=== PATIENT | male | born 1975 | race Caucasian/White ===

== ENCOUNTER 2016-10-12 05:24 | Inpatient (IN) | payer BC, OTHER ==
[2016-09-13 11:24] VITALS: BMI 40.0
[2016-09-13 11:25] LABS: BASO % 0.4 %; BASO ABS # 0.03 K/uL (0-0.2); COMPLETE YES; EOS % 1.5 %; IG% 0.6 %; LYMPH % 25.5 %; LYMPH ABS # 2.03 K/uL (1.2-3.4); MEAN CELL VOLUME 89.7 fL (80-100); MEAN CORPUSCULAR HEMOGLOBIN 30.9 pg (25-34); MEAN CORPUSCULAR HGB CONC 34.5 g/dl (32-36); MEAN PLATELET VOLUME 8.9 fL (7.4-10.4); MONO % 7.3 %; NEUT % 64.7 %; PLATELET COUNT 291 K/uL (130-400); RED BLOOD COUNT 5.24 M/uL (4.7-6.1); WHITE BLOOD COUNT 7.96 K/uL (4.8-10.8)
[2016-09-13 11:39] LABS: INR 1.2 (0.9-1.1); PARTIAL THROMBOPLASTIN RATIO 1.1; PROTHROMBIN TIME (PATIENT) 12.6 SECONDS (9.0-12.0)
[2016-09-13 11:53] LABS: BUN/CREATININE RATIO 7.4 (10-20); CALCIUM 8.8 mg/dl (8.5-10.1); CREATININE 1.4 mg/dl (0.60-1.40); POTASSIUM 4.7 mmol/L (3.5-5.1)
--- NOTE | 2016-09-13 12:09 | PAT Medication Instructions ---
Service Date Sep 13, 2016. Current Home Medication List Amphetamine Asp/Sulf/Dextramph (Adderall *), 30 MG PO BID Aripiprazole (Abilify), 2 MG PO DAILY PRN for Depression Duloxetine Hcl (Cymbalta *), 30 MG PO QAM Glucosamine-Chondroitin (Glucosamine/Chondroitin 250/200MG), 2 CAP PO QAM Lamotrigine (Lamictal), 50 MG PO HS Lorazepam (Ativan), 1 MG PO HS Multivitamin (Multivitamin), 1 TAB PO QAM Oxycodone/Acetaminophen 5MG/325MG (Percocet 5MG/325MG), 1 TABLET PO NOON PRN for Pain Rivaroxaban (Xarelto), 20 MG PO QAM Medication Instructions For Your Scheduled Surgery Rivaroxaban (Xarelto), 20 MG PO QAM (check with family doctor and/ or surgeon for instructions) - Hold the following medications 7 days prior to surgery: Glucosamine-Chondroitin (Glucosamine/Chondroitin 250/200MG), 2 CAP PO QAM - Hold the following medications the morning of surgery: Multivitamin (Multivitamin), 1 TAB PO QAM Amphetamine Asp/Sulf/Dextramph (Adderall *), 30 MG PO BID - Take the following medications the morning of surgery with a sip of water: Oxycodone/Acetaminophen 5MG/325MG (Percocet 5MG/325MG), 1 TABLET PO NOON PRN for Pain (can take up to four hours prior to surgery if needed) Duloxetine Hcl (Cymbalta *), 30 MG PO QAM Aripiprazole (Abilify), 2 MG PO DAILY PRN for Depression Lamotrigine (Lamictal), 50 MG PO AM - Take the following medications as scheduled the night before surgery: Oxycodone/Acetaminophen 5MG/325MG (Percocet 5MG/325MG), 1 TABLET PO NOON PRN for Pain Lorazepam (Ativan), 1 MG PO HS Amphetamine Asp/Sulf/Dextramph (Adderall *), 30 MG PO BID If you have any questions please call us at [phone] or [phone] ( Jia) or [phone]
[2016-09-13 12:29] LABS: URINE APPEARANCE CLEAR (CLEAR); URINE BILIRUBIN NEG (NEG); URINE COLOR YELLOW; URINE EPITHELIAL CELL AUTO 0-5 /lpf (0-5); URINE NITRITE NEG (NEG); URINE PH 6.5 (4.5-7.5); URINE SPECIFIC GRAVITY 1.016 (1.000-1.030); UROBILINOGEN NEG (NEG)
--- NOTE | 2016-09-13 12:29 | DIAGNOSTIC IMAGING REPORT ---
CHEST 2 VIEWS ROUTINE CLINICAL HISTORY: Preoperative evaluation. COMPARISON STUDY: No previous studies for comparison. FINDINGS: Lung volumes are normal. There are no areas of consolidation. There is no pneumothorax or pleural effusion. Cardiac size is normal. Mediastinal contours are normal. There is no evidence of pulmonary edema. IMPRESSION: No acute cardiopulmonary findings. Electronically signed by: Nic Sutherland M.D. 09/13/2016 12:28 PM
[2016-09-13 12:34] LABS: MANUAL MICROSCOPIC REQUIRED? NO; REVIEW REQ? NO
--- NOTE | 2016-10-11 07:06 | HISTORY & PHYSICAL EXAMINATION ---
DATE OF ADMISSION: 10/12/2016 CHIEF COMPLAINT: Medial compartmental arthritis of the left knee. HISTORY OF PRESENT ILLNESS: Jt is a very pleasant 41-year-old male who has been dealing with chronic left knee pain. X-rays and clinical examination were diagnostic for medial compartmental arthritis of the left knee. After failing years of conservative treatment including multiple injections, he elected to proceed with a left unicompartmental knee arthroplasty. PAST MEDICAL HISTORY: Significant for depression, blood clots. MEDICATIONS: Include Xarelto, Cymbalta, and lorazepam. PAST SURGICAL HISTORY: Significant for knee arthroscopy, back surgery and shoulder arthroscopy. ALLERGIES: None. FAMILY HISTORY: Noncontributory. SOCIAL HISTORY: He is , rarely drinks. He remains very active. REVIEW OF SYSTEMS: The patient complains of left knee pain. All other pertinent review of systems are negative. PHYSICAL EXAMINATION: GENERAL: He is awake, alert and oriented x3. He is in no apparent distress. He is very pleasant. HEENT: Pupils equal, round and reactive to light. Extraocular motion intact. Oral mucosa is pink and moist. VITAL SIGNS: Regular rate per radial pulse. LUNGS: Izabella symmetrically bilaterally with no audible breath sounds. ABDOMEN: Soft, nontender, nondistended. MUSCULOSKELETAL: On physical examination of the left knee, he does have a slight varus deformity. He has a lot of tenderness to palpation along the medial joint line and over the distal medial femoral condyle. IMAGING DATA: X-rays of the left knee do show arthritis of the medial compartment of the left knee with medial right-sided collapse, stress x-rays do show pentecostal of the joint line. IMPRESSION: He has had medial compartmental arthritis of the left knee. PLAN: We will proceed with a left knee unicompartmental arthroplasty. Postoperatively, he will be placed in a soft dressing and kept overnight for postoperative medical management.
[2016-10-12] VITALS (8 sets, daily range): BP systolic 106–161; BP diastolic 66–94; PULSE 76–92; TEMP 36.7–36.9; O2SAT 93–98; Ht 175.3 cm; Wt 123.0 kg
[~2016-10-12] VITALS: Ht 175.3 cm; Wt 123.0 kg
[~2016-10-12 05:24] MED LIST: ADD/10 PO; ARIP1TAB8 PO; CYM60 PO; GLUC250C5 PO; OXYC-57 PO; RIVA1TAB4 PO
[2016-10-12] MEDS ORDERED: LACTATED RINGER'S 1000ML 500 ML IV ONE (06:00)
[2016-10-12] MEDS ORDERED: GABAPENTIN 300 MG CAP PO SCH (06:00)
[2016-10-12] MEDS ORDERED: CEFAZOLIN 3000 MG/65 ML D5W 65 ML IV SCH (06:00)
[2016-10-12] MEDS ORDERED: ACETAMINOPHEN 500 MG TAB PO SCH (06:00)
[2016-10-12] MEDS ORDERED: FAMOTIDINE 20 MG TAB PO SCH (06:00)
[2016-10-12] MEDS ORDERED: LACTATED RINGER'S 1000ML 1,000 ML IV SCH (06:00)
[2016-10-12] MEDS ORDERED: ROPIVACAINE 5MG/ML 30 ML 150 MG, BUPIVACAINE/EPINEPHR 0.5% MPF 30 ML, KETOROLAC TROMETH... INFIL SCH ×7 (06:00)
[2016-10-12] MEDS ORDERED: BUPIVACAINE 0.5 % 5 MG/1 ML PF 10ML VIAL ONE (06:24)
[2016-10-12] MEDS ORDERED: BUPIVACAINE 0.25% 30 ML VIAL ONE (06:24)
--- NOTE | 2016-10-12 06:34 | History & Physical Bridge Note ---
H&P Re-Evaluation Bridge Note: I have examined the patient, reviewed the History & Physical and in the interval since the performance of the History & Physical I have noted the following changes of clinical significance: No changes noted
[2016-10-12] MEDS ORDERED: ORTHO JOINT ANESTHETIC ONE (06:37)
[2016-10-12] MEDS ORDERED: FENTANYL CITRATE INJ 50 MCG/1 ML 2 ML VIAL ONE (06:38)
[2016-10-12] MEDS ORDERED: MIDAZOLAM HCL 1 MG/ML 2ML VIAL ONE (06:38)
[2016-10-12] MEDS ORDERED: PROPOFOL IV EMULSION 10 MG/ML 20 ML VIAL IV ONE (08:02)
[2016-10-12] MEDS ORDERED: LIDOCAINE HCL 2% 2 ML VIAL (20MG/ML) ONE (08:02)
[2016-10-12] MEDS ORDERED: BACITRACIN 50000 UNIT VIAL IR ONE (09:02)
--- NOTE | 2016-10-12 09:05 | [facility] Post Operative Brief Note ---
Immediate Operative Summary Operative Date Oct 12, 2016. Pre-Operative Diagnosis Left Knee Osteoarthritis Post-Operative Diagnosis Same as peroperative Procedure(s) Performed Left Knee Uni Compartment Arthroplasty, Cemented Surgeon Dr. Zack Harrison Bungy Jump Master Surgeon(s) Tonio Heredia PA-C Estimated Blood Loss 20ml Findings as above Specimens A.) Left knee bone and tissue Complication(s) None Disposition Recovery Room / PACU
[2016-10-12] MEDS ORDERED: METOCLOPRAMIDE HCL INJ 5 MG/ML 2 ML VIAL IV PRN (09:15)
[2016-10-12] MEDS ORDERED: SOD PHOSPHATE/SOD BIPHOSPHATE ENEMA 132 ML BTL PR PRN (09:15)
[2016-10-12] MEDS ORDERED: MAGNESIUM HYDROXIDE SUSP 30 ML UDC PO PRN (09:15)
[2016-10-12] MEDS ORDERED: ARIPIprazole 1 MG/ML ORAL SOLN 150 ML BTL PO PRN (09:15)
[2016-10-12] MEDS ORDERED: ONDANSETRON INJ 2 MG/ML 2 ML VIAL IV PRN (09:15)
[2016-10-12] MEDS ORDERED: BISACODYL 10 MG SUPP PR PRN (09:15)
--- NOTE | 2016-10-12 09:44 | OPERATIVE REPORT ---
DATE OF OPERATION: 10/12/2016 PREOPERATIVE DIAGNOSIS: Medial compartmental arthritis of the left knee. POSTOPERATIVE DIAGNOSIS: Same. PROCEDURE: Left unicompartmental knee arthroplasty. SURGEON: Dr. Zack Harrison. CREWMAN MAIN BATTLE TANK: Tonio Heredia PA-C, whose assistance was necessary for positioning the leg and helping with instrumentation. ANESTHESIA: Sedation with a spinal anesthetic. COMPLICATIONS: None. CONDITION: Stable to PACU. IMPLANTS USED: I used a Biomet Collier unicompartmental left knee arthroplasty with a medium size femur, a size C tibia and a size 3 polyethylene insert. The femoral and tibial components were cemented with Palacos-G cement. INDICATIONS: Jt is a pleasant 41-year-old male who presented to my office with chronic left knee pain. X-rays and clinical examination were diagnostic for medial compartmental arthritis of the left knee. After failing years of conservative treatment including injections the pain became more debilitating. He could not do simple activities of daily living and elected to proceed with a unicompartmental knee arthroplasty. OPERATION AND FINDINGS: On 10/12/2016 he arrived at [facility] for the above procedure. He was seen in the preoperative holding area and the operative extremity was identified and signed. He was given a preoperative antibiotic, taken back to the operating room, laid on the table in supine position and put under basic sedation. He did have a spinal anesthetic. The left knee was then prepped and draped in sterile fashion. Time-out was done and the patient and operative extremity was properly identified. A midline incision was made directly over the patella. Dissection was taken down medially and the medial parapatellar approach was utilized. The medial retinaculum was released and part of the fat pad was excised. There was a lot of arthritis in the medial compartment and some arthritis in the patellofemoral joint. There was an intact ACL. There are significant osteophytes medially and these were all removed with a rongeur and osteotome. Several spoons trials were used and a size medium seemed to be the best fit. An external tibial guide was placed along with a size 4 G clamp. The proximal tibia was then resected. The tibia measured to be a size C. A drill was sent down the center of the femoral canal followed by an intramedullary mirna. A distal femoral guide was connected to the mirna with a device. Two drill holes were placed in the distal femur at the midline. The posterior femur was then resected. A trial femoral component and tibial component were placed. A size 3 seemed to be the best fit in flexion and a size 1 in full extension. A size 2 mill was then used and the distal femur was milled. It was once again retrialed and size 3 seemed to be a good fit in flexion and extension. The anterior portion of the condyle was then milled and the tibia was prepared. The femoral and tibial components were then cemented in place with Palacos-G cement. Once cement had hardened, a size 3 polyethylene insert seemed to be the best fit. The knee was brought through a full range of motion and felt to be stable. The joint was then irrigated with 3 liters of normal saline solution with bacitracin. Surrounding soft tissues were injected with 100 mL of an orthopedic pain control cocktail. The extensor mechanism was then closed with #2 FiberWire sutures and #1 Vicryl sutures. Skin was closed with 2-0 Vicryl, 3-0 V-Loc suture and a Prineo dressing. He was then placed in a soft compressive dressing, extubated, transferred [facility] and taken to the postanesthesia care unit in stable condition. He tolerated the procedure well. I attest to the content of the Intraoperative Record and any orders documented therein. Any exceptio ns are noted below.
[2016-10-12] MEDS ORDERED: ATROPINE SULFATE 0.1 MG/ML 5ML SYR IV PRN (09:45)
[2016-10-12] MEDS ORDERED: EpHEDrine SULFATE INJ 50 MG/ML AMP IV PRN (09:45)
--- NOTE | 2016-10-12 10:07 | Anesthesiology Progress Note ---
Anesthesia Post Op Note Date & Time Oct 12, 2016 at 10:06 Vital Signs Pain Intensity: 0 Vital Signs Past 12 Hours Date Time Temp Pulse Resp B/P Pulse Ox O2 Delivery O2 Flow Rate FiO2 10/12/16 09:52 37.2 84 22 134/79 97 Nasal Cannula 2 10/12/16 09:34 138/75 10/12/16 09:31 83 20 99 10/12/16 09:31 84 20 10/12/16 09:28 141/77 10/12/16 09:26 81 21 100 10/12/16 09:26 81 21 10/12/16 09:24 132/78 10/12/16 09:21 91 18 10/12/16 09:21 91 18 139/66 100 10/12/16 09:21 36.6 91 20 139/66 100 Mask 10 10/12/16 05:40 36.9 92 20 161/94 97 Room Air Notes Mental Status: alert / awake / arousable, participated in evaluation Pt Amnestic to Procedure: Yes Nausea / Vomiting: adequately controlled Pain: adequately controlled Airway Patency, RR, SpO2: stable & adequate BP & HR: stable & adequate Hydration State: stable & adequate Neuraxial Anesthesia: was administered, sensory block is resolving Anesthetic Complications: no major complications apparent
--- NOTE | 2016-10-12 10:26 | DIAGNOSTIC IMAGING REPORT ---
TWO VIEWS LEFT KNEE CLINICAL HISTORY: Postoperative examination. Left knee hemiarthroplasty. FINDINGS: AP and crosstable lateral portable views of the left knee are obtained. A left knee hemiarthroplasty of the medial compartment is in near anatomic alignment. Degenerative narrowing is seen at the patellofemoral articulation. The lateral permanent joint space appears preserved. There are large lateral marginal osteophytes as well as degenerative beaking of the tibial spine. No acute fracture is seen. There are expected postoperative changes around the knee including soft tissue edema and subcutaneous gas. IMPRESSION: Expected postoperative changes status post left knee hemiarthroplasty. No acute fracture is seen. Electronically signed by: Home Bacon M.D. 10/12/2016 10:24 AM Dictated Date/Time: 10/12/2016 10:23 AM
[2016-10-12] MEDS: D5W AND 1/2NSS + 20MEQ KCL 1,000 ML IV SCH ×2 (11:39→21:33)
[2016-10-12] MEDS: KETOROLAC TROMETHAMINE 30 MG/ML VIAL IV. SCH ×3 (11:41→23:21)
[2016-10-12] MEDS: OXYCODONE HCL IR 5 MG TAB (IMMEDIATE RELEASE) PO PRN ×2 (13:07→17:38)
[2016-10-12] MEDS: AMPHETAMINE ASP/SULF/DEXTRAMPH 10 MG TAB PO SCH (14:00)
[2016-10-12] MEDS: ACETAMINOPHEN IV 1,000 MG in EMPTY BAG 0 ML IV SCH ×2 (14:00→21:33)
[2016-10-12] MEDS: CEFAZOLIN IV 2,000 MG in DEXTROSE 5% 50ML 50 ML IV SCH ×2 (14:20→22:06)
[2016-10-12] MEDS: MoRPHine SULFATE 2 MG/ML CARP IV PRN ×2 (16:19→18:58)
[2016-10-12] MEDS: DOCUSATE SODIUM 100 MG CAP PO SCH (20:54)
[2016-10-12] MEDS ORDERED: SENNA 8.6 MG TAB PO SCH (21:00)
[2016-10-12] MEDS ORDERED: LORAZEPAM 1 MG TAB PO SCH (21:00)
[2016-10-13] MEDS: OXYCODONE HCL IR 5 MG TAB (IMMEDIATE RELEASE) PO PRN ×3 (00:03→12:50)
[2016-10-13 03:45] VITALS: BP 129/72; PULSE 81; TEMP 36.6; O2SAT 96
[2016-10-13] MEDS: MoRPHine SULFATE 2 MG/ML CARP IV PRN ×2 (03:53→08:53)
[2016-10-13 06:02] LABS: HEMATOCRIT 38.5 % (42-52); MEAN CELL VOLUME 85.7 fL (80-100); MEAN CORPUSCULAR HGB CONC 33.8 g/dl (32-36); MEAN PLATELET VOLUME 8.6 fL (7.4-10.4); PLATELET COUNT 215 K/uL (130-400); RED BLOOD COUNT 4.49 M/uL (4.7-6.1); WHITE BLOOD COUNT 12.91 K/uL (4.8-10.8)
[2016-10-13] MEDS: KETOROLAC TROMETHAMINE 30 MG/ML VIAL IV. SCH (06:33)
[2016-10-13] MEDS: ACETAMINOPHEN IV 1,000 MG in EMPTY BAG 0 ML IV SCH (06:33)
[2016-10-13 06:36] LABS: BUN/CREATININE RATIO 7.9 (10-20); CALCIUM 8.5 mg/dl (8.5-10.1); CREATININE 1.5 mg/dl (0.60-1.40); POTASSIUM 4.7 mmol/L (3.5-5.1)
[2016-10-13] MEDS: AMPHETAMINE ASP/SULF/DEXTRAMPH 10 MG TAB PO SCH (06:38)
[2016-10-13 07:35] VITALS: BP 165/76; PULSE 94; TEMP 36.9; O2SAT 95
[2016-10-13] MEDS: D5W AND 1/2NSS + 20MEQ KCL 1,000 ML IV SCH (08:00)
[2016-10-13] MEDS: DOCUSATE SODIUM 100 MG CAP PO SCH (08:28)
[2016-10-13] MEDS ORDERED: DULOXETINE (CYMBALTA) 30 MG CAP PO SCH (09:00)
[2016-10-13] MEDS ORDERED: MULTIVITAMIN TAB PO SCH (09:00)
[2016-10-13] MEDS ORDERED: RIVAROXABAN 20 MG TAB PO SCH (09:00)
[2016-10-13] MEDS ORDERED: OXYC-57 PO ×2 (09:41→09:48)
--- NOTE | 2016-10-13 09:42 | Discharge Instructions ---
Discharge Instructions Admission Reason for Admission: Left Knee Osteoarthritis Discharge Discharge Diagnosis / Problem: Left Partial Knee Replacement Discharge Goals Goal(s): Decrease discomfort, Improve function Activity Recommendations Activity Limitations: resume your previous activity Shower/Bathe: may shower/bathe in 3 days . Instructions / Follow-Up Instructions / Follow-Up may remove dressing (except glue mesh portion) and shower on Saturday Current Hospital Diet Patient's current hospital diet: Regular Diet Discharge Diet Recommended Diet: Regular Diet Procedures Procedures Performed: Left Knee Uni Compartment Arthroplasty, Cemented Pending Studies Studies pending at discharge: no Medical Emergencies . Who to Call and When: Medical Emergencies: If at any time you feel your situation is an emergency, please call 911 immediately. . Non-Emergent Contact Non-Emergency issues call your: Surgeon Call Non-Emergent contact if: wound has increased drainage, wound has increased redness . "Provider Documentation" section prepared by Zack Harrison. VTE Core Measure Inpt VTE Proph given/why not?: Other Anticoagulation (Aspirin 325 twice a day for 6 weeks)
[2016-10-13 10:13] VITALS: BP 165/76; PULSE 94; TEMP 36.9; O2SAT 95
--- NOTE | 2016-10-13 10:19 | PROGRESS NOTE ---
DATE: 10/13/2016 DATE: 10/13/2016. CHIEF COMPLAINT: Status post left partial knee replacement postop day #1. PROGRESS: Benigno was seen and examined at bedside today. Overall, he is doing fairly well. He is able to be up and walking on his leg, but he is still having a lot of soreness. He had no acute events overnight and has no other complaints. PHYSICAL EXAMINATION: LEFT LEG: The dressing is clean and dry. I can get his leg out to full extension to about 50 degrees of flexion before it becomes tight. He is neurovascularly intact. LABORATORY DATA: He has an H\T\H today of 13.0 and 38.5. His creatinine is a little elevated at 1.5. His vital signs are stable on room air and he is voiding on his own and has already had a bowel movement. X-rays postoperatively of the left knee showed the prosthesis to be in anatomical alignment without any evidence of fracture, dislocation or loosening. IMPRESSION: Status post left partial knee replacement, postop day #1. PLAN: At this point, he is doing very well. He will be seen by physical therapy today for ambulation and range of motion. We will leave the dressing in place until Saturday and he can be discharged home later this morning.
--- NOTE | 2016-10-13 12:31 | DISCHARGE SUMMARY ---
DISCHARGE DIAGNOSIS: Medial compartmental arthritis of the left knee. PROCEDURE: Left unicompartmental knee arthroplasty on 10/12/2016. SURGEON: Dr. Zack Harrison. COMPLICATIONS: None. DISCHARGE INSTRUCTIONS: 1. Adderall 30 mg twice a day. 2. Abilify 2 mg daily as needed. 3. Cymbalta 30 mg daily. 4. Glucosamine chondroitin 2 tabs a day. 5. Lamictal 50 mg at night. 6. Ativan 1 mg at night. 7. Percocet 5/325 as needed for pain. 8. Xarelto 20 mg daily. 9. Follow up with Dr. Harrison in 2 weeks. 10. Call the office of Dr. Harrison with any questions or concerns. HOSPITAL COURSE: Benigno is a pleasant 41-year-old male who presented to my office with complaints of chronic left knee pain. X-rays and clinical examination were diagnostic for medial compartmental arthritis of the left knee. After failing years of conservative treatment, he elected to undergo a partial knee replacement. On 10/12/2016, he arrived at [facility] and underwent a partial left knee arthroplasty without complications. He had a spinal anesthetic. Postoperatively, he was discharged to general orthopedic floor. His hospital course was uneventful. On postop day #1, his H\T\H was stable at 13.0 and 38.5. He was having some pain in the knee but was otherwise feeling well. He was seen by physical therapy and subsequently discharged to home with the above instructions.
[2016-11-04] MEDS ORDERED: ATV/1 PO (11:23)
[2016-11-04] MEDS ORDERED: MULT-506 PO (11:24)
[2016-11-15] MEDS ORDERED: CBCI IV (11:25)
[2016-12-06] MEDS ORDERED: OXYC20TA50 PO (13:36)
[2016-12-06] MEDS ORDERED: HYDR4TAB78 PO (13:36)
[2016-12-07] MEDS ORDERED: CEFT1INJ57 IV (10:18)
[2016-12-10] MEDS ORDERED: FLUC100T4 PO (14:55)
[2016-12-11] MEDS ORDERED: MORP1TAB11 PO (10:23)
[2016-12-13] MEDS ORDERED: XRL10 PO (09:58)
[2016-12-19] MEDS ORDERED: RFM300 PO (10:48)
[2017-01-07] MEDS ORDERED: DOXY100C76 PO (14:23)
== END 2016-10-13 13:18 | disposition home or self-care (01) | DRG 470 ==
LOC: ENRESERVDT → ENRESERVTM → C.ACU 05:24 → C.3E 09:09
PROVIDERS: ADMIT Orthopaedic Surgery; ATTEND Orthopaedic Surgery
PROC: 0SRD0J9 Replacement of Left Knee Joint with Synthetic Substitute, Cemented, Open Approach (ICD-10-PCS; principal; 2016-10-12 07:00)
DX: M17.12 Unilateral primary osteoarthritis, left knee (principal); Z68.41 Body mass index [BMI] 40.0-44.9, adult; F32.9 Major depressive disorder, single episode, unspecified; F41.9 Anxiety disorder, unspecified; G47.30 Sleep apnea, unspecified; Z99.89 Dependence on other enabling machines and devices; E66.01 Morbid (severe) obesity due to excess calories; Z86.718 Personal history of other venous thrombosis and embolism; Z79.899 Other long term (current) drug therapy; Z79.891 Long term (current) use of opiate analgesic; Z79.01 Long term (current) use of anticoagulants

== ENCOUNTER → 2016-10-19 | Outpatient (CLI) | payer OTHER ==
[~2016-10-19] MED LIST changes: +AMPH20TA2 PO; +ARIP2TAB3 PO; +ATV/1 PO; +CBCI IV; +CEFT1INJ57 IV; +CEPH500C2 PO; +CYM/30 PO; +DOXY100C76 PO; +FLUC100T4 PO; +GLUC1CAP35 PO; +HYDR4TAB78 PO; +LAMO1TAB21 PO; +LAMO25TA PO; +LVQ500 PO; +MORP1TAB11 PO; +MULT-506 PO; +OXYC-643 PO; +OXYC20TA50 PO; +OXYSR/20 PO; +RFM300 PO; +TOBRSUS OPB; +XRL10 PO; +XRL20 PO
--- NOTE | 2016-10-19 11:09 | DIAGNOSTIC IMAGING REPORT ---
ULTRASOUND LEFT LOWER EXTREMITY VENOUS CLINICAL HISTORY: Left leg pain and swelling. COMPARISON STUDY: Left lower extremity venous ultrasound dated 07/23/2011. TECHNIQUE: Real-time, grayscale, and color Doppler sonography of the deep veins of the left lower extremity was performed from the inguinal crease to the calf. Compression and augmentation were utilized. FINDINGS: There is no sonographic evidence of deep venous thrombosis identified in the left lower extremity. The common femoral, superficial femoral, and popliteal veins are patent and normally compressible. The greater saphenous vein and the profunda femoris vein at the junction with the common femoral vein are clear. The visualized calf veins are patent. A complex popliteal cyst measures 5.1 x 1.3 x 2.8 cm this contains a large calcified joint body. IMPRESSION: 1. There is no sonographic evidence of deep venous thrombosis identified in the left lower extremity. 2. There is a complex popliteal cyst as above. Electronically signed by: Home Bacon M.D. 10/19/2016 11:08 AM Dictated Date/Time: 10/19/2016 11:07 AM
[2016-10-19 14:01] LABS: INR 1.1 (0.9-1.1); PROTHROMBIN TIME (PATIENT) 11.4 SECONDS (9.0-12.0)
== END | disposition home or self-care (01) ==
LOC: C.ULTRBC 10:11
PROVIDERS: ATTEND Orthopaedic Surgery
DX: M79.605 Pain in left leg (principal); M79.89 Other specified soft tissue disorders; M71.22 Synovial cyst of popliteal space [Baker], left knee

== ENCOUNTER 2016-11-04 15:01 | Inpatient (IN) | payer OTHER ==
[~2016-11-04] VITALS: Ht 175.3 cm; Wt 112.4 kg
[~2016-11-04 15:01] MED LIST changes: -AMPH20TA2 PO; -ARIP2TAB3 PO; -CBCI IV; -CEFT1INJ57 IV; -CEPH500C2 PO; -CYM/30 PO; -DOXY100C76 PO; -FLUC100T4 PO; -GLUC1CAP35 PO; -HYDR4TAB78 PO; -LAMO1TAB21 PO; -LAMO25TA PO; -LVQ500 PO; -MORP1TAB11 PO; -OXYC-643 PO; -OXYC20TA50 PO; -OXYSR/20 PO; -RFM300 PO; -TOBRSUS OPB; -XRL10 PO; -XRL20 PO
[2016-11-04] MEDS ORDERED: SODIUM CHLORIDE 0.9% 1000ML 1,000 ML IV SCH (15:35)
[2016-11-04] MEDS ORDERED: LORAZEPAM 2 MG/ML 1 ML VIAL IV ONE (15:45)
[2016-11-04] MEDS ORDERED: ARIPIprazole 1 MG/ML ORAL SOLN 150 ML BTL PO PRN (15:45)
[2016-11-04] MEDS ORDERED: OXYC-643 PO (15:47)
[2016-11-04] MEDS ORDERED: XRL20 PO (15:47)
[2016-11-04] MEDS ORDERED: CYM/30 PO (15:58)
[2016-11-04] MEDS ORDERED: GLUC1CAP35 PO (15:58)
[2016-11-04] MEDS ORDERED: ARIP2TAB3 PO (15:58)
[2016-11-04 16:01] VITALS: O2SAT 96; Ht 175.3 cm; Wt 112.4 kg
[2016-11-04] MEDS ORDERED: AMPH20TA2 PO (16:10)
[2016-11-04] MEDS ORDERED: LAMO1TAB21 PO (16:10)
[2016-11-04] MEDS ORDERED: CEPH500C2 PO (16:10)
[2016-11-04] MEDS ORDERED: TOBRSUS OPB (16:12)
[2016-11-04 16:13] LABS: HEMATOCRIT 41.1 % (42-52); MEAN CELL VOLUME 83.2 fL (80-100); MEAN CORPUSCULAR HEMOGLOBIN 28.1 pg (25-34); MEAN CORPUSCULAR HGB CONC 33.8 g/dl (32-36); PLATELET COUNT 305 K/uL (130-400); RED BLOOD COUNT 4.94 M/uL (4.7-6.1); WHITE BLOOD COUNT 5.75 K/uL (4.8-10.8)
[2016-11-04 16:36] LABS: BUN/CREATININE RATIO 10.7 (10-20); CALCIUM 8.8 mg/dl (8.5-10.1); CREATININE 1.3 mg/dl (0.60-1.40); POTASSIUM 4.2 mmol/L (3.5-5.1)
[2016-11-04 16:38] LABS: C-REACTIVE PROTEIN 0.71 mg/dl (0-0.29)
--- NOTE | 2016-11-04 16:39 | HISTORY & PHYSICAL EXAMINATION ---
DATE OF ADMISSION: 11/04/2016 CHIEF COMPLAINT: Wound infection of the left knee. HISTORY OF PRESENT ILLNESS: Jt is a pleasant 41-year-old male who underwent a partial knee replacement 3 weeks ago. He was initially doing very well about 5 days ago, he was saying that his knee was feeling better than it did preoperatively, and he was very happy with his progress. I saw him in the office 4 days ago and he had a small opening in his wound. I put a couple of stitches in it in the office and started him on oral antibiotics. Unfortunately, the wound has gotten worse over the past 3 days. I have talked to him personally over the phone and because it seemed to be going in the wrong direction, I had him come directly to the Emergency Room. After evaluating the wound in the Emergency Room, I felt it was best to take him to the OR and do a formal I\T\D of the wound with possible poly exchange. PAST MEDICAL HISTORY: Significant for depression, blood clots. MEDICATIONS: Include Xarelto 20 mg daily, Abilify, Cymbalta, oxycodone, Ativan, Lamictal, and Adderall. PAST SURGICAL HISTORY: Significant for knee arthroscopy, lumbar surgery and a shoulder arthroscopy. ALLERGIES: WELLBUTRIN. FAMILY HISTORY: Noncontributory. SOCIAL HISTORY: He is , rarely drinks. He tries to remain active. REVIEW OF SYSTEMS: The patient complains of increasing left knee pain and infection of the left incision site. All other pertinent review of systems are negative. PHYSICAL EXAMINATION: GENERAL: He is awake, alert and oriented x3. He is in no apparent distress. He is very pleasant. HEENT: Pupils equal, round and reactive to light. Extraocular motion intact. Oral mucosa is pink and moist. HEART: Regular rate per radial pulse. LUNGS: Show symmetrically bilaterally with no audible breath sounds. ABDOMEN: Soft, nontender, nondistended. MUSCULOSKELETAL: On physical examination of the left knee, there are portions of the incision which have reopened. There is a purulent discharge from these small openings. There is no major pus. There is no effusion of the knee. The knee itself does not appear to be infected intraarticularly; however, he is having increased knee pain over the past 2 days. IMPRESSION: Infected wound of the left knee. PLAN: I plan to take him directly to the operating room and do an irrigation and debridement of the wound. If the infection does track down into the joint then I am prepared to do a poly exchange as well. Postoperatively, he will be admitted overnight on IV antibiotics and it depends how deep it went into the joint for how long he will be staying in the postoperative course thereafter. STEPHANIE
--- NOTE | 2016-11-04 16:53 | DIAGNOSTIC IMAGING REPORT ---
CHEST 2 VIEWS ROUTINE CLINICAL HISTORY: Preoperative evaluation. COMPARISON STUDY: Chest radiograph September 13, 2016. FINDINGS: Lung volumes are normal. No consolidation is identified. There is no evidence of pulmonary edema. Cardiac size is normal. Mediastinal contours are normal. There is no pneumothorax or pleural effusion. IMPRESSION: No acute cardiopulmonary findings. Electronically signed by: Nic Sutherland M.D. 11/04/2016 4:52 PM Dictated Date/Time: 11/04/2016 4:51 PM
[2016-11-04] MEDS: HYDROmorphone INJ 1 MG/ML SYR IV PRN ×6 (17:23→23:44)
[2016-11-04] MEDS ORDERED: ONDANSETRON INJ 2 MG/ML 2 ML VIAL IV PRN ×2 (18:00→20:45)
[2016-11-04] MEDS ORDERED: ATROPINE SULFATE 0.1 MG/ML 5ML SYR IV PRN (18:00)
[2016-11-04] MEDS ORDERED: HYDROmorphone INJ 2 MG/ML SYR/VIAL IV PRN (18:00)
[2016-11-04] MEDS ORDERED: LABETALOL HCL IV 5 MG/ML 20ML IV PRN ×2 (18:00→20:45)
[2016-11-04] MEDS ORDERED: KETOROLAC TROMETHAMINE 30 MG/ML VIAL IV. PRN (18:00)
[2016-11-04] MEDS ORDERED: MIDAZOLAM HCL 1 MG/ML 2ML VIAL ONE (18:02)
[2016-11-04] MEDS ORDERED: FENTANYL CITRATE INJ 50 MCG/1 ML 2 ML VIAL ONE ×2 (18:03→18:49)
[2016-11-04] MEDS ORDERED: DAKIN'S SOLN 0.25% HALF STRENGTH 473ML BTL EXT SCH (18:15)
[2016-11-04] MEDS ORDERED: VANCOMYCIN INJ 1,700 MG in SODIUM CHLORIDE 0.9% 500ML 500 ML IV ONE (18:30)
[2016-11-04] MEDS ORDERED: METOCLOPRAMIDE HCL INJ 5 MG/ML 2 ML VIAL ONE (18:43)
[2016-11-04] MEDS ORDERED: NEOSTIGMINE METHYLSULFATE 5 MG/5 ML SYR ONE (18:43)
[2016-11-04] MEDS ORDERED: LIDOCAINE HCL 2% 2 ML VIAL (20MG/ML) ONE (18:43)
[2016-11-04] MEDS ORDERED: PROPOFOL IV EMULSION 10 MG/ML 20 ML VIAL IV ONE (18:43)
[2016-11-04] MEDS ORDERED: ROCURONIUM BROMIDE 10 MG/ML 5 ML VIAL ONE (18:43)
[2016-11-04] MEDS ORDERED: GLYCOPYRROLATE INJ 0.2 MG/ML VIAL ONE (18:43)
[2016-11-04] MEDS ORDERED: ONDANSETRON INJ 2 MG/ML 2 ML VIAL ONE (18:43)
[2016-11-04] MEDS ORDERED: MoRPHine SULFATE 2 MG/ML CARP ONE ×6 (19:15→19:44)
[2016-11-04] MEDS ORDERED: BACITRACIN 50,000 UNITS IR ONE (20:07)
[2016-11-04] MEDS ORDERED: LAMO25TA PO (20:14)
[2016-11-04] MEDS ORDERED: SOD PHOSPHATE/SOD BIPHOSPHATE ENEMA 132 ML BTL PR PRN (20:45)
[2016-11-04] MEDS ORDERED: HYDROmorphone INJ 2 MG/ML SYR/VIAL ONE (20:45)
[2016-11-04] MEDS ORDERED: BISACODYL 10 MG SUPP PR PRN (20:45)
[2016-11-04] MEDS ORDERED: METOCLOPRAMIDE HCL INJ 5 MG/ML 2 ML VIAL IV PRN (20:45)
[2016-11-04] MEDS ORDERED: MAGNESIUM HYDROXIDE SUSP 30 ML UDC PO PRN (20:45)
[2016-11-04] MEDS: HYDROmorphone INJ 2 MG/ML SYR/VIAL IV PRN ×4 (20:48→21:03)
--- NOTE | 2016-11-04 21:45 | Anesthesiology Progress Note ---
Anesthesia Post Op Note Date & Time Nov 04, 2016 at 21:44 Vital Signs Pain Intensity: 6 Vital Signs Past 12 Hours Date Time Temp Pulse Resp B/P Pulse Ox O2 Delivery O2 Flow Rate FiO2 11/04/16 21:25 84 20 151/91 97 Nasal Cannula 3 11/04/16 21:15 82 20 166/79 97 Nasal Cannula 3 11/04/16 21:05 80 20 210/80 97 Nasal Cannula 3 11/04/16 20:55 78 20 187/99 97 Mask 10 11/04/16 20:45 78 20 187/99 97 Mask 10 11/04/16 20:38 37.5 80 20 168/98 97 Mask 10 11/04/16 17:09 71 129/63 98 Room Air 11/04/16 16:01 96 Room Air 11/04/16 15:04 37.2 77 18 126/77 96 Room Air Notes Mental Status: alert / awake / arousable, participated in evaluation Pt Amnestic to Procedure: Yes Nausea / Vomiting: adequately controlled Pain: adequately controlled Airway Patency, RR, SpO2: stable & adequate BP & HR: stable & adequate Hydration State: stable & adequate Anesthetic Complications: no major complications apparent Pain now tolerable.
[2016-11-04 22:00] VITALS: BP 152/91; PULSE 90; TEMP 37; O2SAT 98
[2016-11-04 22:31] VITALS: BP 142/96; PULSE 85; TEMP 36.7; O2SAT 97
[2016-11-04] MEDS: SODIUM CHLORIDE 0.9% 1000ML 1,000 ML IV SCH (22:38)
[2016-11-04] MEDS: SENNA 8.6 MG TAB PO SCH (22:42)
[2016-11-04] MEDS: KETOROLAC TROMETHAMINE 30 MG/ML VIAL IV. SCH (22:42)
[2016-11-04] MEDS: DOCUSATE SODIUM 100 MG CAP PO SCH (22:42)
[2016-11-04] MEDS: ACETAMINOPHEN 500 MG TAB PO SCH (22:43)
[2016-11-04] MEDS: LORAZEPAM 1 MG TAB PO SCH (22:52)
[2016-11-04 22:59] VITALS: BP 135/84; PULSE 91; TEMP 37; O2SAT 96
[2016-11-04] MEDS: AMPHETAMINE ASP/SULF/DEXTRAMPH 10 MG TAB PO SCH (23:47)
[2016-11-04 23:59] VITALS: BP 130/75; PULSE 91; TEMP 36.8; O2SAT 95
[2016-11-05] VITALS (8 sets, daily range): BP systolic 110–137; BP diastolic 67–78; PULSE 77–104; TEMP 36.2–37.8; O2SAT 93–98
[2016-11-05] MEDS: OXYCODONE HCL IR 5 MG TAB (IMMEDIATE RELEASE) PO PRN ×5 (02:01→21:48)
[2016-11-05] MEDS: KETOROLAC TROMETHAMINE 30 MG/ML VIAL IV. SCH ×4 (03:44→21:49)
[2016-11-05] MEDS: HYDROmorphone INJ 1 MG/ML SYR IV PRN ×6 (03:44→20:41)
[2016-11-05] MEDS: ACETAMINOPHEN 500 MG TAB PO SCH ×3 (05:44→21:47)
[2016-11-05] MEDS: SODIUM CHLORIDE 0.9% 1000ML 1,000 ML IV SCH ×2 (06:31→16:46)
[2016-11-05 06:57] LABS: MEAN CELL VOLUME 86.2 fL (80-100); MEAN CORPUSCULAR HEMOGLOBIN 27.7 pg (25-34); MEAN CORPUSCULAR HGB CONC 32.2 g/dl (32-36); MEAN PLATELET VOLUME 8.4 fL (7.4-10.4); PLATELET COUNT 288 K/uL (130-400); RED BLOOD COUNT 4.29 M/uL (4.7-6.1); WHITE BLOOD COUNT 8.49 K/uL (4.8-10.8)
--- NOTE | 2016-11-05 07:05 | OPERATIVE REPORT ---
DATE OF OPERATION: 11/04/2016 PREOPERATIVE DIAGNOSIS: Wound infection of the left knee. POSTOPERATIVE DIAGNOSIS: Same. PROCEDURE: Irrigation and debridement of the left knee wound down the extensor mechanism, followed by an opening of the extensor mechanism, irrigation, debridement, and poly exchange of the unicompartmental knee arthroplasty. SURGEON: Dr. Zack Harrison. ASSISTANTS: None. ANESTHESIA: General. COMPLICATIONS: None. CONDITION: Stable to PACU. SPECIMENS: Two superficial swab cultures and 2 deep swab cultures. INDICATIONS: Jt is a pleasant 41-year-old male who underwent a left unicompartmental knee arthroplasty about 3 weeks ago. 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 He was on Coumadin for years but was inconsistent with getting his PT/INRs, so his primary care physician switched him to Xarelto 20 mg. He stopped that preoperatively but is started back up on it postoperatively for his unicompartmental knee. He did have some bleeding and ecchymosis issues but fortunately things improved. About 5 days ago, his knee was feeling very good and he was happy with his progress. At that point, he started to notice a small opening in the incision site. I saw him in the office, I was able to evacuate some clot from this site, and I put a couple of stitches in it in the office. Over the next few days, the wound has become infected. He began having knee pain also. I elected to take him to the OR and do irrigation and debridement of a superficial infection and a possible irrigation of the left knee joint. His lab values showed a CRP of only 0.7 and a sed rate of 22 and a white count of 5.7. He was afebrile. On 11/04/2016, he was taken from the ER to the holding area. The operative extremity was identified and signed. He was then taken back to the operating room, laid on table in supine position, and put under general anesthesia. The left knee was then prepped and draped in sterile fashion. Timeout was done, and the patient and operative extremity was properly identified. The incision was opened up and there was some purulent discharge. There was not much. Cultures were taken. The extensor mechanism was exposed. Time was spent doing a careful irrigation and debridement of the extensor mechanism. There was obviously an infection in the area but did not appear too severe. There were a couple places around the medial retinaculum which felt like they were rather thin. There were no places which looked like they definitively communicated with the joint. Six liters total was used with pulse lavage as well as debridement to clean out around the extensor mechanism. Gloves were then changed and all new sterile instruments were used. Given the fact that he has been having an increase in knee pain and he was a little bit tight on examination, I felt it would be worthwhile taking cultures and opening up the joint for irrigation and debridement. The medial parapatellar approach was opened. There was a lot of serous fluid, but no signs of infection. Two cultures were taken of the deep area. Vancomycin 1500 mg was then started by anesthesia. There was a lot of clotting within the knee joint. Time was spent doing a debridement of the clot and tissue. The polyethylene liner was removed and 6 liters of normal saline solution was irrigated through the joint with pulse lavage. The joint did not appear to be infected. Two drains were placed deep, the extensor mechanism was then closed with 2-0 FiberWire and a 2-0 Vicryl suture. My decision on these suture options were based on the fact that his tissue quality was not great around the extensor mechanism and he is relatively noncompliant and very active. I was concerned for dehiscence if I used any less of a suture. The skin was then closed with #2 nylon suture in a trauma mattress fashion. Tourniquet was deflated. He was still getting a lot of oozing coming out from the incision site. He did take his Xarelto this morning and it has been difficult to control his oozing throughout this whole process. I did place a Prevena incisional VAC over the knee. He was then extubated, transferred to a [facility], and taken to the postanesthesia care unit in stable condition. He tolerated the procedure well. I attest to the content of the Intraoperative Record and any orders documented therein. Any exceptio ns are noted below.
[2016-11-05 07:28] LABS: BUN/CREATININE RATIO 10.3 (10-20); CALCIUM 7.9 mg/dl (8.5-10.1); CREATININE 1.4 mg/dl (0.60-1.40)
--- NOTE | 2016-11-05 07:36 | PROGRESS NOTE ---
DATE: 11/05/2016 CHIEF COMPLAINT: Status post I\T\D with application of incisional VAC for the left knee, postop day #1. PROGRESS: Jt was seen and examined at bedside today. Overall, he is doing fairly well, he is not having much pain in his knee and he was asleep when I went in. He had no acute events overnight and has no complaints. PHYSICAL EXAMINATION: VITAL SIGNS: Stable on 4 liters nasal cannula and is voiding on his own. LEFT KNEE: The incision VAC is to 125 mmHg of suction. The drains are in place and they are to suction appropriately. He has active dorsiflexion and plantarflexion of his left ankle and sensation is intact throughout. LABORATORY DATA: He has an H\T\H today of 11.9 and 37.0. Wound cultures are all pending. IMPRESSION: 1. Status post incision and drainage of a superficial wound infection, left knee. 2. Incision and drainage with poly exchange of the left knee without evidence of deep infection. 3. Application of incisional VAC. PLAN: He had an obvious superficial wound infection, but getting complaints of knee pain. I did do an arthrotomy once the superficial layer was cleaned and found no evidence of a deep infection. Cultures were taken deep. 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 He did have an ultrasound of his left leg about 10 days ago which was negative. Given the risk-benefit ratio and the fact of him having trouble controlling bleeding around the incision site, which is leading to infections, will hold off on the Xarelto for now. Infectious disease has been consulted for antibiotic recommendations. Will keep him on vancomycin 1700 mg every 12 hours until we get the recommendation. I will continue to follow him closely. He may be weightbearing as tolerated. KALEIDA HEALTHErica
[2016-11-05] MEDS ORDERED: VANCOMYCIN INJ 1,700 MG in SODIUM CHLORIDE 0.9% 500ML 500 ML IV SCH (08:00)
[2016-11-05] MEDS ORDERED: VANCOMYCIN INJ 1,700 MG in SODIUM CHLORIDE 0.9% 250ML 250 ML IV SCH (08:00)
[2016-11-05] MEDS: DOCUSATE SODIUM 100 MG CAP PO SCH ×2 (08:41→21:48)
[2016-11-05] MEDS: AMPHETAMINE ASP/SULF/DEXTRAMPH 10 MG TAB PO SCH ×2 (08:41→21:47)
[2016-11-05] MEDS: DULOXETINE (CYMBALTA) 30 MG CAP PO SCH (08:41)
[2016-11-05] MEDS: MULTIVITAMIN TAB PO SCH (08:42)
[2016-11-05] MEDS: PANTOprazole SOD 40 MG TAB PO SCH (08:42)
[2016-11-05] MEDS ORDERED: MULTIVITAMIN TAB PO SCH (09:00)
--- NOTE | 2016-11-05 10:37 | Medical Consult ---
Consultation Date of Consultation: Nov 05, 2016. Attending Physician: Zack Harrison DO Reason for Consultation: Superficial infection of the left knee. History of Present Illness Pt is a 41yr M that was seen and examined at bedside s/p incision and draining with poly exchange of the left knee on 11/04/[address] Harrison. Patient had a partial left knee replacement approximately 3 weeks ago. After discharge from the hospital the patient developed right eye erythema. According to the patient the erythema was from using a hospital towel in the shower during his post op course. The patient was seen at [facility] by Dr. Veloz(sp? ) and was diagnosed with hemorrhagic conjunctivitis and was given antibacterial eye drops QID. The patient reports that his eye symptoms have mostly resolved prior to this admission. The patient reports starting on Saturday11/02/15 his left knee started draining pus and that he called Dr. Harrison on Saturday after noticing pus and drainage from the incision site on his left knee. He arrived into the hospital on 11/05/16 and was taken to the OR for I&D. Upon exam the patient reports moderate left knee pain. He was seen by PT this AM and had done two laps around 3W. ROS: The patient denies fevers, chest pain, SOB, eye discharge, eye crusting, blurry vision. PMHx: Depression, blood clots (pt is taking Xarelto). PSHx: shoulder, knee and back surgery. Allergies: Buproprion. SH: Patient lives and grew up in [place], he does work in A/C and refrigeration units. with two children ages 16 and 14. Past Medical/Surgical History Medical Problems: (1) Osteoarthritis of knee (2) Postoperative wound infection Family History Noncontributory Social History Smoking Status: Former Smoker Alcohol Use: socially Drug Use: none Marital Status: Occupation Status: employed Allergies Coded Allergies: Bupropion (Unverified Allergy, Intermediate, HIVES, 10/12/16) SWELLING OF FACE AND LIPS Current Inpatient Medications Current Inpatient Medications Medications (Trade) Dose Ordered Sig/Pj Route Start Time Stop Time Status Last Admin Dose Admin Aripiprazole (Abilify Soln) 2 mg DAILY PRN PO 11/04/16 15:45 12/04/16 15:44 Duloxetine HCl (Cymbalta Cap) 30 mg QAM PO 11/05/16 09:00 12/05/16 08:59 11/05/16 08:41 30 MG Lamotrigine (Lamictal Tab) 50 mg HS PO 11/04/16 21:00 12/04/16 20:59 11/04/16 22:42 50 MG Lorazepam (Ativan Tab) 1 mg HS PO 11/04/16 21:00 12/04/16 20:59 11/04/16 22:52 1 MG Multivitamins (Multivitamin Tab) 1 tab QAM PO 11/05/16 09:00 12/05/16 08:59 11/05/16 08:42 1 TAB Amphetamine Aspartate/ Amphetam Sulf (Amphetamine Aspartate/Amph Sulf/Dextramphet) 30 mg BID PO 11/04/16 21:00 12/04/16 20:59 Hydromorphone HCl 1 mg 1 mg Q2HWA PRN IV 11/04/16 15:45 11/18/16 15:44 11/05/16 08:42 1 MG Sodium Chloride (Nss 1000ml) 1,000 ml @ 100 mls/hr Q10H IV 11/04/16 20:40 11/05/16 20:39 11/05/16 06:31 100 MLS/HR Oxycodone HCl (Roxicodone Immediate Rel Tab) 1 TABLET FOR PAIN RATING... Q4H PRN PO 11/04/16 20:45 11/18/16 20:44 11/05/16 07:22 10 MG Acetaminophen (Tylenol Tab) 1,000 mg Q8H PO 11/04/16 22:00 12/04/16 21:59 11/05/16 05:44 1,000 MG Magnesium Hydroxide (Milk Of Magnesia Susp) 30 ml Q6H PRN PO 11/04/16 20:45 12/04/16 20:44 Bisacodyl (Dulcolax Supp) 10 mg DAILY PRN OH 11/04/16 20:45 12/04/16 20:44 Sodium Biphosphate/ Sodium Phosphate (Fleet Enema) 132 ml DAILY PRN OH 11/04/16 20:45 12/04/16 20:44 Senna (Senokot Tab) 17.2 mg HS PO 11/04/16 21:00 12/04/16 20:59 11/04/16 22:42 17.2 MG Docusate Sodium (coLACE CAP) 100 mg BID PO 11/04/16 21:00 12/04/16 20:59 11/05/16 08:41 100 MG Ondansetron HCl (Zofran Inj) 4 mg Q6H PRN IV 11/04/16 20:45 12/04/16 20:44 Metoclopramide HCl (Reglan Inj) 10 mg Q6H PRN IV 11/04/16 20:45 12/04/16 20:44 Pantoprazole Sodium (Protonix Tab) 40 mg QAM PO 11/05/16 09:00 12/05/16 08:59 11/05/16 08:42 40 MG Ketorolac Tromethamine 30 mg 30 mg Q6H IV. 11/04/16 22:00 11/06/16 16:01 11/05/16 10:29 30 MG Vancomycin HCl/ Sodium Chloride (Vancomycin Inj/ Nss 500ml) 534 ml @ 125 mls/hr TODAY@0800 IV 11/05/16 08:00 11/05/16 12:17 11/05/16 08:41 125 MLS/HR Review of Systems Constitutional: No fever ENT: No sore throat, No tinnitus Respiratory: No cough, No shortness of breath, No sputum Cardiovascular: No chest pain, No edema, No orthopnea Abdomen: No nausea, No vomiting Physical Exam Date Time Temp Pulse Resp B/P Pulse Ox O2 Delivery O2 Flow Rate FiO2 11/05/16 09:48 97 Room Air 11/05/16 08:12 36.2 78 18 111/71 97 Room Air 11/05/16 07:13 Room Air CPAP 11/05/16 03:41 37.0 77 18 117/76 97 Nasal Cannula 4.0 11/05/16 01:00 36.9 87 18 135/78 97 Nasal Cannula 4.0 11/04/16 23:59 36.8 91 18 130/75 95 Nasal Cannula 4.0 11/04/16 23:50 Nasal Cannula 3.0 11/04/16 22:59 37.0 91 18 135/84 96 Nasal Cannula 4.0 11/04/16 22:31 36.7 85 18 142/96 97 Nasal Cannula 4.0 11/04/16 22:00 37.0 90 18 152/91 98 Nasal Cannula 3.0 11/04/16 22:00 98 Nasal Cannula 3.0 11/04/16 22:00 98 Nasal Cannula 3.0 11/04/16 21:35 37.2 93 20 160/87 97 Nasal Cannula 3 11/04/16 21:25 84 20 151/91 97 Nasal Cannula 3 11/04/16 21:15 82 20 166/79 97 Nasal Cannula 3 11/04/16 21:05 80 20 210/80 97 Nasal Cannula 3 11/04/16 20:55 78 20 187/99 97 Mask 10 11/04/16 20:45 78 20 187/99 97 Mask 10 11/04/16 20:38 37.5 80 20 168/98 97 Mask 10 11/04/16 17:09 71 129/63 98 Room Air 11/04/16 16:01 96 Room Air 11/04/16 15:04 37.2 77 18 126/77 96 Room Air General Appearance: WD/WN, no apparent distress Head: normocephalic Eyes: normal inspection, PERRL, EOMI, sclerae normal Respiratory/Chest: chest non-tender, lungs clear, normal breath sounds Cardiovascular: regular rate, rhythm, no edema, no gallop, no JVD, no murmur Abdomen/GI: non tender, soft Extremities/Musculoskelatal: no calf tenderness, no pedal edema, normal range of motion, + pertinent finding (surgical dressing is intact at present) Neurologic/Psych: alert, normal reflexes, oriented x 3 Laboratory Results Last 24 Hours Test 11/04/16 16:05 11/05/16 06:20 White Blood Count 5.75 K/uL 8.49 K/uL Red Blood Count 4.94 M/uL 4.29 M/uL Hemoglobin 13.9 g/dL 11.9 g/dL Hematocrit 41.1 % 37.0 % Mean Corpuscular Volume 83.2 fL 86.2 fL Mean Corpuscular Hemoglobin 28.1 pg 27.7 pg Mean Corpuscular Hemoglobin Concent 33.8 g/dl 32.2 g/dl RDW Standard Deviation 46.9 fL 48.2 fL RDW Coefficient of Variation 15.4 % 15.4 % Platelet Count 305 K/uL 288 K/uL Mean Platelet Volume 8.0 fL 8.4 fL Erythrocyte Sedimentation Rate 22 mm/hr Sodium Level 140 mmol/L 139 mmol/L Potassium Level 4.2 mmol/L 4.0 mmol/L Chloride Level 105 mmol/L 104 mmol/L Carbon Dioxide Level 25 mmol/L 27 mmol/L Anion Gap 10.0 mmol/L 8.0 mmol/L Blood Urea Nitrogen 14 mg/dl 14 mg/dl Creatinine 1.30 mg/dl 1.40 mg/dl Est Creatinine Clear Calc Drug Dose 90.6 ml/min 84.1 ml/min Estimated GFR () 77.5 70.8 Estimated GFR (Non- 66.8 61.1 BUN/Creatinine Ratio 10.7 10.3 Random Glucose 90 mg/dl 84 mg/dl Calcium Level 8.8 mg/dl 7.9 mg/dl C-Reactive Protein 0.71 mg/dl Assessment & Plan 41M w a PMH of blood clots and depression presenting s/p I&D of the left knee. Preliminary blood culture and wound cultures show the growth of a gram positive cocci and gram negative bacilli. It is unlikely this patients previous history of conjunctivitis was the source of bacteremia yet not impossible. Patient's eye symptoms are improving. Recommend Vancomycin IV and Zosyn IV and close clinical monitoring. Will await further sensitivity testing of the organisms. Thank you for letting me be involved in the care of this patient. PROVIDER ADDENDUM: patient was examined and review of detail with medical assistant supervisor. Likely patient with Staph aureus, Gram-negative to identified. Antibiotics will be adjusted tomorrow once final culture results are available. Resident Involvement: Resident Care Provided Care Provided: Adult [facility] Medicine
[2016-11-05] MEDS ORDERED: PIPERACILL/TAZOBAC IV 4.5 GM in DEXTROSE 5% 100ML 100 ML IV SCH (11:15)
[2016-11-05] MEDS ORDERED: PIPERACILL/TAZOBAC CONSULT ACTIVE PRN (11:15)
[2016-11-05] MEDS ORDERED: PIPERACILL/TAZOBAC IV 3.375 GM in DEXTROSE 5% 100ML IV ONE (12:15)
[2016-11-05] MEDS ORDERED: VANCOMYCIN CONSULT ACTIVE PRN (13:00)
[2016-11-05] MEDS ORDERED: VANCOMYCIN INJ 0 MG in SODIUM CHLORIDE 0.9% 500ML 500 ML IV SCH (13:00)
--- NOTE | 2016-11-05 13:09 | Pharmacy Progress Note ---
Pharmacy Antibiotic Consult Date of Service: Nov 05, 2016. Pharmacy Dosing Scope Pharmacy is consulted to initiate vancomycin IV dosing therapy, order appropriate labs and adjust drug dose/frequency. Subjective The patient is a 41 year old male admitted on Nov 04, 2016 at 15:44. Objective Height (Feet): 5 Height (Inches): 9.00 Weight (Kilograms): 112.400 Lab Results (24hrs): Laboratory Tests Test 11/04/16 16:05 11/05/16 06:20 BUN/Creatinine Ratio 10.7 10.3 Blood Urea Nitrogen 14 mg/dl 14 mg/dl Creatinine 1.30 mg/dl 1.40 mg/dl White Blood Count 5.75 K/uL 8.49 K/uL Assessment & Plan Assessment * 41 yo M with ? septic joint infection. S/p partial knee replacement 3 weeks ago and s/p I&D 11/04. Cultures currently with 2 of 2 GNR from knee drainage and 1 of 2 GPC from knee synovial fluid. ID consulted. On Zosyn, vancomycin. * SCr elevated to 1.4 mg/dL today, but baseline seems to be around 1.3 mg/dL. eCrCL ~ 84 mL/min. OK to schedule vancomycin. * Vancomycin 15 mg/kg administered preop 11/04 and 12 hours post-op this AM. Will continue with 15 mg/kg IV q12h. * Trough prior to 4th overall dose. This may be prior to steady-state as the patient did not receive a loading dose, but will check at this time 2nd renal dysfunction Plan * Vancomycin 1700 mg IV q12h * Trough 11/06 @ 0730 Pharmacy will continue to follow and will adjust dose/frequency as necessary. Thank you
--- NOTE | 2016-11-05 15:08 | Progress Note ---
Progress Note ID Consult Dictated #[id number] A/P: 1. Infected Left knee prosthetic joint, polymicrobial -Continue current abx, follow cultures -Check blood cultures -Will likely require prolonged course of abx, final recs will depend on micro data -Will follow, thank you
--- NOTE | 2016-11-05 17:17 | INFECT. DISEASE CONSULTATION ---
DATE OF CONSULTATION: 11/05/2016 REQUESTING PHYSICIAN: Dr. Harrison. HISTORY OF PRESENT ILLNESS: This is a 41-year-old gentleman who was admitted from home after he noticed worsening pain, swelling and dehiscence of a left knee wound. He states this began on Saturday and he noticed purulent drainage from the knee. This continued to worsen until Saturday and he presented to the Emergency Room. He was evaluated by orthopedic surgery and taken to the operating room yesterday where he underwent I\T\D, poly exchange of a prosthetic joint and VAC placement. His initial knee replacement was done 3 weeks ago secondary to osteoarthritis. He states that this went well and he was doing well at home up until the weekend. 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 He continued to worsen and noticed purulent drainage from the knee wound on Saturday. He denies any trauma to the area. Superficial wound cultures were obtained yesterday and are growing gram negative mirna. He also had intraoperative cultures which also have gram positive cocci. He has been placed on empiric antibiotics consisting of vancomycin and Zosyn and appears to be tolerating these well. He has been afebrile since admission. His white blood cell count is 8.4. His sed rate is mildly elevated at 22. On my examination today, the patient states he is having pain in the knee which is worse than his initial surgery; however, he feels it is well controlled with pain medication. He denies any fevers or chills. He has been afebrile since admission. He denies chest pain, cough, shortness of breath, nausea, vomiting or diarrhea. He is tolerating antibiotics well. He is eating well. He has no urinary complaints. All remaining review of systems are reviewed and are negative except for as noted above. PAST MEDICAL HISTORY: Significant for depression and history of blood clot. PAST SURGICAL HISTORY: Significant for knee surgery, lumbar surgery and shoulder scope. He did have revision yesterday for an infected left knee. ALLERGIES: HE IS ALLERGIC TO WELLBUTRIN. FAMILY HISTORY: Noncontributory. SOCIAL HISTORY: Negative for tobacco or drug use. He drinks on occasion. He is and lives with his family. He denies any recent sick contacts. CURRENT MEDICATIONS: Include vancomycin, Zosyn, Cymbalta, multivitamin, Protonix, Tylenol, Toradol, Lamictal, Ativan, Senokot, Colace, oxycodone, milk of magnesia, Dulcolax, Fleet enemas, Zofran and Reglan. PHYSICAL EXAMINATION: VITAL SIGNS: He is afebrile since admission to the hospital, pulse is 80, respiratory rate 20, blood pressure 110/67, oxygen saturation is 93-97% on room air. GENERAL: He is awake, alert and oriented x3 on my examination. HEENT: Mucous membranes are moist. Extraocular muscles are intact. HEART: Regular, without murmur. LUNGS: Clear to auscultation bilaterally. ABDOMEN: Soft, nontender, nondistended. EXTREMITIES: There is no lower extremity edema bilaterally. SKIN: Without rash. Examination of the left knee reveals a wound VAC to be in place. There are drains in place with serosanguineous fluid. There is no bleeding or drainage from his dressings. LABORATORY STUDIES: CBC today reveals a white blood cell count of 8.4, hemoglobin 11.9, hematocrit 37, platelets are 288. Sed rate was mildly elevated at 22 on admission. Chemistry panel today reveals a sodium of 139, potassium 4.0, chloride 104, bicarbonate 27, BUN 14, creatinine 1.4, glucose is 84. CRP is 0.71. Urine drainage culture from the Emergency Room yesterday is growing gram negative rods x2, one culture superficial is negative to date. Intraoperative culture is growing gram positive cocci and identification and sensitivity are pending. IMAGING DATA: He did have a chest x-ray in the Emergency Room which showed no acute pulmonary findings. ASSESSMENT AND PLAN: Infected left prosthetic joint which appears polymicrobial. At this time, he will remain on empiric broad spectrum antibiotics pending further ID and sensitivity of gram negative rods and gram positive cocci from his wound. Blood cultures will also be obtained. He will likely require a prolonged course of antibiotics and further microdata will dictate final antibiotic recommendations. We will follow along with you. Thank you for this consultation.
[2016-11-05] MEDS: PIPERACILL/TAZOBAC IV 3.375 GM in DEXTROSE 5% 100ML IV SCH (17:34)
[2016-11-05] MEDS ORDERED: DAKIN'S SOLN 0.25% HALF STRENGTH 473ML BTL EXT SCH (18:45)
[2016-11-05] MEDS: VANCOMYCIN INJ 1,700 MG in SODIUM CHLORIDE 0.9% 500ML 500 ML IV SCH (20:35)
[2016-11-05] MEDS: SENNA 8.6 MG TAB PO SCH (21:48)
[2016-11-05] MEDS: LORAZEPAM 1 MG TAB PO SCH (21:48)
[2016-11-06 00:20] VITALS: O2SAT 97
[2016-11-06] MEDS: HYDROmorphone INJ 1 MG/ML SYR IV PRN ×6 (00:20→23:29)
[2016-11-06] MEDS: PIPERACILL/TAZOBAC IV 3.375 GM in DEXTROSE 5% 100ML IV SCH ×3 (01:42→17:35)
[2016-11-06] MEDS: OXYCODONE HCL IR 5 MG TAB (IMMEDIATE RELEASE) PO PRN ×4 (01:43→20:52)
[2016-11-06] MEDS: KETOROLAC TROMETHAMINE 30 MG/ML VIAL IV. SCH ×3 (04:17→16:36)
[2016-11-06] MEDS: ACETAMINOPHEN 500 MG TAB PO SCH ×4 (06:01→22:05)
[2016-11-06] MEDS ORDERED: VANCOMYCIN TROUGH ONE (07:30)
[2016-11-06 07:35] VITALS: BP 99/60; PULSE 86; TEMP 36.8; O2SAT 98
[2016-11-06 08:14] LABS: CREATININE 1.4 mg/dl (0.60-1.40)
--- NOTE | 2016-11-06 08:15 | PROGRESS NOTE ---
DATE: 11/06/2016 CHIEF COMPLAINT: Status post I\T\D poly exchange of mostly superficial wound infection of the left knee. PROGRESS: Benigno was seen and examined at bedside today. He was asleep when I entered the room. He has been working well with therapy. He walked twice around the nurses' station yesterday. He says his knee is still pretty sore, especially anteriorly. It is being controlled with the pain medications. He does have [address] He was seen yesterday by infectious disease. Has no other complaints. PHYSICAL EXAMINATION: LEFT KNEE: The incisional wound VAC is to suction. The drain is also to suction and seems to be working appropriately. His left leg is out in full extension. He has active dorsiflexion and plantarflexion of his left ankle. Sensation is intact throughout. Cultures of the superficial space of the knee are growing gram positive cocci and no cultures to date. Cultures of the deep drainage of the knee and have grown gram negative bacilli and E. coli. Sensitivities are already back from the E. coli. LABORATORY DATA: Status post I\T\D of the left knee with poly exchange. PLAN: This is mostly a superficial infection, but I did do an I\T\D poly exchange as well. It did not appear to be infected deep. I do have 2 drains placed deep in his knee, given his problems with bleeding and being on Xarelto. I also placed an incisional VAC. The drainage from the Hemovac seems to be stopping and I do want to keep the drain in for another 24 hours to make sure there is no additional oozing. We will keep the incisional VAC on for a total of 7 days. He has already been seen by infectious disease. They recommended IV vancomycin and IV Zosyn until sensitivities come back. He will be in the hospital for a couple days to make sure everything is under control. He can still be up and weightbearing as tolerated.
[2016-11-06] MEDS: VANCOMYCIN INJ 1,700 MG in SODIUM CHLORIDE 0.9% 500ML 500 ML IV SCH (08:26)
[2016-11-06] MEDS: AMPHETAMINE ASP/SULF/DEXTRAMPH 10 MG TAB PO SCH ×2 (08:26→20:52)
[2016-11-06] MEDS: DOCUSATE SODIUM 100 MG CAP PO SCH ×2 (08:27→20:52)
[2016-11-06] MEDS: DULOXETINE (CYMBALTA) 30 MG CAP PO SCH (08:27)
[2016-11-06] MEDS: PANTOprazole SOD 40 MG TAB PO SCH (08:27)
[2016-11-06] MEDS: MULTIVITAMIN TAB PO SCH (08:27)
[2016-11-06 08:33] VITALS: BP 119/69
--- NOTE | 2016-11-06 09:41 | Pharmacy Progress Note ---
Pharmacy Antibiotic Prog Note Date of Service: Nov 06, 2016. Subjective: The patient is currently receiving vancomycin 1700 mg IV every 12 hours. The patient is currently on day # 3 of vancomycin IV therapy. Objective: Height (Feet): 5 Height (Inches): 9.00 Weight (Kilograms): 112.400 Levels: 11/06 0725: 9.5 mcg/mL Lab Results (24hrs): Laboratory Tests Test 11/06/16 07:25 Creatinine 1.40 mg/dl Assessment & Plan: Assessment * 41 yo M with ? septic joint infection. S/p partial knee replacement 3 weeks ago and s/p I&D 11/04. Cultures currently with 2 of 2 E.coli (slightly resistant ) from knee drainage and 1 of 2 Staph aureus (sensitivities pending) from knee synovial fluid. ID consulted. On Zosyn, vancomycin. * SCr persistently elevated to 1.4 mg/dL today, but this seems to be around baseline. eCrCL ~ 84 mL/min. * Goal vancomycin trough 15-20 mcg/mL * Trough of 9.5 mcg/mL is significantly subtherapeutic. More accumulation is anticipated both because this was drawn before steady state and 2nd BMI. However, additional accumulation is not likely to be significant enough to obtain therapeutic level at current dose. Will slightly increase dose and slightly shorten interval * Trough prior to 5th overall dose Plan * Increase vancomycin 2000 mg IV q10h * Trough 11/08 @ 0730 Pharmacy will continue to follow and will adjust dose/frequency as necessary. Thank you
--- NOTE | 2016-11-06 15:36 | Progress Note ---
Subjective Date of Service: Nov 06, 2016. Subjective cultures both superficial and deep growing S. aureus, also with E. coli. remains on broad spectrum abx with vanco and zosyn, trough low today 9.5, pharmacy following. tmax 37.8. vac remains, able to ambulate. blood cultures pending. Objective Vital Signs Date Time Temp Pulse Resp B/P Pulse Ox O2 Delivery O2 Flow Rate FiO2 11/06/16 08:33 119/69 11/06/16 07:35 36.8 86 18 99/60 98 Room Air 11/06/16 07:30 Room Air 11/06/16 00:20 97 Room Air 4.0 11/05/16 22:55 37.8 104 18 124/68 96 Room Air 11/05/16 19:05 37.0 86 18 116/69 98 Room Air 11/05/16 15:57 36.7 79 18 137/77 96 Room Air 11/05/16 15:55 Room Air Laboratory Results Item Value Date Time Gram Stain - Final Resulted 11/04/161847 Drainage-Deep Knee Left Gram Stain - Final Resulted 11/04/161848 Drainage-Deep Knee Left Gram Stain - Final Resulted 11/04/16 1900 Joint Fluid/Space (Synovial) Knee Left Gram Stain - Final Resulted 11/04/16 190 Joint Fluid/Space (Synovial) Knee Left Gram Stain - Final Resulted 11/04/161847 Drainage-Deep Knee Left Gram Stain - Final Resulted 11/04/161848 Drainage-Deep Knee Left Gram Stain - Final Resulted 11/04/16 190 Joint Fluid/Space (Synovial) Knee Left Gram Stain - Final Resulted 11/04/161847 Drainage-Deep Knee Left Gram Stain - Final Resulted 11/04/161848 Drainage-Deep Knee Left Gram Stain - Final Resulted 11/04/16 1900 Joint Fluid/Space (Synovial) Knee Left Gram Stain - Final Resulted 11/04/16 1900 Joint Fluid/Space (Synovial) Knee Left Last 24 Hours Test 11/06/16 07:25 Creatinine 1.40 mg/dl Est Creatinine Clear Calc Drug Dose 84.1 ml/min Estimated GFR () 70.8 Estimated GFR (Non- 61.1 Vancomycin Level Trough 9.5 mcg/ml Assessment and Plan (1) Postoperative wound infection Assessment & Plan: continue broad spectrum abx for now, E. coli sensitivities reviewed, await final sensitivities for S. aureus. final abx recs will depend on culture results. blood cultures pending. will likely need prolonged course of abx, final recs pending. will follow.
[2016-11-06 15:50] VITALS: BP 123/79; PULSE 97; TEMP 37.7; O2SAT 97
[2016-11-06] MEDS: VANCOMYCIN INJ 2,000 MG in SODIUM CHLORIDE 0.9% 500ML 500 ML IV SCH (17:15)
[2016-11-06] MEDS: LORAZEPAM 1 MG TAB PO SCH (20:51)
[2016-11-06] MEDS: SENNA 8.6 MG TAB PO SCH (20:52)
[2016-11-06 23:29] VITALS: BP 137/76; PULSE 94; TEMP 37.4; O2SAT 94
[2016-11-07] MEDS: HYDROmorphone INJ 1 MG/ML SYR IV PRN ×6 (01:50→19:21)
[2016-11-07] MEDS: VANCOMYCIN INJ 2,000 MG in SODIUM CHLORIDE 0.9% 500ML 500 ML IV SCH (01:57)
[2016-11-07] MEDS: PIPERACILL/TAZOBAC IV 3.375 GM in DEXTROSE 5% 100ML IV SCH ×2 (01:58→09:33)
[2016-11-07] MEDS: OXYCODONE HCL IR 5 MG TAB (IMMEDIATE RELEASE) PO PRN ×3 (03:28→15:24)
[2016-11-07] MEDS: ACETAMINOPHEN 500 MG TAB PO SCH ×3 (06:03→21:27)
[2016-11-07 08:31] VITALS: BP 121/69; PULSE 96; TEMP 36.7; O2SAT 96
--- NOTE | 2016-11-07 08:45 | PROGRESS NOTE ---
DATE: 11/07/2016 CHIEF COMPLAINT: Status post I\T\D of the left knee with poly exchange, postop day #3. PROGRESS: Benigno was seen and examined at bedside today. He had a lot of soreness in his knee overnight. He has been up and ambulating, but he does continue to report a lot of knee pain. He has not had any excessive drainage. He had no problems overnight and no complaints. PHYSICAL EXAMINATION: He does have some swelling around his knee, but it does not look grossly infected at this point. The wound VAC is to full suction. The drain was removed at bedside today. VITAL SIGNS: All stable on room air. He is voiding on his own and has not had a bowel movement yet. LABS: His blood cultures come back no growth to date. His superficial wound cultures come back rare MRSA and deep cultures are growing out E. coli and staph. IMPRESSION: Status post incision and drainage of the left knee, postop day #3. PLAN: The deep drains were removed today. I will leave the wound VAC on. Because of the blood cultures came back no growth to date per preliminary results I am going to order a PIC line placed and he is likely going to need IV antibiotics. I told him HE will likely be with us today and I will send him home tomorrow on antibiotics. He does have some questions for infectious disease regarding potential MRSA infection. He can continue to be weightbearing as tolerated.
[2016-11-07] MEDS: AMPHETAMINE ASP/SULF/DEXTRAMPH 10 MG TAB PO SCH ×2 (09:00→21:00)
[2016-11-07] MEDS: DULOXETINE (CYMBALTA) 30 MG CAP PO SCH (09:28)
[2016-11-07] MEDS: MULTIVITAMIN TAB PO SCH (09:28)
[2016-11-07] MEDS: DOCUSATE SODIUM 100 MG CAP PO SCH ×2 (09:28→21:26)
[2016-11-07] MEDS: PANTOprazole SOD 40 MG TAB PO SCH (09:28)
--- NOTE | 2016-11-07 13:07 | Progress Note ---
Subjective Date of Service: Nov 07, 2016. Subjective Pt evaluation today including: conversation w/ patient, conversation w/ family , physical exam, chart review, lab review pt seen in followup, at bedside. picc line placed this morning, blood cultures negative to date. low grade fever yesterday afternoon, tmax 37.7, now afebrile. has been on vanco and zosyn, tolerating well. final cultures from wound with e. coli and MRSA. Having pain, has questions regarding pain control and transition to pain meds at home, will discuss with ortho. drains removed today, vac remains in place, scheduled for removal on saturday per . No nausea /vomiting/diarrhea. no labs today. for tentative d/c tomorrow on IV abx. No other complaints. Pt and have questions regarding MRSA infection and treatment moving forward. Concerned as they have 2 children at home, worried about household transmission, if any. Also have multiple questions regarding hospital protocol with regards to isolation procedures, laundering of hospital lines, asking how gowns/bed lines are washed here, would like to know the name of the laundry service. Unfortunately, I do not have this information to provide. State they are concerned that infection was picked up here at last hospital stay, also have concerns regarding a visit to an eye doctor in between admissions, do not provide any detail regarding this, they are in the process of pursuing their options. and pt both state that the pt left the hospital after his initial surgery with no assist and was doing well at home, pt states he felt his pain control with Percocet was not adequate but did state he was able to ambulate and increase his range of motion significantly after initial surgery, states he felt well for 2 weeks post op, then had upper GI illness with vomiting and diarrhea and noticed increased pain in knee after this. then had wound opening with purulent drainage for 1 day ferry [employer], did provide pictures from his phone on initial consult. Was taken to OR and wound cultures were obtained. blood cultures done 11/05 and are negative to date, not yet final. Pt and were updated regarding culture results. He states he was told that he had a staph bloodstream infection, he denies having cultures done prior to 11/05, I did inform him that cultures are negative but not yet final. wound culture just updated, also now with peptostreptococcus, updated after my exam. Objective Vital Signs Date Time Temp Pulse Resp B/P Pulse Ox O2 Delivery O2 Flow Rate FiO2 11/07/16 08:31 36.7 96 16 121/69 96 Room Air 11/07/16 08:00 Room Air 11/06/16 23:29 37.4 94 18 137/76 94 Room Air 11/06/16 23:20 BiPAP 11/06/16 15:50 37.7 97 18 123/79 97 Room Air 11/06/16 15:15 Room Air Physical Exam General Appearance: WD/WN, no apparent distress Respiratory/Chest: normal breath sounds, no respiratory distress Neurologic/Psychiatric: alert, oriented x 3 Skin: normal color Comments: left knee with vac in place, no bleeding/drainage from wound. drains out. still with warmth and edema left knee, tender to palpation Laboratory Results Item Value Date Time Gram Stain - Final Resulted 11/04/16 1900 Joint Fluid/Space (Synovial) Knee Left Gram Stain - Final Resulted 11/04/16 1900 Joint Fluid/Space (Synovial) Knee Left Gram Stain - Final Resulted 11/04/161848 Drainage-Deep Knee Left Gram Stain - Final Resulted 11/04/16 184 Drainage-Deep Knee Left Blood Culture - Preliminary Resulted 11/05/16 1551 Blood NO GROWTH TO DATE. Blood Culture - Preliminary Resulted 11/05/16 1545 Blood NO GROWTH TO DATE. Item Value Date Time Gram Stain - Final Resulted 11/04/16 184 Drainage-Deep Knee Left Gram Stain - Final Resulted 11/04/16 184 Drainage-Deep Knee Left Gram Stain - Final Resulted 11/04/16 1900 Joint Fluid/Space (Synovial) Knee Left Gram Stain - Final Resulted 11/04/16 1900 Joint Fluid/Space (Synovial) Knee Left Blood Culture - Preliminary Resulted 11/05/16 1545 Blood NO GROWTH TO DATE. Blood Culture - Preliminary Resulted 11/05/16 1551 Blood NO GROWTH TO DATE. Assessment and Plan (1) Postoperative wound infection Assessment & Plan: will transition to dapto, vanco trough yesterday was 9.5, suspect vanco dosing will be difficult, additionally vanco franchesca =2. will check baseline cpk. will also add rifampin. He will be placed on po levaquin for treatment of e coli, this will address peptostreptococcus as well. He will need 6 weeks of IV dapto and po rifampin, he understands and is agreeable to home IV abx. insurance approval pending. He will likely not require long course of levaquin, will follow in office 2 weeks post d/c to assess his response to treatment and hopefully can stop levaquin after 2 weeks. He will need weekly labs while on dapto, cbc with diff, cpk, chemistry, LFT's esr, crp. We did discuss abx side effects, including c diff, he is encourage to use probiotics while on abx. avoid etoh. I did discuss transition of MRSA at home, explained that transfer can occur if anyone is touching wound, I did also explain that MRSA can become part of nml skin devin and can be transmitted to surfaces as well. They are instructed to keep wound covered (now has vac) and use good hand washing at home. Pts clothing /towels etc can be washed separate on hot cycle as well. I did attempt to answer their questions regarding isolation procedures and hospital cleaning protocol to the best of my knowledge but was not able to answer all questions. is very concerned that infection was contracted in hospital and states she is very frustrated as he did appear to have significant recovery for first 2 weeks post op. I have asked them to follow up with ID in 2 weeks (or sooner if any clinical worsening) to assess response to therapy. He will have weekly labs drawn while on dapto. He will address pain management with surgery. All questions were answered. No contraindication to d/c from ID standpoint when IV abx at home are in place. Tentative stop date for dapto/rifampin 12/19.
[2016-11-07] MEDS: RIFAMPIN 300 MG CAP PO SCH ×2 (13:53→21:27)
[2016-11-07] MEDS: DAPTOmycin IV 700 MG in SODIUM CHLORIDE 0.9% 50ML 50 ML IV SCH (13:53)
[2016-11-07] MEDS: LEVOFLOXACIN 500 MG TAB PO SCH (13:53)
[2016-11-07 14:55] VITALS: BP 130/80; PULSE 98; TEMP 37.2; O2SAT 96
[2016-11-07] MEDS ORDERED: HYDROmorphone HCL 2 MG TAB PO PRN (17:45)
[2016-11-07] MEDS ORDERED: HYDR4TAB78 PO (17:49)
--- NOTE | 2016-11-07 17:52 | Discharge Instructions ---
Discharge Instructions Admission Reason for Admission: Postoperative Wound Infection Discharge Discharge Diagnosis / Problem: Infected Left Knee Discharge Goals Goal(s): Decrease discomfort, Improve function Activity Recommendations Activity Limitations: resume your previous activity Shower/Bathe: keep incision dry may shower, just keep L knee dry . Instructions / Follow-Up Instructions / Follow-Up follow up with Dr Harrison on Saturday, call for appt time [phone]. Follow up with ID in 2 weeks Current Hospital Diet Patient's current hospital diet: Regular Diet Discharge Diet Recommended Diet: Regular Diet Procedures Procedures Performed: Incision and Drainage Left Knee with Poly Exchange Pending Studies Studies pending at discharge: no Medical Emergencies . Who to Call and When: Medical Emergencies: If at any time you feel your situation is an emergency, please call 911 immediately. . Non-Emergent Contact Non-Emergency issues call your: Surgeon Call Non-Emergent contact if: wound has increased drainage, wound has increased redness . "Provider Documentation" section prepared by Zack Harrison. VTE Core Measure Inpt VTE Proph given/why not?: Treatment not indicated
--- NOTE | 2016-11-07 19:29 | PROGRESS NOTE ---
DATE: 11/07/2016 CHIEF COMPLAINT: Status post I\T\D of the left knee, postop day #3. PROGRESS: Jt was seen and examined at bedside today. Overall, he is still having a lot of soreness in his knee. He has not regained a lot of flexion. The wound VAC is still in place. He has been seen by infectious disease. He has had no acute events throughout the day today. He has no complaints. Physical examination of the left knee; the wound VAC was removed at bedside today. The wound looked good, there was a little bit of purulent discharge extending out between some of the stitches. It was not a lot of drainage, but enough that I wanted to place another incisional VAC. I did not notice any maceration or necrosis of the skin tissue. He did have some small fracture blisters from the swelling around the sides. LABORATORIES: His blood cultures have come back no growth to date. His final superficial cultures came back MRSA. His deep cultures came back E. coli. IMPRESSION: Status post incision and drainage of the left knee. PLAN: He has been seen by infectious disease. He was changed to IV daptomycin and oral rifampin, which he will be on for about 6 weeks. He also will be on Levaquin for about 2 weeks for the possible E. coli deep within his knee. I am going to change his pain medications to 4 mg oral Dilaudid every three hours to help with his pain. He may be weightbearing as tolerated. The VAC sponge was just changed and he is good for another 7 days until I see him back in the clinic on Saturday. I discussed all this at bedside today. Infectious disease has answered a lot of his questions regarding how he could have contracted the MRSA infection. He will follow up with infectious disease in 2 weeks and I will see him in the office on Saturday for a dressing change. STEPHANIE
[2016-11-07] MEDS ORDERED: NURSING VERBAL MED ORDER ONE (20:30)
[2016-11-07] MEDS ORDERED: OXYCODONE HCL 20 MG TABCR (OXYCONTIN) PO SCH (20:45)
[2016-11-07] MEDS ORDERED: HYDROmorphone HCL 4 MG/ML SYR IV PRN ×2 (20:45)
[2016-11-07] MEDS: OXYCODONE HCL 20 MG TABCR (OXYCONTIN) PO SCH (21:27)
[2016-11-07] MEDS: SENNA 8.6 MG TAB PO SCH (21:27)
[2016-11-07] MEDS: LORAZEPAM 1 MG TAB PO SCH (21:27)
[2016-11-07 23:27] VITALS: BP 117/76; PULSE 88; TEMP 37.4; O2SAT 95
[2016-11-07] MEDS: HYDROmorphone HCL 2 MG TAB PO PRN (23:43)
[2016-11-08] MEDS: HYDROmorphone HCL 2 MG TAB PO PRN ×4 (05:17→15:43)
[2016-11-08] MEDS: ACETAMINOPHEN 500 MG TAB PO SCH ×2 (06:24→13:47)
--- NOTE | 2016-11-08 07:12 | PROGRESS NOTE ---
DATE: 11/08/2016 CHIEF COMPLAINT: Status post I\T\D of the left knee postop day #4. PROGRESS: Benigno was seen and examined at bedside today. He was able to sleep through the night. Overall he thinks his knee is actually feeling better. He states it is the best it has felt since he has been admitted. He was started on OxyContin last night and his Dilaudid was increased to 6 mg tablets, he seems to be tolerating it well. PHYSICAL EXAMINATION: LEFT KNEE: The incisional VAC is to suction. He is neurovascularly intact. IMPRESSION: Status post incision and drainage of the left knee, postop day #4. PLAN: We have been having trouble with pain control with his knee since admission. Last night was the first he was able to get some sleep. I am going to keep him throughout the day today to make sure his pain is okay before we discharge him to home. I will be back this afternoon and if everything looks okay I will discharge him to home on oral pain medications and the IV antibiotics will be set up for him.
[2016-11-08] MEDS ORDERED: VANCOMYCIN TROUGH ONE (07:30)
[2016-11-08] MEDS: AMPHETAMINE ASP/SULF/DEXTRAMPH 10 MG TAB PO SCH (07:35)
[2016-11-08 07:42] VITALS: BP 117/82; PULSE 79; TEMP 36.8; O2SAT 98
[2016-11-08] MEDS: DULOXETINE (CYMBALTA) 30 MG CAP PO SCH (08:53)
[2016-11-08] MEDS: PANTOprazole SOD 40 MG TAB PO SCH (08:53)
[2016-11-08] MEDS: OXYCODONE HCL 20 MG TABCR (OXYCONTIN) PO SCH (08:53)
[2016-11-08] MEDS: DOCUSATE SODIUM 100 MG CAP PO SCH (08:53)
[2016-11-08] MEDS: MULTIVITAMIN TAB PO SCH (08:54)
[2016-11-08] MEDS: RIFAMPIN 300 MG CAP PO SCH (08:54)
[2016-11-08] MEDS: LEVOFLOXACIN 500 MG TAB PO SCH (11:10)
[2016-11-08] MEDS: DAPTOmycin IV 700 MG in SODIUM CHLORIDE 0.9% 50ML 50 ML IV SCH (13:47)
[2016-11-08 15:47] VITALS: BP 125/80; PULSE 87; TEMP 37.2; O2SAT 99
[2016-11-08] MEDS ORDERED: RFM300 PO (15:47)
[2016-11-08] MEDS ORDERED: HYDR4TAB78 PO (15:47)
[2016-11-08] MEDS ORDERED: LVQ500 PO (15:47)
[2016-11-08] MEDS ORDERED: OXYSR/20 PO (15:47)
[2016-11-08 15:58] VITALS: BP 125/80; PULSE 87; TEMP 37.2; O2SAT 99
--- NOTE | 2016-11-08 18:13 | PROGRESS NOTE ---
DATE: 11/08/2016 CHIEF COMPLAINT: Status post I\T\D of the left knee, postop day #4. PROGRESS: Benigno was seen and examined at bedside today. Overall, he is still having some pain in his knee, but he said it was now tolerable and manageable. He seems to be working better with these oral pain medications. He is currently getting the IV antibiotics and just had his last dose of daptomycin. He is ready for discharge to home. PHYSICAL EXAMINATION: LEFT KNEE: The VAC sponge in place. There is some swelling around the knee, but it does seem to be improving. He is neurovascularly intact. IMPRESSION: Status post incision and drainage of the left knee, postop day #4. PLAN: Will go ahead and discharge him to home. We will send him home on oral Dilaudid, OxyContin and then oral rifampin and Levaquin as well as IV daptomycin. He will be on antibiotics for up to 6 weeks. He will follow up with infectious disease in 2 weeks and follow up with me in the office on Saturday for a VAC dressing change.
--- NOTE | 2016-11-08 21:36 | DISCHARGE SUMMARY ---
DISCHARGE DIAGNOSIS: Infection of the left knee. PROCEDURE: Superficial washout with a deep I\T\D of the knee with poly exchange. DISCHARGE INSTRUCTIONS: 1. Daptomycin 700 mg daily for 6 weeks. 2. Rifampin 300 mg twice a day for 6 weeks. 3. Levaquin 500 mg daily for 2 weeks. 4. OxyContin 20 mg twice a day for 2 weeks. 5. Dilaudid 4-6 mg every 3 hours as needed for pain. 6. Adderall 20 mg twice a day. 7. Abilify 2-4 mg daily. 8. Cymbalta 30 mg daily. 9. Lamotrigine 100 mg at night. 10. Ativan 1 mg daily. 11. Daily multivitamin. 12. Tobramycin eyedrops for conjunctivitis. 13. Follow up in orthopedic clinic on Saturday for a VAC sponge change. 14. Follow up with infectious disease in 2 weeks. HOSPITAL COURSE: Benigno is a pleasant 41-year-old male who underwent a unicompartmental knee arthroplasty for medial compartmental arthritis over 3 weeks ago. For the first 2 weeks, he was slowly improving and doing well and then began having wound complications. A small area of drainage which got worse and it showed infections. On November 04, I brought him to the ER as a personal patient. I did not like the look of the wound and it appeared to be an aggressive bacteria and I decided to take him straight to the operating room. His sed rate and CRP were mildly elevated. He was having increased knee pain. During the procedure, he had obvious purulent discharge and infection in the superficial region and that was washed out extensively but given his new increasing knee pain, I decided to do a deep arthrotomy. It did not appear to be infected, but I did take cultures. I did a full washout and a poly exchange deep in his knee. I put 2 drains deep in his knee and after closing the superficial layer, I placed an incisional VAC. 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 I think that that has been causing a lot of the wound complications and increased drainage. Given the risk-benefit ratio, I decided to keep him off the Xarelto for now until we got the wound better controlled. He was then discharged to general orthopedic floors and started on vancomycin 1700 mg twice a day. Infectious disease was consulted. His hospital course was mostly complicated just with pain and it was difficult to control his pain throughout the process. I had him on IV Dilaudid and changed him to oral Dilaudid and then 5 mg oral OxyContin and that seemed to improve. On postop day #1, he was able to ambulate some with physical therapy, was having a lot of pain in his knee. The VAC sponge looked good and he was consulted with infectious disease. On postop day #2, he continued to do well. He was changed to IV daptomycin and rifampin. The VAC sponge was in place. On postop day #3, he continued to slowly improve. He was still having a lot of pain in his knee. The cultures came back positive for MRSA in the superficial region and E. coli in the deep region. Levaquin was added to his antibiotic regimen. The VAC sponge was changed later in the evening. There was a little bit of drainage, but overall the wound looked good into the VAC. A new incisional VAC was placed. On postop day #4, he has since been switched to 6 mg oral Dilaudid and 20 mg of OxyContin twice a day and that seemed to be working. He says his knee was improving. He was walking better and moving more with physical therapy. He was subsequently discharged to home with the above instructions.
[2016-11-15] MEDS ORDERED: CBCI IV (11:25)
[2016-12-06] MEDS ORDERED: OXYC20TA50 PO (13:36)
[2016-12-06] MEDS ORDERED: HYDR4TAB78 PO (13:36)
[2016-12-07] MEDS ORDERED: CEFT1INJ57 IV (10:18)
[2016-12-10] MEDS ORDERED: FLUC100T4 PO (14:55)
[2016-12-11] MEDS ORDERED: MORP1TAB11 PO (10:23)
[2016-12-13] MEDS ORDERED: XRL10 PO (09:58)
[2016-12-19] MEDS ORDERED: RFM300 PO (10:48)
[2017-01-07] MEDS ORDERED: DOXY100C76 PO (14:23)
== END 2016-11-08 17:15 | disposition home health service (06) | DRG 487 ==
LOC: ENRESERVDT → ENRESERVTM → C.EDB 15:02 → C.MSW 15:44 → UNDOADMIN 15:44
PROVIDERS: ADMIT Orthopaedic Surgery; ATTEND Orthopaedic Surgery
PROC: 0S9D0ZZ Drainage of Left Knee Joint, Open Approach (ICD-10-PCS; 2016-11-04)
PROC: 0SUW09Z Supplement Left Knee Joint, Tibial Surface with Liner, Open Approach (ICD-10-PCS; principal; 2016-11-04 18:00)
DX: T84.54XA Infection and inflammatory reaction due to internal left knee prosthesis, initial encounter (principal); B96.20 Unspecified Escherichia coli [E. coli] as the cause of diseases classified elsewhere; F32.9 Major depressive disorder, single episode, unspecified; Z86.718 Personal history of other venous thrombosis and embolism; Z79.01 Long term (current) use of anticoagulants; Z79.899 Other long term (current) drug therapy; Z88.8 Allergy status to other drugs, medicaments and biological substances; Z87.891 Personal history of nicotine dependence; Y83.1 Surgical operation with implant of artificial internal device as the cause of abnormal reaction of the patient, or of later complication, without mention of misadventure at the time of the procedure

== ENCOUNTER 2016-11-11 15:11 | Emergency (ER) | payer OTHER ==
[~2016-11-11] VITALS: Ht 175.3 cm; Wt 112.0 kg
[~2016-11-11 15:11] MED LIST changes: -ADD/10 PO; +AMPH20TA2 PO; -ARIP1TAB8 PO; +ARIP2TAB3 PO; +CYM/30 PO; -CYM60 PO; +GLUC1CAP35 PO; -GLUC250C5 PO; +HYDR4TAB78 PO; +LAMO1TAB21 PO; +LVQ500 PO; -OXYC-57 PO; +OXYSR/20 PO; +RFM300 PO; -RIVA1TAB4 PO; +TOBRSUS OPB
[2016-11-11 15:30] VITALS: TEMP 36.8; Ht 175.3 cm; Wt 112.0 kg
[2016-11-11 16:24] VITALS: BP 128/69; PULSE 81; O2SAT 96
--- NOTE | 2016-11-12 00:50 | ORTHOPEDIC CONSULTATION ---
DATE OF CONSULTATION: 11/11/2016 CHIEF COMPLAINT: Draining an incisional VAC on the left knee. HISTORY OF PRESENT ILLNESS: Benigno is a 41-year-old male who underwent an I\T\D of his left knee for a MRSA infection a week ago. Postoperatively an incisional VAC was placed. Unfortunately, he has been having a lot of drainage and the reservoir has been filling up. He went through 3 reservoirs in the past 3 days. He was scheduled to see me in the office on Saturday, but he was out of reservoirs, this was more draining than I would like, so I told him to come to the ER as a personal patient of [facility] for evaluation and dressing change. PHYSICAL EXAMINATION: The VAC sponge was still to good suction. We did remove the VAC sponge. The majority of the wound looked to be closed. He did not have a lot of redness around the knee, but it was swollen. I was able to squeeze out a little bit of purulent material between a couple of the stitches. IMPRESSION: Incisional VAC sponge on the left knee. PLAN: The VAC sponge was removed and a dry dressing was placed. I told him he could change the dressings every other day. I will see him in the office now on Saturday to see how the wound is looking. I told him he can expect to still have some drainage over the next week. I will really try to get this under control. He is on IV antibiotics and oral rifampin by infectious disease and he will follow up with them next week as well. He is adequate with his pain medications and he was then discharged from the Emergency Room.
[2016-11-15] MEDS ORDERED: CBCI IV (11:25)
[2016-12-06] MEDS ORDERED: HYDR4TAB78 PO (13:36)
[2016-12-06] MEDS ORDERED: OXYC20TA50 PO (13:36)
[2016-12-07] MEDS ORDERED: CEFT1INJ57 IV (10:18)
[2016-12-10] MEDS ORDERED: FLUC100T4 PO (14:55)
[2016-12-11] MEDS ORDERED: MORP1TAB11 PO (10:23)
[2016-12-13] MEDS ORDERED: XRL10 PO (09:58)
[2016-12-19] MEDS ORDERED: RFM300 PO (10:48)
[2017-01-07] MEDS ORDERED: DOXY100C76 PO (14:23)
== END 2016-11-11 16:28 | disposition home or self-care (01) ==
LOC: C.EDB 15:12 → C.EDD 16:28
DX: M96.843 Postprocedural seroma of a musculoskeletal structure following other procedure (principal); A49.02 Methicillin resistant Staphylococcus aureus infection, unspecified site

== ENCOUNTER → 2016-11-12 | Outpatient (CLI) | payer OTHER ==
[~2016-11-12] MED LIST changes: +CBCI IV; +CEFT1INJ57 IV; +DOXY100C76 PO; +FLUC100T4 PO; +MORP1TAB11 PO; +OXYC20TA50 PO; +XRL10 PO
[2016-11-12 14:17] LABS: BASO % 0.4 %; BASO ABS # 0.03 K/uL (0-0.2); COMPLETE YES; EOS % 3.7 %; HEMATOCRIT 36.1 % (42-52); IG% 0.7 %; LYMPH ABS # 1.53 K/uL (1.2-3.4); MEAN CELL VOLUME 82.8 fL (80-100); MEAN CORPUSCULAR HEMOGLOBIN 27.8 pg (25-34); MEAN CORPUSCULAR HGB CONC 33.5 g/dl (32-36); MEAN PLATELET VOLUME 8.4 fL (7.4-10.4); MONO % 8.2 %; PLATELET COUNT 407 K/uL (130-400); RED BLOOD COUNT 4.36 M/uL (4.7-6.1); WHITE BLOOD COUNT 6.95 K/uL (4.8-10.8)
[2016-11-12 16:29] LABS: ALT/SGPT 30 U/L (12-78); BLOOD UREA NITROGEN 13 mg/dl (7-18); BUN/CREATININE RATIO 10.1 (10-20); C-REACTIVE PROTEIN 7.89 mg/dl (0-0.29); CALCIUM 9.5 mg/dl (8.5-10.1); CARBON DIOXIDE 26 mmol/L (21-32); CHLORIDE 102 mmol/L (98-107); GLUCOSE 123 mg/dl (70-99); POTASSIUM 4.2 mmol/L (3.5-5.1); SODIUM 138 mmol/L (136-145)
[2016-11-12 16:32] LABS: ALB/GLOB RATIO 0.6 (0.9-2); ALKALINE PHOSPHATASE 61 U/L (45-117); AST/SGOT 17 U/L (15-37)
--- NOTE | 2016-11-13 17:20 | CODING QUERY NO DIAGNOSIS ---
Valid Physician Order Needed A valid physician order must be submitted in order to properly bill for the service(s) provided, including date of service(s), valid diagnosis, and physician signature. If these tests are done on a recurring basis the original physican order must be submitted in order to code and bill for the service(s) provided. Please fax us the original, signed physician order so that we may expedite billing to [phone] DOS 11/12/16 * CMP * CREATINE PHOSPHOKINASE * C- REACTIVE PROTEIN * CBC W/ AUTO DIFF * ERYTHROCYTE SEDIMENTATION RATE Thank you Merline [facility] Information Management
== END | disposition home or self-care (01) ==
LOC: C.LABSPEC 13:59
PROVIDERS: ATTEND Orthopaedic Surgery
DX: I10 Essential (primary) hypertension (principal); T81.4XXA Infection following a procedure, initial encounter; Y84.9 Medical procedure, unspecified as the cause of abnormal reaction of the patient, or of later complication, without mention of misadventure at the time of the procedure

== ENCOUNTER → 2016-11-19 | Outpatient (CLI) | payer OTHER ==
[~2016-11-19] MED LIST changes: -TOBRSUS OPB
[2016-11-19 15:02] LABS: HEMATOCRIT 37.3 % (42-52); MEAN CORPUSCULAR HEMOGLOBIN 27.1 pg (25-34); MEAN CORPUSCULAR HGB CONC 34.3 g/dl (32-36); MEAN PLATELET VOLUME 7.9 fL (7.4-10.4); PLATELET COUNT 431 K/uL (130-400); RED BLOOD COUNT 4.72 M/uL (4.7-6.1); WHITE BLOOD COUNT 8.18 K/uL (4.8-10.8)
[2016-11-19 15:27] LABS: BASO % 0.4 %; BASO ABS # 0.03 K/uL (0-0.2); COMPLETE YES; EOS % 3.2 %; IG% 0.5 %; LYMPH % 22.6 %; LYMPH ABS # 1.85 K/uL (1.2-3.4); MONO % 7.3 %
[2016-11-19 15:29] LABS: ALT/SGPT 24 U/L (12-78); BLOOD UREA NITROGEN 10 mg/dl (7-18); CALCIUM 9.3 mg/dl (8.5-10.1); CARBON DIOXIDE 29 mmol/L (21-32); CHLORIDE 99 mmol/L (98-107); GLUCOSE 89 mg/dl (70-99); POTASSIUM 3.8 mmol/L (3.5-5.1); SODIUM 136 mmol/L (136-145)
[2016-11-19 15:31] LABS: ALB/GLOB RATIO 0.7 (0.9-2); ALKALINE PHOSPHATASE 79 U/L (45-117); AST/SGOT 12 U/L (15-37)
== END | disposition home or self-care (01) ==
LOC: C.LABSPEC 14:39
PROVIDERS: ATTEND Orthopaedic Surgery
DX: T81.4XXD Infection following a procedure, subsequent encounter (principal); B96.20 Unspecified Escherichia coli [E. coli] as the cause of diseases classified elsewhere; B95.62 Methicillin resistant Staphylococcus aureus infection as the cause of diseases classified elsewhere

== ENCOUNTER → 2016-11-26 | Outpatient (CLI) | payer OTHER ==
[2016-11-26 14:54] LABS: BASO % 0.6 %; BASO ABS # 0.04 K/uL (0-0.2); COMPLETE YES; EOS % 2.7 %; HEMATOCRIT 37.9 % (42-52); IG% 0.2 %; LYMPH % 26.6 %; LYMPH ABS # 1.76 K/uL (1.2-3.4); MEAN CORPUSCULAR HEMOGLOBIN 27.8 pg (25-34); MEAN CORPUSCULAR HGB CONC 34.3 g/dl (32-36); MEAN PLATELET VOLUME 8.8 fL (7.4-10.4); MONO % 7.7 %; NEUT % 62.2 %; PLATELET COUNT 270 K/uL (130-400); RED BLOOD COUNT 4.68 M/uL (4.7-6.1); WHITE BLOOD COUNT 6.62 K/uL (4.8-10.8)
[2016-11-26 15:11] LABS: ALB/GLOB RATIO 0.8 (0.9-2); ALKALINE PHOSPHATASE 83 U/L (45-117); ALT/SGPT 22 U/L (12-78); AST/SGOT 15 U/L (15-37); BLOOD UREA NITROGEN 13 mg/dl (7-18); BUN/CREATININE RATIO 10.7 (10-20); C-REACTIVE PROTEIN 1.74 mg/dl (0-0.29); CALCIUM 9.2 mg/dl (8.5-10.1); CARBON DIOXIDE 23 mmol/L (21-32); CHLORIDE 104 mmol/L (98-107); GLUCOSE 108 mg/dl (70-99); SODIUM 139 mmol/L (136-145)
== END | disposition home or self-care (01) ==
LOC: C.LABSPEC 12:40
PROVIDERS: ATTEND Orthopaedic Surgery
DX: T81.4XXD Infection following a procedure, subsequent encounter (principal); B95.62 Methicillin resistant Staphylococcus aureus infection as the cause of diseases classified elsewhere; B96.20 Unspecified Escherichia coli [E. coli] as the cause of diseases classified elsewhere

== ENCOUNTER → 2016-12-03 | Outpatient (CLI) | payer OTHER ==
[~2016-12-03] MED LIST changes: +OXYC-57 PO; +OXYC1TAB3 PO; +XRL20 PO; +[UNRECOGNIZED DRUG - CODE] SC
[2016-12-03 15:46] LABS: BASO % 0.3 %; BASO ABS # 0.02 K/uL (0-0.2); COMPLETE YES; EOS % 2.1 %; HEMATOCRIT 37.8 % (42-52); IG% 0.3 %; LYMPH % 23.1 %; LYMPH ABS # 1.33 K/uL (1.2-3.4); MEAN CELL VOLUME 78.9 fL (80-100); MEAN CORPUSCULAR HEMOGLOBIN 27.3 pg (25-34); MEAN CORPUSCULAR HGB CONC 34.7 g/dl (32-36); MEAN PLATELET VOLUME 8.6 fL (7.4-10.4); NEUT % 65.2 %; PLATELET COUNT 187 K/uL (130-400); RED BLOOD COUNT 4.79 M/uL (4.7-6.1); WHITE BLOOD COUNT 5.77 K/uL (4.8-10.8)
[2016-12-03 16:20] LABS: ALT/SGPT 21 U/L (12-78); BLOOD UREA NITROGEN 12 mg/dl (7-18); BUN/CREATININE RATIO 9.9 (10-20); C-REACTIVE PROTEIN 1.87 mg/dl (0-0.29); CARBON DIOXIDE 29 mmol/L (21-32); CHLORIDE 103 mmol/L (98-107); GLUCOSE 89 mg/dl (70-99); POTASSIUM 3.5 mmol/L (3.5-5.1); SODIUM 140 mmol/L (136-145)
[2016-12-03 16:23] LABS: ALB/GLOB RATIO 0.8 (0.9-2); ALKALINE PHOSPHATASE 90 U/L (45-117); AST/SGOT 14 U/L (15-37)
== END | disposition home or self-care (01) ==
LOC: C.LAB 12:15
PROVIDERS: ATTEND Orthopaedic Surgery
DX: T81.4XXD Infection following a procedure, subsequent encounter (principal); B95.62 Methicillin resistant Staphylococcus aureus infection as the cause of diseases classified elsewhere; B95.2 Enterococcus as the cause of diseases classified elsewhere; Y84.9 Medical procedure, unspecified as the cause of abnormal reaction of the patient, or of later complication, without mention of misadventure at the time of the procedure

== ENCOUNTER → 2016-12-06 | Day surgery (SDC) | payer OTHER ==
[~2016-12-06] VITALS: Ht 175.3 cm; Wt 115.0 kg
[~2016-12-06] MED LIST changes: +CEFTRIAXONE SOD INJ 2000 MG in DEXTROSE 5% 50ML IV SCH; -OXYC-57 PO; -OXYC1TAB3 PO; -XRL20 PO; -[UNRECOGNIZED DRUG - CODE] SC
[2016-12-06 13:30] VITALS: BP 143/77; PULSE 73; TEMP 37.2; O2SAT 97; Ht 175.3 cm; Wt 115.0 kg
== END | disposition home or self-care (01) ==
LOC: C.MTU 13:13
PROVIDERS: ATTEND Internal Medicine Infectious Disease
DX: T84.50XA Infection and inflammatory reaction due to unspecified internal joint prosthesis, initial encounter (principal); Y84.8 Other medical procedures as the cause of abnormal reaction of the patient, or of later complication, without mention of misadventure at the time of the procedure

== ENCOUNTER → 2016-12-10 | Outpatient (CLI) | payer OTHER ==
[~2016-12-10] MED LIST changes: -CEFTRIAXONE SOD INJ 2000 MG in DEXTROSE 5% 50ML IV SCH
[2016-12-10 12:39] LABS: BASO % 0.2 %; BASO ABS # 0.02 K/uL (0-0.2); COMPLETE YES; EOS % 1.2 %; HEMATOCRIT 41.4 % (42-52); IG% 0.2 %; LYMPH % 19.8 %; MEAN CELL VOLUME 79.8 fL (80-100); MEAN CORPUSCULAR HEMOGLOBIN 27.7 pg (25-34); MEAN CORPUSCULAR HGB CONC 34.8 g/dl (32-36); MEAN PLATELET VOLUME 9.1 fL (7.4-10.4); MONO % 9.9 %; NEUT % 68.7 %; PLATELET COUNT 178 K/uL (130-400); RED BLOOD COUNT 5.19 M/uL (4.7-6.1)
[2016-12-10 13:03] LABS: ALT/SGPT 20 U/L (12-78); BLOOD UREA NITROGEN 16 mg/dl (7-18); BUN/CREATININE RATIO 14.8 (10-20); C-REACTIVE PROTEIN 1.77 mg/dl (0-0.29); CALCIUM 9.6 mg/dl (8.5-10.1); CARBON DIOXIDE 24 mmol/L (21-32); CHLORIDE 102 mmol/L (98-107); GLUCOSE 98 mg/dl (70-99); POTASSIUM 4.1 mmol/L (3.5-5.1); SODIUM 135 mmol/L (136-145)
[2016-12-10 13:06] LABS: ALB/GLOB RATIO 0.9 (0.9-2); ALKALINE PHOSPHATASE 96 U/L (45-117); AST/SGOT 14 U/L (15-37)
--- NOTE | 2016-12-12 09:32 | CODING QUERY NO DIAGNOSIS ---
Valid Physician Order Needed A valid physician order must be submitted in order to properly bill for the service(s) provided, including date of service(s), valid diagnosis, and physician signature. If these tests are done on a recurring basis the original physican order must be submitted in order to code and bill for the service(s) provided. Please fax us the original, signed physician order so that we may expedite billing to [phone] DOS 12/10/16 * CBC, ESR, CMP, CPK, CRP ORDERED BY DR. CHANG JO Thank you [facility] Information Management
== END | disposition home or self-care (01) ==
LOC: C.LAB 14:36
PROVIDERS: ATTEND Orthopaedic Surgery
DX: A49.01 Methicillin susceptible Staphylococcus aureus infection, unspecified site (principal); Z51.81 Encounter for therapeutic drug level monitoring; Z79.2 Long term (current) use of antibiotics

== ENCOUNTER 2016-12-11 09:57 | Inpatient (IN) | payer OTHER ==
[~2016-12-11] VITALS: Ht 175.3 cm; Wt 109.3 kg
[~2016-12-11 09:57] MED LIST changes: -DOXY100C76 PO; -MORP1TAB11 PO; +TOBRSUS OPB; -XRL10 PO
[2016-12-11] MEDS ORDERED: MoRPHine SULFATE 10 MG/ML CARP/VIAL IV STA (10:15)
[2016-12-11] MEDS ORDERED: ONDANSETRON INJ 2 MG/ML 2 ML VIAL IV STA (10:15)
[2016-12-11] MEDS ORDERED: MORP1TAB11 PO ×2 (10:23)
[2016-12-11 10:31] LABS: BASO % 0.3 %; BASO ABS # 0.02 K/uL (0-0.2); COMPLETE YES; EOS % 2.4 %; HEMATOCRIT 40.8 % (42-52); IG% 0.3 %; LYMPH % 17.7 %; LYMPH ABS # 1.38 K/uL (1.2-3.4); MEAN CELL VOLUME 80.6 fL (80-100); MEAN CORPUSCULAR HEMOGLOBIN 27.9 pg (25-34); MEAN CORPUSCULAR HGB CONC 34.6 g/dl (32-36); MEAN PLATELET VOLUME 9.1 fL (7.4-10.4); MONO % 11.5 %; NEUT % 67.8 %; PLATELET COUNT 171 K/uL (130-400); RED BLOOD COUNT 5.06 M/uL (4.7-6.1); WHITE BLOOD COUNT 7.81 K/uL (4.8-10.8)
--- NOTE | 2016-12-11 10:37 | DIAGNOSTIC IMAGING REPORT ---
CHEST ONE VIEW PORTABLE CLINICAL HISTORY: sob/left cp eval for pt dyspnea COMPARISON STUDY: 11/04/2016 FINDINGS: PICC catheter in superior vena cava. No evidence pneumothorax. Minimal basilar parenchymal infiltrative change. Upper lungs are clear. IMPRESSION: 1. PICC catheter place in superior vena cava. 2. No evidence pneumothorax. 3. Minimal bibasilar parenchymal infiltrative/atelectatic change Electronically signed by: Ifeanyi Bueno M.D. 12/11/2016 10:36 AM Dictated Date/Time: 12/11/2016 10:35 AM
[2016-12-11 10:38] LABS: BUN/CREATININE RATIO 12.4 (10-20); CALCIUM 9.1 mg/dl (8.5-10.1); CREATININE 1.1 mg/dl (0.60-1.40); PARTIAL THROMBOPLASTIN RATIO 1.1; POTASSIUM 4.2 mmol/L (3.5-5.1); PROTHROMBIN TIME (PATIENT) 10.4 SECONDS (9.0-12.0)
[2016-12-11] MEDS ORDERED: OPTIRAY 320 IV PRN (11:15)
--- NOTE | 2016-12-11 11:20 | DIAGNOSTIC IMAGING REPORT ---
CT ANGIOGRAM OF THE CHEST CLINICAL HISTORY: Atypical chest pain. COMPARISON STUDY: Chest x-ray dated 12/11/2016. TECHNIQUE: Following the IV administration of 92 cc of Optiray 320, CT angiogram of the chest was performed from the upper abdomen to the thoracic inlet utilizing the pulmonary embolus protocol. Images are reviewed in the axial, sagittal, and coronal planes. 3-D MIPS images are created and assessed. IV contrast was administered without complication. CT DOSE: 486.26 mGy.cm FINDINGS: Thyroid: Imaged portions of the thyroid gland are normal in size and attenuation. Thoracic aorta: The thoracic aorta is normal in caliber and demonstrates standard 3-vessel arch anatomy. No dissection is seen. Pulmonary vasculature: The main pulmonary arteries are dilated suggesting pulmonary artery hypertension. There is pulmonary embolus within the distal left main pulmonary artery. This extends into the left upper and left lobar pulmonary arteries extending into segmental and subsegmental branches. There is pulmonary embolus seen within the distal right lower lobar pulmonary artery which extends into segmental and subsegmental branches. Heart: The heart is enlarged, and without pericardial effusion. A right PICC line is in place. Lungs and pleural spaces: Evaluation of the lung parenchyma is degraded by respiratory motion artifact. There are small left and trace right pleural effusions. Consolidation is present at the left lung base. There is mild right basilar atelectasis. The trachea and central airways are clear. Mediastinum: Scattered subcentimeter mediastinal lymph nodes are not pathologically enlarged by size criteria. Ailyn: Clear. Axillae: There is no axillary lymphadenopathy. Upper abdomen: There is evidence of hepatic steatosis. A tiny hiatal hernia is identified. Skeletal structures: No lytic or blastic bony lesions are seen. Degenerative change is noted throughout the thoracic spine. Soft tissues: Bilateral nipple piercings are noted. IMPRESSION: 1. Bilateral pulmonary emboli as above, left greater than right. 2. Small left and trace right pleural effusions with left basilar airspace consolidation. Given the presence of left lower lobe pulmonary embolus this likely represents pulmonary infarct. Correlate clinically for evidence of an infectious/inflammatory pneumonitis. 3. Cardiomegaly. 4. Hepatic steatosis. 5. Additional findings as above. Electronically signed by: Home Bacon M.D. 12/11/2016 11:19 AM Dictated Date/Time: 12/11/2016 11:13 AM
[2016-12-11] MEDS ORDERED: MoRPHine SULFATE 4 MG/ML 1 ML CARP\\VIAL IV STA (11:25)
[2016-12-11] MEDS ORDERED: HEPARIN SOD (PORCINE) 1000 UNIT/ML 10 ML VIAL ONE (11:42)
[2016-12-11] MEDS ORDERED: HEPARIN 25000 UNIT/500 ML D5W ONE (11:42)
[2016-12-11] MEDS ORDERED: HYDROmorphone INJ 2 MG/ML SYR/VIAL IV STA (13:24)
[2016-12-11] MEDS ORDERED: HYDROmorphone INJ 1 MG/ML SYR ONE (13:25)
[2016-12-11] MEDS ORDERED: HYDROmorphone INJ 2 MG/ML SYR/VIAL ONE ×2 (13:25→15:38)
[2016-12-11] MEDS ORDERED: HYDROmorphone INJ 2 MG/ML SYR/VIAL IV PRN (13:30)
[2016-12-11] MEDS ORDERED: LORAZEPAM 1 MG TAB PO PRN (13:45)
[2016-12-11] MEDS ORDERED: CONSULT PHARMACY STA (13:45)
[2016-12-11] MEDS ORDERED: DAPTOmycin 500 MG VIAL IV SCH (13:45)
[2016-12-11] MEDS ORDERED: IV FLUIDS COMPLETED PRN (13:45)
[2016-12-11 15:10] VITALS: BP 129/75; PULSE 67; TEMP 36.4; O2SAT 97; Ht 175.3 cm; Wt 109.3 kg
[2016-12-11] MEDS ORDERED: HYDROmorphone HCL 2 MG TAB ONE (16:03)
[2016-12-11] MEDS: HYDROmorphone HCL 2 MG TAB PO SCH ×3 (16:15→23:24)
[2016-12-11] MEDS ORDERED: ARIPIprazole 1 MG/ML ORAL SOLN 150 ML BTL PO PRN (16:15)
--- NOTE | 2016-12-11 16:36 | EMERGENCY ROOM VISIT NOTE ---
History Report prepared by Suzy: Sienna Howard Under the Supervision of: Dr. Neville Quinteros M.D. 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 He describes the pain as sharp. His pain worsens when he breathes. Initially, he developed some left lower quadrant abdominal pain 2 days ago. The pain eventually moved to his left flank and now is underneath the left breast. The patient's highest temperature was 99.2 at home. He also currently complains of a mild headache. The patient had a partial left knee replacement on October 12 of this year which got infected. The wound was subsequently cleaned out and necrotic tissue was removed. His cultures on November 04 were positive for MRSA and E. Coli. He was put on IV antibiotics at that time. He has been seeing [facility] 3x a week for the past month and had a wound vac removed yesterday. The patient still complains of some left knee pain and swelling, although his notes that the swelling in his leg is much improved. The patient was initially on 4 weeks of IV Levaquin and started on Rocephin last week. The patient has a history of 2 DVTs. His 1st DVT was after a surgery but the cause of his 2nd DVT was unknown. He was on Xarelto but was taken off of it on November 04. He has not been on a blood thinner since then. Denies cough, vomiting, or other complaints. Source of History: patient, spouse/significant other Onset: ENVIRONMENTAL HEALTH TECHNOLOGIST Position: chest (left lower) Quality: sharp Timing: worsening Associated Symptoms: + headache, No cough, No vomiting Note: Other symptoms: left knee pain & swelling Review of Systems See HPI for pertinent positives & negatives. A total of 10 systems reviewed and were otherwise negative. Past Medical & Surgical Medical Problems: (1) Chest pain (2) Osteoarthritis of knee (3) Postoperative wound infection (4) Pulmonary embolus and infarction Family History Cancer Diabetes mellitus Social History Smoking Status: Former Smoker Alcohol Use: occasionally Drug Use: none Marital Status: Occupation Status: employed Current/Historical Medications Scheduled Amphetamine-Dextroamphetamine 20MG (Adderall 20MG), 30 MG PO BID Aripiprazole (Abilify), 2-4 MG PO DAILY Ceftriaxone Sod (Rocephin), 1 GM IV DAILY Daptomycin (Cubicin), IV QD Duloxetine Hcl (Cymbalta), 30 MG PO DAILY Fluconazole (Diflucan), 1 TAB PO DAILY Sxoqfwvebgv-Sjlcaqgenuf-Ykx C- (Glucosamine Chondroitin), 2 CAP PO QAM Hydromorphone Hcl (Dilaudid), 4 MG PO Q4 Lamotrigine (Lamotrigine), 100 MG PO QAM Morphine Sulfate (Morphine Sulfate Er), 15 MG PO Q12 Multivitamin (Multivitamin), 1 TAB PO QAM Rifampin (Rifampin), 300 MG PO BID Scheduled PRN Lorazepam (Ativan), 1 MG PO HS PRN for Anxiety Allergies Coded Allergies: Bupropion (Unverified Allergy, Intermediate, HIVES, 12/11/16) SWELLING OF FACE AND LIPS Physical Exam Vital Signs Date Time Temp Pulse Resp B/P Pulse Ox O2 Delivery O2 Flow Rate FiO2 12/11/16 12:16 82 18 110/76 96 Nasal Cannula 2.0 12/11/16 10:57 95 Nasal Cannula 2.0 12/11/16 10:55 78 20 111/66 95 Room Air 12/11/16 10:16 96 Room Air 12/11/16 10:15 73 12/11/16 10:02 37.3 71 20 134/81 98 Room Air Physical Exam Constitutional: Vital signs reviewed. Eyes: Pupils are equal round reactive to light. Conjunctiva are noninjected. ENT: Pharynx is clear without erythema or exudate. Mucous membranes are moist. Neck supple without meningeal signs. Respiratory: Clear to auscultation bilaterally. Breath sounds are equal bilaterally. Cardiovascular: Regular rate and rhythm. No rubs or gallops. GI: Soft, nondistended and nontender. Bowel sounds are present. Musculoskeletal: Left knee bandaged. No distal swelling in the ankles. Integumentary: No cyanosis. Neurological: The patient is awake and alert. No focal deficits. Psychiatric: Normal affect. Medical Decision & Procedures ER Provider Diagnostic Interpretation: Radiology results as stated below per my review and the radiologist's interpretation: CHEST ONE VIEW PORTABLE CLINICAL HISTORY: sob/left cp eval for pt dyspnea COMPARISON STUDY: 11/04/2016 FINDINGS: PICC catheter in superior vena cava. No evidence pneumothorax. Minimal basilar parenchymal infiltrative change. Upper lungs are clear. IMPRESSION: 1. PICC catheter place in superior vena cava. 2. No evidence pneumothorax. 3. Minimal bibasilar parenchymal infiltrative/atelectatic change Electronically signed by: Ifeanyi Bueno M.D. 12/11/2016 10:36 AM Dictated Date/Time: 12/11/2016 10:[address] ANGIOGRAM OF THE CHEST CLINICAL HISTORY: Atypical chest pain. COMPARISON STUDY: Chest x-ray dated 12/11/2016. TECHNIQUE: Following the IV administration of 92 cc of Optiray 320, CT angiogram of the chest was performed from the upper abdomen to the thoracic inlet utilizing the pulmonary embolus protocol. Images are reviewed in the axial, sagittal, and coronal planes. 3-D MIPS images are created and assessed. IV contrast was administered without complication. CT DOSE: 486.26 mGy.cm FINDINGS: Thyroid: Imaged portions of the thyroid gland are normal in size and attenuation. Thoracic aorta: The thoracic aorta is normal in caliber and demonstrates standard 3-vessel arch anatomy. No dissection is seen. Pulmonary vasculature: The main pulmonary arteries are dilated suggesting pulmonary artery hypertension. There is pulmonary embolus within the distal left main pulmonary artery. This extends into the left upper and left lobar pulmonary arteries extending into segmental and subsegmental branches. There is pulmonary embolus seen within the distal right lower lobar pulmonary artery which extends into segmental and subsegmental branches. Heart: The heart is enlarged, and without pericardial effusion. A right PICC line is in place. Lungs and pleural spaces: Evaluation of the lung parenchyma is degraded by respiratory motion artifact. There are small left and trace right pleural effusions. Consolidation is present at the left lung base. There is mild right basilar atelectasis. The trachea and central airways are clear. Mediastinum: Scattered subcentimeter mediastinal lymph nodes are not pathologically enlarged by size criteria. Ailyn: Clear. Axillae: There is no axillary lymphadenopathy. Upper abdomen: There is evidence of hepatic steatosis. A tiny hiatal hernia is identified. Skeletal structures: No lytic or blastic bony lesions are seen. Degenerative change is noted throughout the thoracic spine. Soft tissues: Bilateral nipple piercings are noted. IMPRESSION: 1. Bilateral pulmonary emboli as above, left greater than right. 2. Small left and trace right pleural effusions with left basilar airspace consolidation. Given the presence of left lower lobe pulmonary embolus this likely represents pulmonary infarct. Correlate clinically for evidence of an infectious/inflammatory pneumonitis. 3. Cardiomegaly. 4. Hepatic steatosis. 5. Additional findings as above. Electronically signed by: Home Bacon M.D. 12/11/2016 11:19 AM Dictated Date/Time: 12/11/2016 11:13 AM Laboratory Results 12/11/16 10:10 Red Blood Count 5.06, Mean Corpuscular Volume 80.6, Mean Corpuscular Hemoglobin 27.9, Mean Corpuscular Hemoglobin Concent 34.6, Mean Platelet Volume 9.1, Neutrophils (%) (Auto) 67.8, Lymphocytes (%) (Auto) 17.7, Monocytes (%) (Auto) 11.5, Eosinophils (%) (Auto) 2.4, Basophils (%) (Auto) 0.3, Neutrophils # (Auto ) 5.30, Lymphocytes # (Auto) 1.38, Monocytes # (Auto) 0.90, Eosinophils # (Auto ) 0.19, Basophils # (Auto) 0.02 12/11/16 10:10 Test 12/11/16 10:10 12/11/16 10:33 White Blood Count 7.81 K/uL (4.8-10.8) Red Blood Count 5.06 M/uL (4.7-6.1) Hemoglobin 14.1 g/dL (14.0-18.0) Hematocrit 40.8 % (42-52) Mean Corpuscular Volume 80.6 fL (80-100) Mean Corpuscular Hemoglobin 27.9 pg (25-34) Mean Corpuscular Hemoglobin Concent 34.6 g/dl (32-36) Platelet Count 171 K/uL (130-400) Mean Platelet Volume 9.1 fL (7.4-10.4) Neutrophils (%) (Auto) 67.8 % Lymphocytes (%) (Auto) 17.7 % Monocytes (%) (Auto) 11.5 % Eosinophils (%) (Auto) 2.4 % Basophils (%) (Auto) 0.3 % Neutrophils # (Auto) 5.30 K/uL (1.4-6.5) Lymphocytes # (Auto) 1.38 K/uL (1.2-3.4) Monocytes # (Auto) 0.90 K/uL (0.11-0.59) Eosinophils # (Auto) 0.19 K/uL (0-0.5) Basophils # (Auto) 0.02 K/uL (0-0.2) RDW Standard Deviation 46.7 fL (36.4-46.3) RDW Coefficient of Variation 15.9 % (11.5-14.5) Immature Granulocyte % (Auto) 0.3 % Immature Granulocyte # (Auto) 0.02 K/uL (0.00-0.02) Prothrombin Time 10.4 SECONDS (9.0-12.0) Prothromb Time International Ratio 1.0 (0.9-1.1) Activated Partial Thromboplast Time 28.9 SECONDS (21.0-31.0) Partial Thromboplastin Ratio 1.1 Anion Gap 9.0 mmol/L (3-11) Est Creatinine Clear Calc Drug Dose 105.5 ml/min Estimated GFR () 94.8 Estimated GFR (Non- 81.8 BUN/Creatinine Ratio 12.4 (10-20) Calcium Level 9.1 mg/dl (8.5-10.1) Bedside Troponin I 0.000 ng/ml (0-0.045) Laboratory results as reviewed by me. Medications Administered Medications (Trade) Dose Ordered Sig/Pj Route Start Time Stop Time Status Last Admin Dose Admin Morphine Sulfate (MoRPHine SULFATE INJ) 6 mg NOW STAT IV 12/11/16 10:15 12/11/16 10:18 DC 12/11/16 10:55 6 MG Ondansetron HCl (Zofran Inj) 4 mg NOW STAT IV 12/11/16 10:15 12/11/16 10:18 DC 12/11/16 10:54 4 MG Morphine Sulfate (MoRPHine SULFATE INJ) 4 mg NOW STAT IV 12/11/16 11:25 12/11/16 11:27 DC 12/11/16 11:48 4 MG Heparin Sodium/ Dextrose (Heparin 25,000 Unit/500ml D5W) 25,000 unit STK-MED ONCE .ROUTE 12/11/16 11:42 12/11/16 11:45 DC 12/11/16 11:59 25,000 UNIT Heparin Sodium (Porcine) (Heparin Iv Bolus) 10,000 unit STK-MED ONCE .ROUTE 12/11/16 11:42 12/11/16 11:45 DC 12/11/16 11:56 10,000 UNIT ECG Indication: chest pain Rate (beats per minute): 71 Rhythm: normal sinus Findings: no acute ischemic change, no ectopy ED Course 1005: The patient was evaluated in room A3. A complete history and physical exam was performed. 1015: Ordered Zofran Inj 4 mg IV, Morphine Sulfate 6 mg IV. 1048: I reassessed the patient. His chest pain was better. He is waiting for CT scan. 1125: I discussed the CT scan results with him and the need for heparin and hospitalization. He agreed with the plan. Ordered Heparin Sodium/Dextrose 1 ea, Morphine Sulfate 4 mg IV. 1137: I discussed the case with Connie, calling for Dr. Alcocer [facility] Hospitalist. The patient will be evaluated for further management. 1210: I reassessed the patient. The heparin is infusing. He feels better overall. 1230: Ordered Heparin Sodium/Dextrose 500 ml @ 21 mls/hr IV. Medical Decision This is a 41-year-old male who presents with chest pain and shortness of breath. Differential diagnosis includes pulmonary embolism, DVT, pulmonary infarct, pneumonia, pleurisy, pericarditis. I did perform a limited focused review of portions of the patient's old chart on the electronic medical record. He was seen by wound care yesterday after he had an incision and drainage of an abscess to the left knee. He is on antibiotics per Dr. Cabezas. He had MRSA and E. coli from his wound cultures. He has a prior history of DVT. I did evaluate the patient as noted above. The patient is presenting with chest pain and shortness of breath. He does have a known history of prior DVT and was taken off of his Xarelto due to infection to his left knee. IV access was established. The patient was placed on a continuous shelter monitor. I did treat the patient with IV morphine and Zofran. I did order and personally review the patient's 12-lead EKG and chest x-ray as described above. I did order and review the patient's blood work as noted in the electronic medical record. I did order a CT of the chest. I did review the images myself as well as the radiology report as described above. The patient has multiple bilateral pulmonary emboli with a likely pulmonary infarction on the left side. I did discuss the test results with the patient and his . I did start patient on IV heparin drip with a bolus. I did discuss the case with the hospitalist and caser up. He was given additional IV morphine for pain. Consults Time Called: 1130 Consulting Physician: Connie, calling for Dr. Carlyn Arnett [facility] Hospitalist Returned Call: [phone] I discussed the case with her. The patient will be evaluated for further management. Impression Primary Impression: Pulmonary infarct Additional Impression: Bilateral pulmonary embolism Critical Care I have personally spent 35 minutes of critical care time in the direct management of this patient. This includes bedside care, interpretation of diagnostic studies, and testing, discussion with consultants, patient, and family members, and other required patient management activities. This 35 minutes is in excess of all separately billable procedures. Scribe Attestation The scribe's documentation has been prepared under my direct and personally reviewed by me in its entirety. I confirm that the note above accurately reflects all work, treatment, procedures, and medical decision making performed by me. Departure Information Dispostion Being Evaluated By Hospitalist Referrals Edwin Ornelas D.O.Int.Med. (PCP) Patient Instructions My [facility] Problem Qualifiers
[2016-12-11] MEDS ORDERED: NURSING VERBAL MED ORDER ONE (16:45)
[2016-12-11] MEDS ORDERED: HYDROmorphone INJ 2 MG/ML SYR/VIAL IV ONE (16:45)
[2016-12-11 19:27] VITALS: BP 145/87; PULSE 85; TEMP 36.5; O2SAT 95
--- NOTE | 2016-12-11 19:49 | History and Physical ---
History & Physical Date & Time of Service: Dec 11, 2016 at 19:31 Chief Complaint: Pulmonary Embolus And Infarction Primary Care Physician: Edwin Ornelas D.O.Int.Med. History of Present Illness Source: patient, spouse The patient is a 41 y.o with a history of DVT who underwent a partial knee replacement on Oct 12 of this year. He was restarted on his Xaralto shortly after the procedure, and had bleeding complications which required his blood thinner to be stopped. He than developed a complicated wound infection which is being followed in the wound clinic and was positive for MRSA and Ecoli. He developed pleuritic pain over the last 24 hours, that originally started as abdominal pain and than advanced to chest discomfort with inspiration, that advanced to a point of forcing him to come to the ED. 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 CT reveals PE with pulmonary htn. He will be admitted for iv heparin tx. Family History Cancer Diabetes mellitus Social History Smoking Status: Former Smoker Drug Use: none Marital Status: Occupational Status: employed Immunizations History of Influenza Vaccine: No History of Tetanus Vaccine?: Yes Tetanus Immunization Date: Aug 20, 2011 History of Pneumococcal: No History of Hepatitis B Vaccine: Yes Multi-Drug Resistant Organisms History of MDRO: Yes Type of MDRO: MRSA Allergies Coded Allergies: Bupropion (Unverified Allergy, Intermediate, HIVES, 12/11/16) SWELLING OF FACE AND LIPS Home Medications Scheduled Amphetamine-Dextroamphetamine 20MG (Adderall 20MG), 30 MG PO BID Aripiprazole (Abilify), 2-4 MG PO DAILY Ceftriaxone Sod (Rocephin), 1 GM IV DAILY Daptomycin (Cubicin), IV QD Duloxetine Hcl (Cymbalta), 30 MG PO DAILY Fluconazole (Diflucan), 1 TAB PO DAILY Fcrifwzlzan-Jhaflgobmjm-Ljj C- (Glucosamine Chondroitin), 2 CAP PO QAM Hydromorphone Hcl (Dilaudid), 4 MG PO Q4 Lamotrigine (Lamotrigine), 100 MG PO QAM Morphine Sulfate (Morphine Sulfate Er), 15 MG PO Q12 Multivitamin (Multivitamin), 1 TAB PO QAM Rifampin (Rifampin), 300 MG PO BID Scheduled PRN Lorazepam (Ativan), 1 MG PO HS PRN for Anxiety Review of Systems Respiratory: + shortness of breath Cardiovascular: + chest pain (pleuritic) Physical Exam Vital Signs Date Time Temp Pulse Resp B/P Pulse Ox O2 Delivery O2 Flow Rate FiO2 12/11/16 19:27 36.5 85 18 145/87 95 Nasal Cannula 3.0 12/11/16 15:10 36.4 67 21 129/75 12/11/16 15:10 97 Nasal Cannula 2.0 12/11/16 14:43 71 20 115/78 95 12/11/16 13:32 82 12/11/16 13:26 79 16 118/72 96 Nasal Cannula 2.0 12/11/16 12:16 82 18 110/76 96 Nasal Cannula 2.0 12/11/16 10:57 95 Nasal Cannula 2.0 12/11/16 10:55 78 20 111/66 95 Room Air 12/11/16 10:16 96 Room Air 12/11/16 10:15 73 12/11/16 10:02 37.3 71 20 134/81 98 Room Air General Appearance: WD/WN, no apparent distress Head: normocephalic, atraumatic Eyes: normal inspection, sclerae normal ENT: hearing grossly normal Neck: supple Respiratory/Chest: chest non-tender, lungs clear, no respiratory distress Cardiovascular: regular rate, rhythm Abdomen/GI: normal bowel sounds Back: normal inspection Skin: normal color Diagnostics Laboratory Results Results Past 24 Hours Test 12/11/16 10:10 12/11/16 10:33 Range/Units White Blood Count 7.81 4.8-10.8 K/uL Red Blood Count 5.06 4.7-6.1 M/uL Hemoglobin 14.1 14.0-18.0 g/dL Hematocrit 40.8 42-52 % Mean Corpuscular Volume 80.6 80-100 fL Mean Corpuscular Hemoglobin 27.9 25-34 pg Mean Corpuscular Hemoglobin Concent 34.6 32-36 g/dl Platelet Count 171 130-400 K/uL Mean Platelet Volume 9.1 7.4-10.4 fL Neutrophils (%) (Auto) 67.8 % Lymphocytes (%) (Auto) 17.7 % Monocytes (%) (Auto) 11.5 % Eosinophils (%) (Auto) 2.4 % Basophils (%) (Auto) 0.3 % Neutrophils # (Auto) 5.30 1.4-6.5 K/uL Lymphocytes # (Auto) 1.38 1.2-3.4 K/uL Monocytes # (Auto) 0.90 0.11-0.59 K/uL Eosinophils # (Auto) 0.19 0-0.5 K/uL Basophils # (Auto) 0.02 0-0.2 K/uL RDW Standard Deviation 46.7 36.4-46.3 fL RDW Coefficient of Variation 15.9 11.5-14.5 % Immature Granulocyte % (Auto) 0.3 % Immature Granulocyte # (Auto) 0.02 0.00-0.02 K/uL Prothrombin Time 10.4 9.0-12.0 SECONDS Prothromb Time International Ratio 1.0 0.9-1.1 Activated Partial Thromboplast Time 28.9 21.0-31.0 SECONDS Partial Thromboplastin Ratio 1.1 Sodium Level 137 136-145 mmol/L Potassium Level 4.2 3.5-5.1 mmol/L Chloride Level 102 98-107 mmol/L Carbon Dioxide Level 26 21-32 mmol/L Anion Gap 9.0 3-11 mmol/L Blood Urea Nitrogen 14 7-18 mg/dl Creatinine 1.10 0.60-1.40 mg/dl Est Creatinine Clear Calc Drug Dose 105.5 ml/min Estimated GFR () 94.8 Estimated GFR (Non- 81.8 BUN/Creatinine Ratio 12.4 10-20 Random Glucose 110 70-99 mg/dl Calcium Level 9.1 8.5-10.1 mg/dl Bedside Troponin I 0.000 0-0.045 ng/ml Diagnostic Radiology CT ANGIOGRAM OF THE CHEST CLINICAL HISTORY: Atypical chest pain. COMPARISON STUDY: Chest x-ray dated 12/11/2016. TECHNIQUE: Following the IV administration of 92 cc of Optiray 320, CT angiogram of the chest was performed from the upper abdomen to the thoracic inlet utilizing the pulmonary embolus protocol. Images are reviewed in the axial, sagittal, and coronal planes. 3-D MIPS images are created and assessed. IV contrast was administered without complication. CT DOSE: 486.26 mGy.cm FINDINGS: Thyroid: Imaged portions of the thyroid gland are normal in size and attenuation. Thoracic aorta: The thoracic aorta is normal in caliber and demonstrates standard 3-vessel arch anatomy. No dissection is seen. Pulmonary vasculature: The main pulmonary arteries are dilated suggesting pulmonary artery hypertension. There is pulmonary embolus within the distal left main pulmonary artery. This extends into the left upper and left lobar pulmonary arteries extending into segmental and subsegmental branches. There is pulmonary embolus seen within the distal right lower lobar pulmonary artery which extends into segmental and subsegmental branches. Heart: The heart is enlarged, and without pericardial effusion. A right PICC line is in place. Lungs and pleural spaces: Evaluation of the lung parenchyma is degraded by respiratory motion artifact. There are small left and trace right pleural effusions. Consolidation is present at the left lung base. There is mild right basilar atelectasis. The trachea and central airways are clear. Mediastinum: Scattered subcentimeter mediastinal lymph nodes are not pathologically enlarged by size criteria. Ailyn: Clear. Axillae: There is no axillary lymphadenopathy. Upper abdomen: There is evidence of hepatic steatosis. A tiny hiatal hernia is identified. Skeletal structures: No lytic or blastic bony lesions are seen. Degenerative change is noted throughout the thoracic spine. Soft tissues: Bilateral nipple piercings are noted. IMPRESSION: 1. Bilateral pulmonary emboli as above, left greater than right. 2. Small left and trace right pleural effusions with left basilar airspace consolidation. Given the presence of left lower lobe pulmonary embolus this likely represents pulmonary infarct. Correlate clinically for evidence of an infectious/inflammatory pneumonitis. 3. Cardiomegaly. 4. Hepatic steatosis. 5. Additional findings as above. Electronically signed by: Home Bacon M.D. 12/11/2016 11:19 AM Impression Assessment and Plan 41 y.o with Acute PE will be admitted for iv heparin and further testing. 1. Acute PE will place on IV heparin per protocol. I will ask Dr. Ornelas to see. I anticipate he will most likely end up back on Xarelto. He did not do well on coumadin. Historically he will require blood thinner for life. Patient and his are requesting further testing to determine real cause of his hypercoagulable state. Testing can be done as outpatient. 2. History of Knee infection receiving active therapy. I will ask the doctors treating him as an outpatient to make recommendations. 3. History of chronic pain will continue dilaudid and his chronic narcotics. 4. Code full Advanced Directives Existing Living Will: No Existing Power of Sustainability Engineer: No VTE Prophylaxis VTE Risk Assessment Done? Y/N: Yes Risk Level: High
[2016-12-11] MEDS: HYDROmorphone INJ 2 MG/ML SYR/VIAL IV PRN ×2 (19:52→22:08)
[2016-12-11] MEDS: RIFAMPIN 300 MG CAP PO SCH (21:23)
[2016-12-11] MEDS: MoRPHine SULFATE CR 15 MG TAB (MS CONTIN) PO SCH (21:23)
[2016-12-11] MEDS: DAPTOMYCIN IV 500 MG in NSS 50ML IV SCH (21:24)
[2016-12-11] MEDS: CEFTRIAXONE SOD INJ 1000 MG in DEXTROSE 5% 50ML IV SCH (21:24)
--- NOTE | 2016-12-11 21:32 | DIAGNOSTIC IMAGING REPORT ---
BILATERAL LOWER EXTREMITY VENOUS DOPPLER HISTORY: Pulmonary emboli. COMPARISON STUDY: Left leg venous Doppler 10/19/2016. FINDINGS: Linear echogenic stranding seen within the right popliteal and right posterior tibial veins consistent with chronic nonocclusive thrombus. There is occlusive thrombus seen within the left superficial femoral vein and nonocclusive thrombus within the left peroneal veins. Remaining bilateral lower extremity venous structures are patent. IMPRESSION: 1. Acute DVT within the left lower extremity as described above. 2. Nonocclusive chronic DVT within the right lower extremity as described above. Electronically signed by: Vick Whitt M.D. 12/11/2016 9:30 PM Dictated Date/Time: 12/11/2016 9:29 PM
[2016-12-11 22:41] LABS: PARTIAL THROMBOPLASTIN RATIO 1.2
[2016-12-11] MEDS ORDERED: HEPARIN IV BOLUS 7,000 UNIT in SYRINGE 0 ML IV STA (23:09)
--- NOTE | 2016-12-11 23:10 | ORTHOPEDIC CONSULTATION ---
DATE OF CONSULTATION: 12/11/2016 CHIEF COMPLAINT: 1. Bilateral pulmonary embolisms. 2. Eight weeks status post left unicompartmental knee arthroplasty and 5 weeks status post I\T\D of a wound infection. HISTORY OF PRESENT ILLNESS: Benigno is a very pleasant 41-year-old male who initially presented to my office with medial compartmental arthritis of his knee. After failing extensive conservative treatment including years of injections and therapy, he elected to undergo a partial knee replacement. On 10/12/2016, he underwent a partial knee replacement without complication. About 2 weeks after the procedure, he began having dehiscence of his wound and there was significant ecchymosis around the leg and bleeding from the wound site. I did get an ultrasound of his lower extremity which was negative for DVT. He was started back on Xarelto 20 postoperatively. Unfortunately, the wound then became infected and he underwent an I\T\D on 11/04/2016. After the I\T\D, because of the amount of bleeding around his leg and from the incision site I decided to stop his Xarelto. He was on Xarelto for history of DVTs in the past but ultrasound showed no evidence of DVT, so I was waiting to get the wound under control first. He has been following up with infectious disease as well as wound clinic. Fortunately, his wound has been improving. His knee has also been improving, the swelling has been decreasing, he has been regaining his range of motion. Unfortunately, last evening he began having some chest pains and shortness of breath. He came to the Emergency Room and CT scan showed bilateral pulmonary embolisms. He has been admitted to the medical service, started on heparin. PHYSICAL EXAMINATION: LEFT KNEE: The incision appears to be healing nicely. There is 1 small area with continued purulent drainage, but there is no evidence of any abscesses. The swelling in his knee has decreased significantly. He has active dorsiflexion and plantarflexion of his ankle. IMPRESSION: 1. Eight weeks status post left unicompartmental knee arthroplasty and 5 weeks status post incision and drainage of wound infection. 2. Bilateral pulmonary embolus. PLAN: I did speak with the hospitalist personally. He can continue with the heparin and he can be started back on Xarelto 20 mg if that is what is felt is his best treatment option. He can be up and ambulating as tolerated throughout his hospital stay. He is currently scheduled to follow up with me in the office in about a week and a half and he can keep that appointment. I will follow him throughout his stay here.
[2016-12-12] VITALS (11 sets, daily range): BP systolic 125–158; BP diastolic 74–98; PULSE 65–85; TEMP 36.5–37.1; O2SAT 92–100
[2016-12-12] MEDS: HEPARIN 25,000 UNIT/500ML D5W 500 ML IV PRN ×3 (00:03→14:06)
--- NOTE | 2016-12-12 00:04 | Progress Note ---
Progress Note Date of Service Dec 12, 2016. Progress Note resident reservations agent coverage note is an occupational therapist, Cesia, encoraged us to get a DVT US, which we did showing clots called to explain multipel questions answered
[2016-12-12] MEDS: HYDROmorphone INJ 2 MG/ML SYR/VIAL IV PRN ×7 (00:14→22:00)
[2016-12-12] MEDS: HYDROmorphone HCL 2 MG TAB PO SCH ×5 (04:09→20:17)
[2016-12-12 05:19] LABS: PARTIAL THROMBOPLASTIN RATIO 1.6
[2016-12-12 05:28] LABS: ALKALINE PHOSPHATASE 82 U/L (45-117); ALT/SGPT 19 U/L (12-78); AST/SGOT 10 U/L (15-37)
[2016-12-12] MEDS ORDERED: HEPARIN IV BOLUS 3,000 UNIT in SYRINGE 0 ML IV STA (05:32)
--- NOTE | 2016-12-12 07:48 | PULMONARY CONSULTATION ---
DATE OF CONSULTATION: 12/12/2016 This patient is a 41-year-old male who was admitted to the hospital yesterday with bilateral pulmonary emboli and left lower lobe pulmonary infarction. Dr. Huitron has asked me to evaluate the patient from a pulmonary standpoint. He carries a history of recurrent DVT, had been on Xarelto for several years and prior to that Coumadin. He developed some complications with wound infection of the knee with staph and E. coli, has been followed by infectious disease as well. He has actually been fairly stable, although he had been on Xarelto, stopped it in September, then took it for about 4 days and then it was stopped in October. 24 hours prior to admission, he developed some left-sided anterior chest pain with some abdominal discomfort and shortness of breath. He denied fevers or night sweats. He was initially seen by Dr. Quinteros in the Emergency Room. It noted from his note that the patient had some left lower quadrant abdominal pain for 2 days. Some left knee pain and swelling were noted as well. According to the notes, he was taken off Xarelto on 11/04/2016. His oxygen saturation was 98% on room air at the time of admission through the Emergency Room. Chest x-ray showed the PICC catheter in good position with minimal basilar atelectatic changes and CT scan of the chest reveals bilateral pulmonary emboli in distal left upper and left lower pulmonary arteries extending into the subsegmental branches. There is some pulmonary infarction in the left lower lobe with distal right lower lobe pulmonary artery embolus as well. There is mild cardiomegaly. PICC line is in good position. No significant adenopathy was noted. There is hepatic steatosis with a small hiatal hernia. Some mild degenerative changes are noted in the thoracic spine. Presently, the patient is comfortable, denies hemoptysis, and states his chest discomfort continues over the left hemithorax but it is improved. PAST MEDICAL HISTORY: Significant for DVT, osteoarthritis, postop wound infection. FAMILY HISTORY: Significant for father from carcinoma, site unknown. Mother had diabetes. PAST SURGICAL HISTORY: Noted for the left total knee arthroplasty. SOCIAL HISTORY: The patient is , has a daughter who is in good health. He had about a [id number] history of cigarette smoking, quit many years ago. 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 He is not an illicit drug user. In review of the records, he has had carpal tunnel surgery as well. He had DVT of his lower extremity in 2012. PHYSICAL EXAMINATION: VITAL SIGNS: Stable at the present time and he is afebrile. Blood pressure 125/83, oxygen saturation 95% on room air. His weight is stable at 109 kilograms. During his evaluation here in treatment for wound infection, he was 112 kilograms, so he has had about 4-kilogram weight loss. HEENT: Unremarkable. No adenopathy noted. Thyroid normal. He does have a perforated nasal septum. HEART: Regular rate and rhythm. No murmurs are heard. LUNGS: Clear with no crackles or rales noted. ABDOMEN: Soft, nontender. EXTREMITIES: He has edema of the left lower extremity. No other abnormalities were noted. CT scan of the chest is noted as above. Venous Doppler study showed acute DVT in the left lower extremity with chronic nonocclusive thrombus in the right popliteal and right posterior tibial veins. There is occlusion of the left superficial femoral vein and nonocclusion of the left peroneal veins. LABORATORY DATA: White count 7.8, hemoglobin 14.1, platelet count 171,000. Chemistry profile is unremarkable. Troponin was unremarkable as was the coagulation profile with a PTT of [address] scan of the chest suggests pulmonary hypertension. EKG was normal. IMPRESSION: 1. Bilateral pulmonary emboli. 2. Left lower lobe pulmonary infarction. 3. Deep vein thrombosis of both lower extremities. RECOMMENDATIONS: 1. Adjust the heparin to get his PTT above 50 seconds. That will be very important. Once he is there for 24 hours, I believe he can be restarted on Xarelto with loading dose and then maintained on anticoagulants for life. 2. At this point, from a pulmonary standpoint, otherwise he is stable. I do not believe his left lower lobe infiltrative process is pneumonia, but he is on rifampin and daptomycin. If the ceftriaxone is on board for pneumonia, I think that could be discontinued. Thanks for asking me to evaluate Mr. Vital and I will be glad to see him again during his hospitalization.
[2016-12-12] MEDS ORDERED: ARIPIPRAZOLE PO SCH (09:00)
[2016-12-12] MEDS: AMPHETAMINE ASP/SULF/DEXTRAMPH 10 MG TAB PO SCH ×3 (09:00→14:00)
[2016-12-12] MEDS ORDERED: GLUCOSAMINE CHONDROITIN VIT C PO SCH (09:00)
[2016-12-12] MEDS ORDERED: CEFTRIAXONE SOD 1 GM VIAL IV SCH (09:00)
[2016-12-12] MEDS: ARIPIprazole 1 MG/ML ORAL SOLN 150 ML BTL PO SCH (09:43)
[2016-12-12] MEDS: DULOXETINE (CYMBALTA) 30 MG CAP PO SCH (09:44)
[2016-12-12] MEDS: MULTIVITAMIN TAB PO SCH (09:44)
[2016-12-12] MEDS: FLUCONAZOLE 100 MG TAB PO SCH (09:44)
[2016-12-12] MEDS: RIFAMPIN 300 MG CAP PO SCH ×2 (09:45→20:34)
[2016-12-12] MEDS: MoRPHine SULFATE CR 15 MG TAB (MS CONTIN) PO SCH ×2 (09:45→20:34)
[2016-12-12] MEDS ORDERED: NURSING VERBAL MED ORDER ONE (11:30)
--- NOTE | 2016-12-12 12:29 | Medical Consult ---
Consultation Date of Consultation: Dec 12, 2016. Attending Physician: Zack Huitron M.D. Reason for Consultation: Wound infection History of Present Illness Patient is a pleasant 41-year-old male who presented to the emergency department with complaints of chest pain which she described as sharp in nature. The patient states that at the beginning of the week, he had been feeling poorly, but started to have acute chest pain prior to admission under his left breast. The patient did had a temperature of 99.2 F at home prior to admission as well. He was experiencing a headache which has now resolved. This patient has recent history of infection of his left partial knee replacement with MRSA and E coli. The patient has been on IV daptomycin and p.o. rifampin, and was most recently placed on IV Rocephin as well. The patient typically follows with Dr. Cabezas for this infection and he also [facility]. The patient had a wound VAC on his left knee previously, but the wound VAC was removed this week. The patient does have history of DVT, and was initially on Xarelto, but he recently was discontinued from this medication due to concern of continued wound drainage. Since admission, the patient was found to have bilateral PEs on chest CTA. He also had a venous Doppler completed which showed acute DVT in the left lower extremity. He continues on IV daptomycin, IV Rocephin, and p.o. rifampin. He has not had any repeat cultures. His white blood cell count was 7.81. His creatinine was 1.10, and his LFTs were unremarkable. His most recent outpatient lab work was also reviewed today. His ESR was 22. The patient states that he has not had any nausea, vomiting, or diarrhea. He has some continued mild chest pain with deep breath or exertion. Past Medical/Surgical History Medical Problems: (1) Bilateral pulmonary embolism Status: Acute (2) Pulmonary infarct Status: Acute Medical Problems: (1) Chest pain (2) Osteoarthritis of knee (3) Postoperative wound infection (4) Pulmonary embolus and infarction Surgical Hx: Left partial knee replacement I & D of left knee Family History Cancer Diabetes mellitus Noncontributory Social History Smoking Status: Former Smoker Drug Use: none Marital Status: Occupation Status: employed Allergies Coded Allergies: Bupropion (Unverified Allergy, Intermediate, HIVES, 12/11/16) SWELLING OF FACE AND LIPS Home Medications Reported Home Medications Medications Dose Route/Sig Max Daily Dose Days Date Category Morphine Sulfate Er (Morphine Sulfate) 15 Mg Tab 15 Mg PO Q12 12/11/16 Reported Diflucan (Fluconazole) 100 Mg Tab 1 Tab PO DAILY 10 12/10/16 Reported Rocephin (Ceftriaxone Sodium) 1 Gm Inj 1 Gm IV DAILY 12/07/16 Reported Dilaudid (Hydromorphone Hcl) 4 Mg Tab 4 Mg PO Q4 12/06/16 Reported Cubicin (Daptomycin) 500 Mg Sandi IV QD 11/15/16 Reported Rifampin 300 Mg Cap 300 Mg PO BID 42 11/08/16 Rx Adderall 20MG (Amphetamine-Dextroamphetamine 20MG) 1 Tab Tab 30 Mg PO BID 11/04/16 Reported Lamotrigine 100 Mg Tab 100 Mg PO QAM 11/04/16 Reported Abilify (Aripiprazole) 2 Mg Tab 2-4 Mg PO DAILY 11/04/16 Reported Glucosamine Chondroitin (Qwkbeiuxopb-Eeqaezuwvid-Jfh C-) 1 Cap Cap 2 Cap PO QAM 11/04/16 Reported Cymbalta (Duloxetine Hcl) 30 Mg Cap 30 Mg PO DAILY 11/04/16 Reported Multivitamin (Multivitamins) Tab 1 Tab PO QAM 09/13/16 Reported Ativan (Lorazepam) 1 Mg Tab 1 Mg PO HS PRN 09/13/16 Reported Current Inpatient Medications Current Inpatient Medications Medications (Trade) Dose Ordered Sig/Pj Route Start Time Stop Time Status Last Admin Dose Admin Ioversol 125 ml 125 ml UD PRN IV 12/11/16 11:15 12/15/16 11:14 Heparin Sodium/ Dextrose (Heparin 25,000 Unit/500ml D5W) 500 ml @ 41 mls/hr [id number] PRN IV 12/11/16 12:30 01/10/17 12:29 12/12/16 05:39 41 MLS/HR Miscellaneous (Iv Fluids Completed) 1 ea PRN PRN N/A 12/11/16 13:45 12/11/17 13:44 Amphetamine Aspartate/ Amphetam Sulf (Amphetamine Aspartate/Amph Sulf/Dextramphet) 30 mg BID@0900,1400 PO 12/12/16 09:00 12/26/16 08:59 Duloxetine HCl (Cymbalta Cap) 30 mg DAILY PO 12/12/16 09:00 4/21/17 08:59 12/12/16 09:44 30 MG Fluconazole (Diflucan Tab) 100 mg DAILY PO 12/12/16 09:00 12/22/16 08:59 12/12/16 09:44 100 MG Hydromorphone HCl (Dilaudid Tab) 4 mg Q4 PO 12/11/16 16:15 12/25/16 16:14 12/12/16 12:00 4 MG Lamotrigine (Lamictal Tab) 100 mg QAM PO 12/12/16 09:00 01/11/17 08:59 12/12/16 09:44 100 MG Lorazepam (Ativan Tab) 1 mg HS PRN PO 12/11/16 13:45 01/10/17 13:44 Morphine Sulfate (Oramorph Sr Tab) 15 mg Q12 PO 12/11/16 21:00 12/25/16 20:59 12/12/16 09:45 15 MG Multivitamins (Multivitamin Tab) 1 tab QAM PO 12/12/16 09:00 01/11/17 08:59 12/12/16 09:44 1 TAB Rifampin 300 mg 300 mg BID PO 12/11/16 21:00 01/22/17 20:59 12/12/16 09:45 300 MG Daptomycin 500 mg/ Sodium Chloride 60 ml @ 120 mls/hr DAILY@2200 IV 12/11/16 22:00 01/22/17 21:59 12/11/16 21:24 120 MLS/HR Ceftriaxone Sodium/Dextrose (Rocephin Inj/D5 50ml) 60 ml @ 120 mls/hr DAILY@2100 IV 12/11/16 21:00 01/22/17 20:59 12/11/16 21:24 120 MLS/HR Aripiprazole (Abilify Soln) 2-4MG PER PATIENT REQUEST DAILY PO 12/12/16 09:00 01/11/17 08:59 12/12/16 09:43 4 MG Hydromorphone HCl (Dilaudid Inj) 3 mg Q2H PRN IV 12/11/16 17:00 12/25/16 16:59 12/12/16 11:03 3 MG Miscellaneous Information (Order Awaiting Action) 1 ea QS N/A 12/12/16 16:00 01/11/17 15:59 Miscellaneous Information (Nursing Verbal Med Order) 1 ea ONE ONCE N/A 12/12/16 11:30 12/12/16 11:31 UNV Review of Systems Constitutional: No fever, No weakness Eyes: No worsening of vision ENT: No hearing loss Respiratory: + dyspnea on exertion, + shortness of breath Cardiovascular: + chest pain Abdomen: No nausea, No pain, No vomiting Musculoskeletal: + joint pain (left knee) Genitourinary - Male: No hematuria Integumentary: + problem reported (healing wound left knee- minimal drainage), No itch, No rash Physical Exam Date Time Temp Pulse Resp B/P Pulse Ox O2 Delivery O2 Flow Rate FiO2 12/12/16 12:08 128/74 12/12/16 12:00 Nasal Cannula 3.0 12/12/16 11:09 36.5 65 16 152/98 97 Nasal Cannula 3.0 12/12/16 10:08 Nasal Cannula 3.0 12/12/16 08:00 Nasal Cannula 3.0 12/12/16 07:45 36.6 68 16 137/75 96 Room Air 12/12/16 04:10 36.9 77 16 125/83 95 Nasal Cannula 3.0 12/12/16 04:00 Nasal Cannula 3.0 12/12/16 00:08 37.0 71 16 127/75 95 Room Air 12/11/16 23:59 Nasal Cannula 3.0 12/11/16 20:00 Nasal Cannula 3.0 12/11/16 19:27 36.5 85 18 145/87 95 Nasal Cannula 3.0 12/11/16 15:10 36.4 67 21 129/75 12/11/16 15:10 97 Nasal Cannula 2.0 12/11/16 14:43 71 20 115/78 95 12/11/16 13:32 82 12/11/16 13:26 79 16 118/72 96 Nasal Cannula 2.0 General Appearance: WD/WN, no apparent distress Head: normocephalic, atraumatic Eyes: normal inspection, sclerae normal ENT: hearing grossly normal Neck: supple, trachea midline Respiratory/Chest: chest non-tender, lungs clear, normal breath sounds, no respiratory distress, no accessory muscle use Cardiovascular: regular rate, rhythm, no murmur Abdomen/GI: normal bowel sounds, soft Back: normal inspection Extremities/Musculoskelatal: + pertinent finding (mild edema of left knee. Note very minimal drainage on Aquacel currently. No surrounding erythema.) Neurologic/Psych: alert, normal mood/affect Skin: warm/dry, no rash, + pertinent finding (healing surgical wound left knee) Laboratory Results CT ANGIOGRAM OF THE CHEST CLINICAL HISTORY: Atypical chest pain. COMPARISON STUDY: Chest x-ray dated 12/11/2016. TECHNIQUE: Following the IV administration of 92 cc of Optiray 320, CT angiogram of the chest was performed from the upper abdomen to the thoracic inlet utilizing the pulmonary embolus protocol. Images are reviewed in the axial, sagittal, and coronal planes. 3-D MIPS images are created and assessed. IV contrast was administered without complication. CT DOSE: 486.26 mGy.cm FINDINGS: Thyroid: Imaged portions of the thyroid gland are normal in size and attenuation. Thoracic aorta: The thoracic aorta is normal in caliber and demonstrates standard 3-vessel arch anatomy. No dissection is seen. Pulmonary vasculature: The main pulmonary arteries are dilated suggesting pulmonary artery hypertension. There is pulmonary embolus within the distal left main pulmonary artery. This extends into the left upper and left lobar pulmonary arteries extending into segmental and subsegmental branches. There is pulmonary embolus seen within the distal right lower lobar pulmonary artery which extends into segmental and subsegmental branches. Heart: The heart is enlarged, and without pericardial effusion. A right PICC line is in place. Lungs and pleural spaces: Evaluation of the lung parenchyma is degraded by respiratory motion artifact. There are small left and trace right pleural effusions. Consolidation is present at the left lung base. There is mild right basilar atelectasis. The trachea and central airways are clear. Mediastinum: Scattered subcentimeter mediastinal lymph nodes are not pathologically enlarged by size criteria. Ailyn: Clear. Axillae: There is no axillary lymphadenopathy. Upper abdomen: There is evidence of hepatic steatosis. A tiny hiatal hernia is identified. Skeletal structures: No lytic or blastic bony lesions are seen. Degenerative change is noted throughout the thoracic spine. Soft tissues: Bilateral nipple piercings are noted. IMPRESSION: 1. Bilateral pulmonary emboli as above, left greater than right. 2. Small left and trace right pleural effusions with left basilar airspace consolidation. Given the presence of left lower lobe pulmonary embolus this likely represents pulmonary infarct. Correlate clinically for evidence of an infectious/inflammatory pneumonitis. 3. Cardiomegaly. 4. Hepatic steatosis. 5. Additional findings as above. BILATERAL LOWER EXTREMITY VENOUS DOPPLER HISTORY: Pulmonary emboli. COMPARISON STUDY: Left leg venous Doppler 10/19/2016. FINDINGS: Linear echogenic stranding seen within the right popliteal and right posterior tibial veins consistent with chronic nonocclusive thrombus. There is occlusive thrombus seen within the left superficial femoral vein and nonocclusive thrombus within the left peroneal veins. Remaining bilateral lower extremity venous structures are patent. IMPRESSION: 1. Acute DVT within the left lower extremity as described above. 2. Nonocclusive chronic DVT within the right lower extremity as described above. Last 24 Hours Test 12/11/16 22:07 12/12/16 04:53 12/12/16 04:54 12/12/16 12:05 Activated Partial Thromboplast Time 30.8 SECONDS 41.4 SECONDS Partial Thromboplastin Ratio 1.2 1.6 Total Bilirubin 0.3 mg/dl Direct Bilirubin < 0.1 mg/dl Aspartate Amino Transf (AST/SGOT) 10 U/L Alanine Aminotransferase (ALT/SGPT) 19 U/L Alkaline Phosphatase 82 U/L Total Protein 7.0 gm/dl Albumin 3.3 gm/dl Assessment & Plan Patient with history of left partial knee replacement, Infection of the prosthesis, I & D of the left knee and wound infection with MRSA and E. Coli, and now admitted for acute bilateral PE and left lower extremity DVT. He is currently on IV Daptomycin and Rocephin along with PO Rifampin. The patient overall appears to be tolerating these medications well and likely will be continued on them for multiple weeks until wound is healed further. He otherwise does not need any changes in his medications from an ID perspective. We will follow along during admission. Note: This document was dictated utilizing [employer] voice recognition software. Minor errors in design center consultant may be present. PROVIDER ADDENDUM: Patient examined and reviewed with Ms. Ashlye. Agree with above assessment.
[2016-12-12 12:32] LABS: PARTIAL THROMBOPLASTIN RATIO 1.7
[2016-12-12] MEDS ORDERED: HEPARIN IV BOLUS 3,000 UNIT in SYRINGE 0 ML IV ONE (14:00)
--- NOTE | 2016-12-12 16:37 | Hospitalist Progress Note ---
Hospitalist Progress Note Date of Service Dec 12, 2016. Subjective Pt evaluation today including: conversation w/ patient, chart review, lab review Respiratory: + problem reported (hurts when he takes a deep breath improving ) Objective Vital Signs Date Time Temp Pulse Resp B/P Pulse Ox O2 Delivery O2 Flow Rate FiO2 12/12/16 14:02 36.6 73 18 145/85 99 Nasal Cannula 3.0 12/12/16 12:08 128/74 12/12/16 12:00 Nasal Cannula 3.0 12/12/16 11:09 36.5 65 16 152/98 97 Nasal Cannula 3.0 12/12/16 10:08 Nasal Cannula 3.0 12/12/16 08:00 Nasal Cannula 3.0 12/12/16 07:45 36.6 68 16 137/75 96 Room Air 12/12/16 04:10 36.9 77 16 125/83 95 Nasal Cannula 3.0 12/12/16 04:00 Nasal Cannula 3.0 12/12/16 00:08 37.0 71 16 127/75 95 Room Air 12/11/16 23:59 Nasal Cannula 3.0 12/11/16 20:00 Nasal Cannula 3.0 12/11/16 19:27 36.5 85 18 145/87 95 Nasal Cannula 3.0 Physical Exam General Appearance: no apparent distress Eyes: normal inspection, sclerae normal ENT: hearing grossly normal Neck: trachea midline Respiratory/Chest: lungs clear Cardiovascular: regular rate, rhythm Abdomen: normal bowel sounds Skin: normal color Laboratory Results Last 24 Hours Test 12/11/16 22:07 12/12/16 04:53 12/12/16 04:54 12/12/16 12:05 Activated Partial Thromboplast Time 30.8 SECONDS 41.4 SECONDS 45.0 SECONDS Partial Thromboplastin Ratio 1.2 1.6 1.7 Total Bilirubin 0.3 mg/dl Direct Bilirubin < 0.1 mg/dl Aspartate Amino Transf (AST/SGOT) 10 U/L Alanine Aminotransferase (ALT/SGPT) 19 U/L Alkaline Phosphatase 82 U/L Total Protein 7.0 gm/dl Albumin 3.3 gm/dl Assessment and Plan (1) Pulmonary embolus and infarction Assessment & Plan: will change to xarelto this evening and discontinue iv heparin. Check cbc in the am and if OK will discharge to home. (2) MRSA (methicillin resistant Staphylococcus aureus) infection Assessment & Plan: continue daptomycin (3) Chronic pain Assessment & Plan: present medications working (4) Postoperative wound infection 41 y.o with Acute PE will be admitted for iv heparin and further testing. 1. Acute PE will place on IV heparin per protocol. I will ask Dr. Ornelas to see. I anticipate he will most likely end up back on Xarelto. He did not do well on coumadin. Historically he will require blood thinner for life. Patient and his are requesting further testing to determine real cause of his hypercoagulable state. Testing can be done as outpatient. 2. History of Knee infection receiving active therapy. I will ask the doctors treating him as an outpatient to make recommendations. 3. History of chronic pain will continue dilaudid and his chronic narcotics. 4. Code full Problem Qualifiers (1) Postoperative wound infection: Encounter type: subsequent encounter Qualified Codes: T81.4XXD - Infection following a procedure, subsequent encounter
[2016-12-12] MEDS: RIVAROXABAN 10 MG TAB PO SCH (16:58)
[2016-12-12] MEDS: FLUOROMETHOLONE 0.25% OPR SCH ×2 (17:01→20:34)
--- NOTE | 2016-12-12 18:29 | PROGRESS NOTE ---
DATE: 12/12/2016 CHIEF COMPLAINT: 1. Pulmonary embolism. 2. Status post left unicompartmental knee arthroplasty. PROGRESS: Jt was seen and examined at bedside today. Overall, his knees actually looked much better. His pain is improving. He has been on the anticoagulation and has no new complaints. OBJECTIVE: Physical Examination of his left knee, the incision appears to be closing nicely. He is sitting with his knee in full extension. If he sits at the edge of the bed, he is able to flex to 90 degrees. The wound seems to be healing nicely. I see no signs of infection. IMPRESSION: 1. Pulmonary embolus. 2. Status post left unicompartmental knee arthroplasty with infected wound. PLAN: At this point, everything seems to be improving. They will get some blood work tomorrow morning and they look good, I will discharge him to home on the Xarelto. He will continue physical therapy to work on range of motion of his knee and finish following up with wound care as well as infectious disease. I will see him back in the office next Saturday as already scheduled.
--- NOTE | 2016-12-12 19:45 | ECHOCARDIOGRAM REPORT ---
*NOTICE TO RECEIVING DEMOCRAT AGENCY This information is strictly Confidential and protected under [place] law. [place] law prohibits you from making any further disclosure of this information unless further disclosure is expressly permitted by the written consent of the person to whom it pertains or is authorized by law. A general authorization for the release of medical or other information is not sufficient for this purpose. Hospital accepts no responsibility if the information is made available to any other person, INCLUDING THE PATIENT. Interpretation Summary * Name: CLAUDIA GOMES Study Date: 12/12/2016 08:29 AM BP: 137/75 mmHg * Patient Location: C.2T\S\S233\S\1 HR: 68 * : 1975 (M/d/yyyy) Gender: Male Height: 68 in * Age: 41 yrs Ethnicity: CA Weight: 248 lb * Ordering Physician: Zack Huitron * Referring Physician: Edwin Ornelas D.O.Int.Med. * Performed By: Thomas Stern RCS * * Reason For Study: Pulmonary HTN * BSA: 2.2 m2 * -- Conclusions -- * 1. Mildly dilated left ventricle with normal systolic function. Estimated EF 60-65%. No definite regional wall motion abnormalities. No left ventricular hypertrophy. * 2. No significant valvular abnormalities visualized. * 3. Normal estimated right ventricular systolic pressure; 31 mmHg. * 4. No prior study available for comparison. Procedure Details * A complete two-dimensional transthoracic echocardiogram was performed (2D, M-mode, Doppler and color flow Doppler). Left Ventricle * Mildly dilated left ventricle with normal systolic function. Estimated EF 60-65%. No definite regional wall motion abnormalities. No left ventricular hypertrophy. Right Ventricle * The right ventricle is normal in size and function. * The right ventricular systolic function is normal as assessed by tricuspid annular plane systolic excursion (TAPSE) (normal >1.5 cm). Atria * The left atrial size is normal. * Right atrial size is normal. * There is no evidence of atrial septal defect, but resolution does not allow assessment for a patent foramen ovale. Mitral Valve * The mitral valve leaflets appear normal. There is no evidence of stenosis, fluttering, or prolapse. * Significant mitral regurgitation is absent. Tricuspid Valve * The tricuspid valve is not well visualized, but is grossly normal. * There is no tricuspid stenosis. * There is trace tricuspid regurgitation. * Tricuspid regurgitant jet was faint. Aortic Valve * The aortic valve is normal in structure and function. * The aortic valve is trileaflet. * No hemodynamically significant valvular aortic stenosis. * No aortic regurgitation is present. Pulmonic Valve * The pulmonary valve is inadequately visualized, but the Doppler data is adequate for interpretation. * There is no pulmonic valvular stenosis. * Trace pulmonic valvular regurgitation. Great Vessels * The aortic root is normal size. Pericardium/Pleural * There is no pericardial effusion. Great Vessels * Normal inferior vena cava size and collapsability with sniff indicates a normal right atrial pressure of 3 mmHg MMode 2D Measurements and Calculations IVSd 1.0 cm IVSs 1.3 cm LVIDd 5.7 cm LVIDs 3.5 cm LVPWd 1.1 cm LVPWs 1.3 cm IVS/LVPW 0.94 FS 38.8 % EDV(Teich) 162.9 ml ESV(Teich) 51.4 ml EF(Teich) 68.4 % EDV(cubed) 189.6 ml ESV(cubed) 43.5 ml EF(cubed) 77.1 % % IVS thick 25.9 % % LVPW thick 18.0 % LV mass(C)d 246.9 grams LV mass(C)dI 110.2 grams/m\S\2 LV mass(C)s 152.6 grams LV mass(C)sI 68.1 grams/m\S\2 CO(Teich) 8.1 l/min CI(Teich) 3.6 l/min/m\S\2 SV(Teich) 111.5 ml SI(Teich) 49.8 ml/m\S\2 CO(cubed) 10.7 l/min CI(cubed) 4.8 l/min/m\S\2 SV(cubed) 146.1 ml SI(cubed) 65.2 ml/m\S\2 Ao root diam 3.7 cm Ao root area 10.6 cm\S\2 ACS 2.0 cm LA dimension 4.2 cm LA/Ao 1.1 LVAd ap4 40.9 cm\S\2 LVLd ap4 9.1 cm EDV(MOD-sp4) 152.0 ml EDV(sp4-el) 112.6 ml LVAs ap4 25.1 cm\S\2 LVLs ap4 7.8 cm ESV(MOD-sp4) 68.0 ml ESV(sp4-el) 46.7 ml EF(MOD-sp4) 55.3 % EF(sp4-el) 58.5 % LVAd ap2 48.9 cm\S\2 LVLd ap2 10.1 cm EDV(MOD-sp2) 196.0 ml LVAs ap2 24.2 cm\S\2 LVLs ap2 7.6 cm ESV(MOD-sp2) 63.0 ml EF(MOD-sp2) 67.9 % CO(MOD-sp4) 6.1 l/min CI(MOD-sp4) 2.7 l/min/m\S\2 SV(MOD-sp4) 84.0 ml SI(MOD-sp4) 37.5 ml/m\S\2 CO(MOD-sp2) 9.7 l/min CI(MOD-sp2) 4.3 l/min/m\S\2 SV(MOD-sp2) 133.0 ml SI(MOD-sp2) 59.4 ml/m\S\2 CO(sp4-el) 4.8 l/min CI(sp4-el) 2.1 l/min/m\S\2 SV(sp4-el) 65.9 ml SI(sp4-el) 29.4 ml/m\S\2 Doppler Measurements and Calculations MV E max cierra 97.4 cm/sec MV A max cierra 84.4 cm/sec MV E/A 1.2 MV P1/2t max cierra 102.5 cm/sec MV P1/2t 110.7 msec MVA(P1/2t) 2.0 cm\S\2 MV dec slope 271.2 cm/sec\S\2 MV dec time 0.25 sec Ao V2 max 165.1 cm/sec Ao max PG 10.9 mmHg Ao max PG (full) 1.3 mmHg LV V1 max PG 9.6 mmHg LV V1 max 155.2 cm/sec TV E max cierra 63.7 cm/sec PA V2 max 120.1 cm/sec PA max PG 5.8 mmHg PI dec slope 145.8 cm/sec\S\2 TR max cierra 262.0 cm/sec RVSP(TR) 30.5 mmHg RAP systole 3.0 mmHg
[2016-12-12] MEDS: CEFTRIAXONE SOD INJ 1000 MG in DEXTROSE 5% 50ML IV SCH (20:19)
[2016-12-12] MEDS: DAPTOMYCIN IV 500 MG in NSS 50ML IV SCH (22:01)
[2016-12-13] MEDS: HYDROmorphone INJ 2 MG/ML SYR/VIAL IV PRN ×4 (00:12→10:37)
[2016-12-13] MEDS: HYDROmorphone HCL 2 MG TAB PO SCH ×4 (04:19→12:00)
[2016-12-13 05:51] LABS: HEMATOCRIT 37.8 % (42-52); MEAN CELL VOLUME 79.7 fL (80-100); MEAN CORPUSCULAR HGB CONC 33.9 g/dl (32-36); MEAN PLATELET VOLUME 8.6 fL (7.4-10.4); PLATELET COUNT 174 K/uL (130-400); RED BLOOD COUNT 4.74 M/uL (4.7-6.1); WHITE BLOOD COUNT 5.12 K/uL (4.8-10.8)
[2016-12-13 06:02] LABS: PARTIAL THROMBOPLASTIN RATIO 1.2
[2016-12-13 06:37] LABS: CALCIUM 8.8 mg/dl (8.5-10.1); CREATININE 1.2 mg/dl (0.60-1.40); POTASSIUM 4.1 mmol/L (3.5-5.1)
[2016-12-13 07:01] VITALS: BP 122/74; PULSE 74; TEMP 36.5; O2SAT 94
--- NOTE | 2016-12-13 07:43 | PULMONARY PROGRESS NOTE ---
DATE: 12/13/2016 The patient is comfortable today. He has been ambulating in the room with help without difficulty. He has not had any bleeding. States the left chest discomfort is almost completely resolved. He is tolerating the Xarelto well without difficulties. PHYSICAL EXAMINATION: VITAL SIGSN: Stable and he is afebrile. HEENT: Unremarkable. NECK: There is no neck vein distention or HJR. HEART: Regular rate and rhythm. LUNGS: Clear. No crackles or wheezing noted. ABDOMEN: Soft, nontender. EXTREMITIES: He has no cyanosis, clubbing or edema. LABORATORY DATA: White count was 5.1, hemoglobin 12.8. Chemistry profile looked good with a CO2 slightly increased at 33. IMPRESSION: 1. Bilateral pulmonary emboli. 2. Deep vein thrombosis, left lower extremity. RECOMMENDATIONS: 1. Lifelong anticoagulation with Xarelto with appropriate dose. 2. Should probably have a chest x-ray done again in about 6-8 weeks. Overall, he is stable and doing well.
[2016-12-13] MEDS: AMPHETAMINE ASP/SULF/DEXTRAMPH 10 MG TAB PO SCH (09:00)
[2016-12-13] MEDS: FLUCONAZOLE 100 MG TAB PO SCH (09:06)
[2016-12-13] MEDS: DULOXETINE (CYMBALTA) 30 MG CAP PO SCH (09:06)
[2016-12-13] MEDS: MULTIVITAMIN TAB PO SCH (09:06)
[2016-12-13] MEDS: RIVAROXABAN 10 MG TAB PO SCH (09:08)
[2016-12-13] MEDS: RIFAMPIN 300 MG CAP PO SCH (09:10)
[2016-12-13] MEDS: FLUOROMETHOLONE 0.25% OPR SCH (09:11)
[2016-12-13] MEDS: MoRPHine SULFATE CR 15 MG TAB (MS CONTIN) PO SCH (09:20)
[2016-12-13] MEDS: ARIPIprazole 1 MG/ML ORAL SOLN 150 ML BTL PO SCH (09:53)
[2016-12-13] MEDS ORDERED: XRL10 PO ×2 (09:58)
--- NOTE | 2016-12-13 10:01 | Discharge Instructions ---
Discharge Instructions Date of Service Dec 13, 2016. Admission Reason for Admission: Pulmonary Embolus And Infarction Discharge Discharge Diagnosis / Problem: Pulmonary Embolus Discharge Goals Goal(s): Improve disease control Activity Recommendations Activity Limitations: resume your previous activity . Instructions / Follow-Up Instructions / Follow-Up Primary Care physician in 1 week Current Hospital Diet Patient's current hospital diet: Regular Diet Discharge Diet Recommended Diet: Regular Diet Pending Studies Studies pending at discharge: no Medical Emergencies . Who to Call and When: Medical Emergencies: If at any time you feel your situation is an emergency, please call 911 immediately. . Non-Emergent Contact Non-Emergency issues call your: Primary Care Provider . Past History Medical & Surgical History: (1) Pulmonary embolus and infarction (2) Chronic pain (3) MRSA (methicillin resistant Staphylococcus aureus) infection . "Provider Documentation" section prepared by Zack Huitron. VTE Core Measure Inpt VTE Proph given/why not?: Other Anticoagulation (iv heparin to tx dvt/pe)
[2016-12-13 10:58] VITALS: BP 122/74; PULSE 74; TEMP 36.5; O2SAT 94
--- NOTE | 2016-12-13 11:56 | Infectious Disease Progress Nt ---
Progress Note Date of Service Dec 13, 2016. Subjective Pt evaluation today including: conversation w/ patient, conversation w/ family (), physical exam, chart review, lab review, review of studies, review of inpatient medication list WBC count was 5.12 today. Creatinine was 1.20. I spoke to Mary in Case management about this patient this morning. Patient is anticipating D/C this afternoon. He will go home with IV Ceftriaxone, Daptomycin an Rifampin. He will be following up with Dr. Cabezas at the wound care center. I reviewed the patient's CTA of the chest again this morning with he and his . He states that his chest pain is very slightly improved. All Other Systems: Reviewed and Negative Medications Current Inpatient Medications Medications (Trade) Dose Ordered Sig/Pj Route Start Time Stop Time Status Last Admin Dose Admin Ioversol (Optiray 320) 125 ml UD PRN IV 12/11/16 11:15 12/15/16 11:14 Miscellaneous (Iv Fluids Completed) 1 ea PRN PRN N/A 12/11/16 13:45 12/11/17 13:44 Amphetamine Aspartate/ Amphetam Sulf (Amphetamine Aspartate/Amph Sulf/Dextramphet) 30 mg BID@0900,1400 PO 12/12/16 09:00 12/26/16 08:59 Duloxetine HCl (Cymbalta Cap) 30 mg DAILY PO 12/12/16 09:00 01/11/17 08:59 12/13/16 09:06 30 MG Fluconazole (Diflucan Tab) 100 mg DAILY PO 12/12/16 09:00 12/22/16 08:59 12/13/16 09:06 100 MG Hydromorphone HCl (Dilaudid Tab) 4 mg Q4 PO 12/11/16 16:15 12/25/16 16:14 12/13/16 09:11 4 MG Lamotrigine (Lamictal Tab) 100 mg QAM PO 12/12/16 09:00 01/11/17 08:59 12/13/16 09:06 100 MG Lorazepam (Ativan Tab) 1 mg HS PRN PO 12/11/16 13:45 01/10/17 13:44 Morphine Sulfate (Oramorph Sr Tab) 15 mg Q12 PO 12/11/16 21:00 4/4/17 20:59 12/13/16 09:20 15 MG Multivitamins (Multivitamin Tab) 1 tab QAM PO 12/12/16 09:00 01/11/17 08:59 12/13/16 09:06 1 TAB Rifampin 300 mg 300 mg BID PO 12/11/16 21:00 01/22/17 20:59 12/13/16 09:10 300 MG Daptomycin 500 mg/ Sodium Chloride 60 ml @ 120 mls/hr DAILY@2200 IV 12/11/16 22:00 01/22/17 21:59 12/12/16 22:01 120 MLS/HR Ceftriaxone Sodium/Dextrose (Rocephin Inj/D5 50ml) 60 ml @ 120 mls/hr DAILY@2100 IV 12/11/16 21:00 01/22/17 20:59 12/12/16 20:19 120 MLS/HR Aripiprazole (Abilify Soln) 2-4MG PER PATIENT REQUEST DAILY PO 12/12/16 09:00 01/11/17 08:59 12/13/16 09:53 4 MG Hydromorphone HCl (Dilaudid Inj) 3 mg Q2H PRN IV 12/11/16 17:00 12/25/16 16:59 12/13/16 10:37 3 MG Fluorometholone (Fml Forte 0.25% Op Susp) 1 drops QID OPR 12/12/16 17:00 01/11/17 16:59 12/13/16 09:11 1 DROPS Rivaroxaban (Xarelto Tab) 15 mg BIDM PO 12/12/16 16:45 01/11/17 16:44 12/13/16 09:08 15 MG Heparin Sodium (Porcine) (Heparin 10 Unit/ ml 5 ml Flush) 5 ml PRN PRN FLUSH 12/13/16 00:15 01/12/17 00:14 12/13/16 06:44 5 ML Objective Vital Signs Date Time Temp Pulse Resp B/P Pulse Ox O2 Delivery O2 Flow Rate FiO2 12/13/16 10:58 36.5 74 18 94 Room Air 12/13/16 08:00 Room Air 12/13/16 07:01 36.5 74 18 122/74 94 12/13/16 00:00 Room Air 12/12/16 23:46 37.1 85 20 145/90 92 Room Air 12/12/16 21:48 37.0 78 18 158/96 92 Room Air 12/12/16 20:55 36.9 71 22 100 3.0 12/12/16 19:08 36.9 71 22 157/93 100 Nasal Cannula 3.0 Humidified Oxygen 12/12/16 16:00 100 Room Air 12/12/16 14:02 36.6 73 18 145/85 99 Nasal Cannula 3.0 12/12/16 12:08 128/74 12/12/16 12:00 Nasal Cannula 3.0 Physical Exam General Appearance: WD/WN, no apparent distress Eyes: normal inspection, sclerae normal ENT: hearing grossly normal Neck: supple, trachea midline Respiratory/Chest: no respiratory distress, no accessory muscle use Cardiovascular: + pertinent finding (regular rate) Extremities: normal range of motion, + pertinent finding (dressing over left knee) Neurologic/Psychiatric: alert, normal mood/affect Skin: normal color, warm/dry, no rash Laboratory Results Last 24 Hours Test 12/12/16 12:05 12/13/16 05:23 Activated Partial Thromboplast Time 45.0 SECONDS 30.5 SECONDS Partial Thromboplastin Ratio 1.7 1.2 White Blood Count 5.12 K/uL Red Blood Count 4.74 M/uL Hemoglobin 12.8 g/dL Hematocrit 37.8 % Mean Corpuscular Volume 79.7 fL Mean Corpuscular Hemoglobin 27.0 pg Mean Corpuscular Hemoglobin Concent 33.9 g/dl RDW Standard Deviation 45.0 fL RDW Coefficient of Variation 15.4 % Platelet Count 174 K/uL Mean Platelet Volume 8.6 fL Sodium Level 140 mmol/L Potassium Level 4.1 mmol/L Chloride Level 103 mmol/L Carbon Dioxide Level 33 mmol/L Anion Gap 4.0 mmol/L Blood Urea Nitrogen 12 mg/dl Creatinine 1.20 mg/dl Est Creatinine Clear Calc Drug Dose 96.7 ml/min Estimated GFR () 85.3 Estimated GFR (Non- 73.6 BUN/Creatinine Ratio 10.0 Random Glucose 122 mg/dl Calcium Level 8.8 mg/dl Assessment and Plan (1) Pulmonary embolus and infarction Status: Acute (2) MRSA (methicillin resistant Staphylococcus aureus) infection Status: Acute continue daptomycin (3) Postoperative wound infection Status: Chronic Patient with history of left partial knee replacement, Infection of the prosthesis, I & D of the left knee and wound infection with MRSA and E. Coli, and admitted for acute bilateral PE and left lower extremity DVT. He is currently on IV Daptomycin and Rocephin along with PO Rifampin. The patient overall appears to be tolerating these medications well and likely will be continued on them for multiple weeks until wound is healed further. He is OK For D/C from an ID perspective and will follow up next week with Dr. Cabezas at the [facility]. Thanks PROVIDER ADDENDUM: Patient reviewed with Ms. Ashley. Agree with above assessment.
--- NOTE | 2016-12-13 14:17 | PROGRESS NOTE ---
DATE: 12/12/2016 SUBJECTIVE: The patient is seen today following admission for management of a pulmonary embolism evaluated earlier yesterday morning. The patient has no specific complaints regarding his left knee postsurgical wounds. The patient denies any fevers, chills or night sweats. The patient states that the chest pain and shortness of breath that he was experiencing is improving. No other systemic complaints at this time. OBJECTIVE: The patient's vital signs were reviewed and found to be unremarkable. The patient is afebrile. The current sites today show no substantial change from prior outpatient visit 2 days prior. Excellent granulation tissue was noted in the base of all the sites. There is no periwound erythema, no active drainage, odor or edema noted. No tenderness to palpation present. ASSESSMENT: Post-surgical incision and drainage of abscess sites on the left knee, stable. PLAN: At this time, no further debridement is indicated. The site will continue to be managed with Aquacel AG and gauze changed daily. The patient will continue to monitored while inpatient and followed up in the outpatient clinic in 1 week.
[2016-12-19] MEDS ORDERED: RFM300 PO (10:48)
--- NOTE | 2016-12-24 13:37 | DISCHARGE SUMMARY ---
Please see dictated H\T\P for full details of his presentation. The patient is a 41-year-old with history of DVT who underwent a partial knee replacement on October 12 of this year. He had been on Xarelto for DVT; however, that had to be stopped secondary to bleeding complications after the procedure. He then developed a complicated wound infection and he is being followed in wound clinic for the wound infection that is positive for MRSA and E. coli. He presented complaining of shortness of breath the night prior to admission and was discovered to have on CAT scan of the chest bilateral pulmonary emboli, left greater than right; small left and trace right pleural effusion with left basilar air space consolidation. Given the presence of a left lower pulmonary embolus this likely represents pulmonary infarct; cardiomegaly, hepatic steatosis. Venous Doppler showed acute DVT within the left lower extremity, nonocclusive chronic DVT of the right lower extremity. He was seen in consultation by Dr. Ornelas for pulmonary. He recommended heparin, suggested to PTT above 50 seconds and then restarting Xarelto with a loading dose and then maintain anticoagulants for life. He was seen by Re Ashley for infectious disease for Dr. Greene, they recommended continuation of IV daptomycin and Rocephin along with p.o. rifampin and recommended that he followup in the wound clinic with Dr. Cabezas in 1 week. He was seen by Dr. Harrison for orthopedics who approved the patient going back on Xarelto if that was deemed his best treatment option. There are no orthopedic contraindications to blood thinning at this point in time. The patient therefore was sent home on 12/13/2016 in stable condition on Xarelto 50 mg daily twice a day and followed by 20 mg daily. The twice a day dosing is for a total of 21 days followed by 20 mg daily of Xarelto. His other medications were continued at the doses he was prior to admission, please see dictated medical reconciliation for full details of these medications and dosing. Time spent reviewing the chart, discussion with the patient on the day of discharge was 35 minutes.
[2017-01-07] MEDS ORDERED: DOXY100C76 PO (14:23)
== END 2016-12-13 12:55 | disposition home health service (06) | DRG 176 ==
LOC: ENRESERVDT → ENRESERVTM → C.EDB 09:59 → C.2T 12:40 → UNDOADMIN 12:40 → EDBEDREQ 13:08 → C.MS2W 12-12 21:39
PROVIDERS: ADMIT Internal Medicine; ATTEND Internal Medicine
DX: I26.99 Other pulmonary embolism without acute cor pulmonale (principal); I82.402 Acute embolism and thrombosis of unspecified deep veins of left lower extremity; B95.62 Methicillin resistant Staphylococcus aureus infection as the cause of diseases classified elsewhere; G89.29 Other chronic pain; Z87.891 Personal history of nicotine dependence; Z96.652 Presence of left artificial knee joint; K44.9 Diaphragmatic hernia without obstruction or gangrene; T81.4XXD Infection following a procedure, subsequent encounter; Y83.8 Other surgical procedures as the cause of abnormal reaction of the patient, or of later complication, without mention of misadventure at the time of the procedure

== ENCOUNTER → 2016-12-17 | Outpatient (CLI) | payer OTHER ==
[~2016-12-17] MED LIST changes: +DOXY100C76 PO; -LVQ500 PO; +MORP1TAB11 PO; +OXYC-57 PO; +OXYC1TAB3 PO; -OXYC20TA50 PO; -OXYSR/20 PO; -TOBRSUS OPB; +XRL10 PO; +XRL20 PO; +[UNRECOGNIZED DRUG - CODE] SC
[2016-12-17 14:28] LABS: HEMATOCRIT 39.9 % (42-52); MEAN CELL VOLUME 77.9 fL (80-100); MEAN CORPUSCULAR HEMOGLOBIN 26.6 pg (25-34); MEAN CORPUSCULAR HGB CONC 34.1 g/dl (32-36); MEAN PLATELET VOLUME 8.7 fL (7.4-10.4); PLATELET COUNT 194 K/uL (130-400); RED BLOOD COUNT 5.12 M/uL (4.7-6.1); WHITE BLOOD COUNT 5.73 K/uL (4.8-10.8)
[2016-12-17 14:42] LABS: BLOOD UREA NITROGEN 13 mg/dl (7-18); BUN/CREATININE RATIO 10.5 (10-20); CALCIUM 9.4 mg/dl (8.5-10.1); CARBON DIOXIDE 27 mmol/L (21-32); CHLORIDE 103 mmol/L (98-107); GLUCOSE 108 mg/dl (70-99); POTASSIUM 3.9 mmol/L (3.5-5.1); SODIUM 139 mmol/L (136-145)
[2016-12-17 14:46] LABS: ALKALINE PHOSPHATASE 84 U/L (45-117); ALT/SGPT 22 U/L (12-78); AST/SGOT 14 U/L (15-37); C-REACTIVE PROTEIN 0.73 mg/dl (0-0.29)
--- NOTE | 2016-12-19 07:50 | CODING QUERY NO DIAGNOSIS ---
Valid Physician Order Needed A valid physician order must be submitted in order to properly bill for the service(s) provided, including date of service(s), valid diagnosis, and physician signature. If these tests are done on a recurring basis the original physician order must be submitted in order to code and bill for the service(s) provided. Please fax us the original, signed physician order so that we may expedite billing to [phone] DOS 12/17 * CMP, CPK, CRP, ESR Thank you Tata Garcia Health Information Management
== END | disposition home or self-care (01) ==
LOC: C.LABSPEC 14:04
PROVIDERS: ATTEND Orthopaedic Surgery
DX: Z51.81 Encounter for therapeutic drug level monitoring (principal); Z79.2 Long term (current) use of antibiotics

== ENCOUNTER → 2016-12-24 | Outpatient (CLI) | payer OTHER ==
[~2016-12-24] MED LIST changes: -FLUC100T4 PO
[2016-12-24 11:51] LABS: MEAN CELL VOLUME 79.5 fL (80-100); MEAN CORPUSCULAR HEMOGLOBIN 27.6 pg (25-34); MEAN CORPUSCULAR HGB CONC 34.8 g/dl (32-36); MEAN PLATELET VOLUME 8.8 fL (7.4-10.4); PLATELET COUNT 185 K/uL (130-400); RED BLOOD COUNT 5.03 M/uL (4.7-6.1); WHITE BLOOD COUNT 4.87 K/uL (4.8-10.8)
[2016-12-24 11:58] LABS: ALT/SGPT 23 U/L (12-78); BLOOD UREA NITROGEN 13 mg/dl (7-18); BUN/CREATININE RATIO 12.1 (10-20); C-REACTIVE PROTEIN 0.71 mg/dl (0-0.29); CALCIUM 8.9 mg/dl (8.5-10.1); CARBON DIOXIDE 27 mmol/L (21-32); CHLORIDE 105 mmol/L (98-107); GLUCOSE 111 mg/dl (70-99); POTASSIUM 3.7 mmol/L (3.5-5.1); SODIUM 140 mmol/L (136-145)
[2016-12-24 12:01] LABS: ALKALINE PHOSPHATASE 89 U/L (45-117); AST/SGOT 10 U/L (15-37)
--- NOTE | 2016-12-25 13:06 | CODING QUERY NO DIAGNOSIS ---
TREATMENT RENDERED WITHOUT A DIAGNOSIS To promote full compliance with coding requirements relating to patient care, physician participation is requested in all cases of surgical coder uncertainty. Please assist us with providing a diagnosis/symptom for the test(s) below: A diagnosis/symptom was not documented on your Order. A valid diagnosis/symptom is required to bill all insurances. Please remember that we are unable to code a diagnosis of rule out, probable, possible, questionable, or suspected. Tests that require a diagnosis: DOS: 12/24/16 * CMP DIAGNOSIS: * CPK DIAGNOSIS: * CRP DIAGNOSIS: * CBC DIAGNOSIS: * ESR DIAGNOSIS: Provider Signature: Date: Thank you Lacey Tse [facility] Information Management Once completed, please kindly fax back to [phone] For questions please call [phone]
== END | disposition home or self-care (01) ==
LOC: C.LABSPEC 11:39
PROVIDERS: ATTEND Orthopaedic Surgery
DX: T84.54XD Infection and inflammatory reaction due to internal left knee prosthesis, subsequent encounter (principal); Y83.1 Surgical operation with implant of artificial internal device as the cause of abnormal reaction of the patient, or of later complication, without mention of misadventure at the time of the procedure

== ENCOUNTER → 2016-12-31 | Outpatient (CLI) | payer OTHER ==
[2016-12-31 19:55] LABS: HEMATOCRIT 39.8 % (42-52); MEAN CELL VOLUME 78.2 fL (80-100); MEAN CORPUSCULAR HEMOGLOBIN 27.3 pg (25-34); MEAN CORPUSCULAR HGB CONC 34.9 g/dl (32-36); PLATELET COUNT 179 K/uL (130-400); RED BLOOD COUNT 5.09 M/uL (4.7-6.1); WHITE BLOOD COUNT 5.87 K/uL (4.8-10.8)
[2016-12-31 20:13] LABS: ALT/SGPT 28 U/L (12-78); BLOOD UREA NITROGEN 11 mg/dl (7-18); BUN/CREATININE RATIO 9.7 (10-20); C-REACTIVE PROTEIN 0.44 mg/dl (0-0.29); CARBON DIOXIDE 27 mmol/L (21-32); CHLORIDE 104 mmol/L (98-107); GLUCOSE 98 mg/dl (70-99); POTASSIUM 3.5 mmol/L (3.5-5.1); SODIUM 139 mmol/L (136-145)
[2016-12-31 20:16] LABS: ALB/GLOB RATIO 1.1 (0.9-2); ALKALINE PHOSPHATASE 87 U/L (45-117); AST/SGOT 12 U/L (15-37)
== END | disposition home or self-care (01) ==
LOC: C.LABSPEC 19:03
PROVIDERS: ATTEND Internal Medicine Infectious Disease
DX: Z51.81 Encounter for therapeutic drug level monitoring (principal); Z79.2 Long term (current) use of antibiotics

== ENCOUNTER → 2017-01-04 | Outpatient (CLI) | payer OTHER ==
[~2017-01-04] MED LIST changes: +OPTIRAY 320 IV PRN
--- NOTE | 2017-01-04 11:00 | DIAGNOSTIC IMAGING REPORT ---
CT left pain LOWER EXTREMITY WITH CLINICAL HISTORY: Infection pain TECHNIQUE: Transaxial acquisition. Multi axial reformatted images. COMPARISON STUDY: None FINDINGS: Prior placement of a medial compartment hemiarthroplasty. Cortical margins are intact. There is no evidence for bony destructive process. Bone mineralization/density is uniform. Moderate soft tissue edematous change about the knee. Mild peripatellar soft tissue edematous change. Minimal joint effusion. IMPRESSION: 1. No evidence for osteomyelitis based on CT criteria. 2. Status post medial joint compartment hemiarthroplasty appearing to be in good position. 3. Moderate surrounding soft tissue edematous change. 4. Trace joint effusion. 5. No evidence for drainable abscess or collection. Electronically signed by: Ifeanyi Bueno M.D. 01/04/2017 10:58 AM Dictated Date/Time: 01/04/2017 10:53 AM
== END | disposition home or self-care (01) ==
LOC: C.CTS 10:18
PROVIDERS: ATTEND Emergency Medicine
DX: T84.54XA Infection and inflammatory reaction due to internal left knee prosthesis, initial encounter (principal); Y83.1 Surgical operation with implant of artificial internal device as the cause of abnormal reaction of the patient, or of later complication, without mention of misadventure at the time of the procedure

== ENCOUNTER → 2017-02-04 | Outpatient (CLI) | payer OTHER ==
[~2017-02-04] MED LIST changes: -CBCI IV; -CEFT1INJ57 IV; -OPTIRAY 320 IV PRN; -RFM300 PO
--- NOTE | 2017-02-04 11:32 | DIAGNOSTIC IMAGING REPORT ---
CHEST 2 VIEWS ROUTINE CLINICAL HISTORY: LUNG CONSOLIDATION COMPARISON STUDY: 12/11/2016 FINDINGS: The cardiac and mediastinal contours are normal. There is no evidence of focal pulmonary consolidation. There is no evidence of failure. No pleural effusions are visualized.[ There has been interval resolution of the previous identified by basilar opacities. IMPRESSION: No active disease in the chest. Electronically signed by: Maverick Curry M.D. 02/04/2017 11:31 AM Dictated Date/Time: 02/04/2017 11:30 AM
== END | disposition home or self-care (01) ==
LOC: C.RAD 11:11
PROVIDERS: ATTEND Family Medicine
DX: J18.1 Lobar pneumonia, unspecified organism (principal)

== ENCOUNTER → 2017-03-06 | Outpatient (CLI) | payer OTHER ==
[~2017-03-06] MED LIST changes: +OPTIRAY 320 IV PRN
--- NOTE | 2017-03-06 13:05 | DIAGNOSTIC IMAGING REPORT ---
CHEST CTA for PULMONARY ARTERIES CT DOSE: 701.24 mGy.cm HISTORY: Atypical chest pain. TECHNIQUE: Multiaxial CT images of the chest were performed following the intravenous administration of contrast to evaluate the pulmonary arteries. Maximal intensity projection images were also obtained. COMPARISON STUDY: Chest CTA 12/11/2016. FINDINGS: No evidence for an aortic dissection. No pleural or pericardial effusions. Small linear filling defects seen within the right lower lobe segmental pulmonary arteries consistent with residual chronic embolus. The left pulmonary arteries are patent. No acute pulmonary emboli identified. No mediastinal or hilar lymphadenopathy. The visualized liver and spleen are unremarkable. The central airways are patent. No pneumothorax. Lingular densities favor subsegmental atelectasis or scarring. No new focal lung consolidations to suggest pneumonia. IMPRESSION: Near complete resolution of the pulmonary emboli seen from the prior study with only a few linear chronic emboli remaining within the subsegmental pulmonary arteries of the right lower lobe. No evidence for acute pulmonary embolus. Electronically signed by: Vick Whitt M.D. 03/06/2017 1:04 PM Dictated Date/Time: 03/06/2017 12:49 PM
== END | disposition home or self-care (01) ==
LOC: C.CTS 12:18
PROVIDERS: ATTEND Internal Medicine Infectious Disease
DX: I26.99 Other pulmonary embolism without acute cor pulmonale (principal)

== ENCOUNTER 2017-08-06 12:09 | Inpatient (IN) | payer OTHER ==
[~2017-08-06] VITALS: Ht 175.3 cm; Wt 120.0 kg
[~2017-08-06 12:09] MED LIST changes: -OPTIRAY 320 IV PRN; -OXYC-57 PO; -OXYC1TAB3 PO; -XRL20 PO; -[UNRECOGNIZED DRUG - CODE] SC
[2017-08-06] MEDS ORDERED: XRL20 PO (12:22)
--- NOTE | 2017-08-06 13:42 | DIAGNOSTIC IMAGING REPORT ---
BILATERAL LOWER EXTREMITY VENOUS DOPPLER HISTORY: swelling, worse on left--h/o dvt COMPARISON STUDY: Venous Doppler 12/11/2016. FINDINGS: Slight progressive thrombus within the distal superficial femoral vein, popliteal vein, posterior posterior tibial veins, and peroneal veins which are nonocclusive. This suggests an acute on chronic component. The left common femoral vein is patent. There is improvement in the nonocclusive thrombus within the left proximal to mid superficial femoral vein suggesting chronic thrombus. The left popliteal vein and calf veins are patent. Within the medial left calf there is a 10 x 5 x 2 cm complex fluid collection located between the subcutaneous fat and muscles. This favors a hematoma and could represent a de-gloving injury. IMPRESSION: 1. Slight progressive thrombus within the right lower extremity deep venous systems suggestive of an acute on chronic thrombus. 2. Improvement in the nonocclusive thrombus within the left superficial femoral vein suggesting chronic thrombus. 3. Within the medial left calf there is a 10 x 5 x 2 cm complex fluid collection located between the subcutaneous fat and muscles. This favors a hematoma and could represent a de-gloving injury. Electronically signed by: Vick Whitt M.D. 08/06/2017 1:40 PM Dictated Date/Time: 08/06/2017 1:36 PM
--- NOTE | 2017-08-06 15:07 | History and Physical ---
History & Physical Date & Time of Service: Aug 06, 2017 at 15:04 Chief Complaint: Left Calf Pain/Swelling Primary Care Physician: No Doctor, Assigned History of Present Illness Mr. Vital is a 42 year old man who presents today for increasing swelling in his left lower leg. He is currently on xeralto which he began taking after developing a dvt following TKA in September. He denies any paresthesias or much pain in the left lower extremity or foot. He has not had any trauma to his legs. Pain is mostly when he puts weight on his leg. PmHx - PE, chronic dvt on xeralto, MRSA left knee following TKA, anxiety, hepatic steatosis, carpal tunnel syndrome Past Medical/Surgical History Medical Problems: (1) Chronic pain Status: Chronic (2) Postoperative wound infection Status: Chronic Family History Cancer Diabetes mellitus Social History Smoking Status: Current Some Day Smoker Smokeless Tobacco Use: Yes (chew ) Alcohol Use: socially (1 per month) Drug Use: none Marital Status: Housing status: lives with family Occupational Status: employed Immunizations History of Influenza Vaccine: No History of Tetanus Vaccine?: Yes Tetanus Immunization Date: Aug 20, 2011 History of Pneumococcal: No History of Hepatitis B Vaccine: Yes Multi-Drug Resistant Organisms History of MDRO: Yes Type of MDRO: MRSA Allergies Coded Allergies: Bupropion (Unverified Allergy, Intermediate, HIVES, 08/06/17) SWELLING OF FACE AND LIPS Home Medications Scheduled Amphetamine-Dextroamphetamine 20MG (Adderall 20MG), 20 MG PO BID Aripiprazole (Abilify), 2-4 MG PO DAILY Doxycycline Monohydrate (Monodox), 100 MG PO BID Duloxetine Hcl (Cymbalta), 30 MG PO DAILY Bpmhgneobcj-Lxxjhsqombo-Wrr C- (Glucosamine Chondroitin), 2 CAP PO QAM Lamotrigine (Lamotrigine), 100 MG PO QAM Multivitamin (Multivitamin), 1 TAB PO QAM Rivaroxaban (Xarelto), 20 MG PO DAILY Scheduled PRN Lorazepam (Ativan), 1 MG PO HS PRN for Anxiety Review of Systems Constitutional: No fever, No chills Respiratory: No cough, No shortness of breath Cardiovascular: + edema, No chest pain, No palpitations Abdomen: No pain, No nausea, No vomiting, No diarrhea Genitourinary - Male: No dysuria Hematologic / Lymphatic: No abnormal bleeding/bruising Physical Exam Vital Signs Date Time Temp Pulse Resp B/P (MAP) Pulse Ox O2 Delivery O2 Flow Rate FiO2 08/06/17 14:05 70 18 125/67 97 Room Air 08/06/17 12:10 36.9 82 20 144/81 98 Room Air General: no distress Eyes: normal inspection, PERLL Respiratory: chest non tender, clear to auscultation, normal breath sounds, no respiratory distress, no accessory muscle use Cardiac: regular rate and rhythm, no rub or gallop, no murmur, no edema, no jvd GI/: active bowel sounds, no abd pain or tenderness, soft, non distended Extremities: normal range of motion, normal strength,left lower extremity warm, red and edematous non pitting Neuro/Psych: alert and oriented x 3, normal mood and affect Skin: normal color, dry Diagnostics Diagnostic Radiology BILATERAL LOWER EXTREMITY VENOUS DOPPLER HISTORY: swelling, worse on left--h/o dvt COMPARISON STUDY: Venous Doppler 12/11/2016. FINDINGS: Slight progressive thrombus within the distal superficial femoral vein, popliteal vein, posterior posterior tibial veins, and peroneal veins which are nonocclusive. This suggests an acute on chronic component. The left common femoral vein is patent. There is improvement in the nonocclusive thrombus within the left proximal to mid superficial femoral vein suggesting chronic thrombus. The left popliteal vein and calf veins are patent. Within the medial left calf there is a 10 x 5 x 2 cm complex fluid collection located between the subcutaneous fat and muscles. This favors a hematoma and could represent a de-gloving injury. IMPRESSION: 1. Slight progressive thrombus within the right lower extremity deep venous systems suggestive of an acute on chronic thrombus. 2. Improvement in the nonocclusive thrombus within the left superficial femoral vein suggesting chronic thrombus. 3. Within the medial left calf there is a 10 x 5 x 2 cm complex fluid collection located between the subcutaneous fat and muscles. This favors a hematoma and could represent a de-gloving injury. Impression Assessment and Plan Mr. Vital is a 42 year old male here for increased edema in the left lower extremity. US revealed a chronic thrombus in the right lower extremity and hematoma in the left. Left lower extremity hematoma - admit to med/surg - cbc, inr, ptt - hold xeralto - elevate left leg as much as possible Chronic DVT - consult vascular surgery - heparin gtt Anxiety/depression - continue lorazepam - continue adderal, abilify DVT prophylaxis - no chemoprophylaxis due to bleed Code status - full code Advanced Directives Existing Advance Directive: No Existing Living Will: No Existing Power of Ems Driver: No Existing Health Care Proxy: No Resuscitation Status FULL RESUSCITATION VTE Prophylaxis VTE Risk Assessment Done? Y/N: Yes Risk Level: High Given or contraindicated: Contraindicated Note Attending Attestation & Admit Note: Pt seen/examined, chart reviewed, care plan d/w ANGELICA Henryah Renee. I agree w/ the abad components of her documentation except - 1. doppler of right leg appears to show an ACUTE on chronic DVT 2. consulting vascular surgeon to consider IVC filter placement due to the left leg hematoma and concern that continuing anticoagulation in the short run will worsen the LLE hematoma. Pt c/o LLE pain during my visit only. Denies missing any xarelto doses as of late. Has had numerous VTE events dating back to his 30s. REQUESTS GENETIC TESTING HE HAS 2 KIDS AND WANTS TO KNOW THEIR RISK. VSS o2 sats nl gen - NAD heart - RRR lungs - CTA b/l abd - soft ext - large scar over left knee; left distal leg swollen, warm, erythematous, hyperpigmented; right leg without edema A/P: 1. 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 NEW/acute DVT in the right leg DESPITE chronic xarelto usage 3. NEW/acute hematoma, 10cm in size, in the LLE Certainly a difficult situation given that he needs ongoing anticoagulation but has a hematoma in the left calf region and continuing any anticoagulant may make the left leg hematoma much worse. Also a concern that he developed the new/acute RLE DVT while taking xarelto. This would suggest xarelto treatment failure. Recommended - 1. heparin drip in meantime 2. consult vascular for consideration of temporary IVC filter 3. serial exams and perhaps even serial u/s of hematoma to ensure it is not enlarging while on heparin drip 4. consider heme/onc consult to determine best oral or parenteral anticoagulant after he is released from [facility] AGAIN PATIENT REQUESTS GENETIC TESTING DUE TO RECURRENT VTE - COULD BE DONE AFTER DISCHARGE Won't change his management, however Nate Menard MD
[2017-08-06] MEDS ORDERED: LORAZEPAM 0.5 MG TAB PO PRN (15:15)
[2017-08-06] MEDS ORDERED: LORAZEPAM 0.5 MG TAB PO STA (15:23)
[2017-08-06] MEDS ORDERED: POLYETHYLENE (MIRALAX) 17 GM PACK PO PRN (15:45)
[2017-08-06] MEDS ORDERED: ALUMINUM/MAGNESIUM/SIMETH (MAALOX MAX) 30 ML UDC PO PRN (15:45)
[2017-08-06] MEDS ORDERED: ONDANSETRON INJ 2 MG/ML 2 ML VIAL IV PRN (15:45)
[2017-08-06] MEDS ORDERED: MAGNESIUM HYDROXIDE SUSP 30 ML UDC PO PRN (15:45)
[2017-08-06 15:48] LABS: BASO % 0.4 %; BASO ABS # 0.02 K/uL (0-0.2); COMPLETE YES; EOS % 4.2 %; HEMATOCRIT 39.6 % (42-52); LYMPH % 38.1 %; LYMPH ABS # 1.99 K/uL (1.2-3.4); MEAN CORPUSCULAR HEMOGLOBIN 30.8 pg (25-34); MEAN CORPUSCULAR HGB CONC 35.4 g/dl (32-36); MONO % 8.6 %; NEUT % 48.7 %; PLATELET COUNT 177 K/uL (130-400); RED BLOOD COUNT 4.55 M/uL (4.7-6.1); WHITE BLOOD COUNT 5.22 K/uL (4.8-10.8)
[2017-08-06 15:56] LABS: PARTIAL THROMBOPLASTIN RATIO 1.2; PROTHROMBIN TIME (PATIENT) 11.2 SECONDS (9.0-12.0)
[2017-08-06 16:07] LABS: BUN/CREATININE RATIO 12.5 (10-20); CREATININE 1.05 mg/dl (0.60-1.40); POTASSIUM 3.7 mmol/L (3.5-5.1)
--- NOTE | 2017-08-06 16:52 | EMERGENCY ROOM VISIT NOTE ---
History Report prepared by Suzy: Lino Livingston Under the Supervision of: Dr. Home Zacarias M.D. First contact with patient: 12:21 Chief Complaint: CALF PAIN Stated Complaint: LEFT CALF PAIN/SWELLING History of Present Illness The patient is a 42 year old male who presents to the Emergency Room with complaints of constant left calf pain beginning four days ago. The patient also complains of left leg swelling. He has a history of multiple DVT's and states that his current symptoms feel the same. He is on Xarelto, and denies missing any recent doses. The patient has been on Xarelto for about a year. He notes that he had to be taken off of Xarelto for a knee surgery around 10 months ago, and developed blood clots in his left knee at this time. He has not had a blood clot while on Xarelto to his knowledge. The patient is unsure why he gets frequent blood clots. He has a history of PE as well. He denies recent trauma. The patient denies fevers. He denies any recent prolonged travel. He notes that his right leg is slightly swollen as well. Source of History: patient Onset: Four days ago Position: leg (left calf) Timing: constant Associated Symptoms: No fevers Note: The patient also complains of left leg swelling. Review of Systems See HPI for pertinent positives & negatives. A total of 10 systems reviewed and were otherwise negative. Past Medical & Surgical Medical Problems: (1) Chest pain (2) Chronic deep vein thrombosis (DVT) of right lower extremity (3) Chronic pain (4) Hematoma of left lower extremity (5) Osteoarthritis of knee (6) Postoperative wound infection Family History Cancer Diabetes mellitus Social History Smoking Status: Current Some Day Smoker Alcohol Use: occasionally Drug Use: none Marital Status: Occupation Status: employed Current/Historical Medications Scheduled Amphetamine-Dextroamphetamine 20MG (Adderall 20MG), 20 MG PO BID Aripiprazole (Abilify), 2-4 MG PO DAILY Doxycycline Monohydrate (Monodox), 100 MG PO BID Duloxetine Hcl (Cymbalta), 30 MG PO DAILY Ctbxffahjfi-Rphhislqceq-Ijp C- (Glucosamine Chondroitin), 2 CAP PO QAM Lamotrigine (Lamotrigine), 100 MG PO QAM Multivitamin (Multivitamin), 1 TAB PO QAM Rivaroxaban (Xarelto), 20 MG PO DAILY Scheduled PRN Lorazepam (Ativan), 1 MG PO HS PRN for Anxiety Allergies Coded Allergies: Bupropion (Unverified Allergy, Intermediate, HIVES, 08/06/17) SWELLING OF FACE AND LIPS Physical Exam Vital Signs Date Time Temp Pulse Resp B/P (MAP) Pulse Ox O2 Delivery O2 Flow Rate FiO2 08/06/17 14:05 70 18 125/67 97 Room Air 08/06/17 12:10 36.9 82 20 144/81 98 Room Air Physical Exam GENERAL: Patient is in no acute distress. HEENT: No acute trauma, normocephalic atraumatic, mucous membranes moist, no nasal congestion, no scleral icterus. NECK: No stridor, no adenopathy, no meningismus, trachea is midline. LUNGS: Clear to auscultation bilaterally, no wheeze, no rhonchi, breath sounds equal. HEART: Without murmurs gallops or rubs, regular rate and rhythm. ABDOMEN: Soft, nontender, bowel sounds positive, no hernias, no peritonitis. EXTREMITIES: Swelling to both lower extremities worse on the left. No cellulitis. No evidence for acute trauma. Chronic skin changes noted. NEUROLOGIC: Oriented x 3, no acute motor or sensory deficits, no focal weakness. SKIN: No rash, no jaundice, no diaphoresis. Medical Decision & Procedures ER Provider Diagnostic Interpretation: Radiology results as stated below per my review and radiologist interpretation: BILATERAL LOWER EXTREMITY VENOUS DOPPLER FINDINGS: Slight progressive thrombus within the distal superficial femoral vein, popliteal vein, posterior posterior tibial veins, and peroneal veins which are nonocclusive. This suggests an acute on chronic component. The left common femoral vein is patent. There is improvement in the nonocclusive thrombus within the left proximal to mid superficial femoral vein suggesting chronic thrombus. The left popliteal vein and calf veins are patent. Within the medial left calf there is a 10 x 5 x 2 cm complex fluid collection located between the subcutaneous fat and muscles. This favors a hematoma and could represent a de-gloving injury. IMPRESSION: 1. Slight progressive thrombus within the right lower extremity deep venous systems suggestive of an acute on chronic thrombus. 2. Improvement in the nonocclusive thrombus within the left superficial femoral vein suggesting chronic thrombus. 3. Within the medial left calf there is a 10 x 5 x 2 cm complex fluid collection located between the subcutaneous fat and muscles. This favors a hematoma and could represent a de-gloving injury. Electronically signed by: Vick Whitt M.D. 08/06/2017 1:40 PM Laboratory Results 08/06/17 15:30 Test 08/06/17 15:30 Anion Gap 8.0 mmol/L (3-11) Est Creatinine Clear Calc Drug Dose 114.8 ml/min Estimated GFR () 99.6 Estimated GFR (Non- 85.9 BUN/Creatinine Ratio 12.5 (10-20) Calcium Level 9.0 mg/dl (8.5-10.1) Medications Administered Medications (Trade) Dose Ordered Sig/Pj Route Start Time Stop Time Status Last Admin Dose Admin Lorazepam (Ativan Tab) 0.5 mg NOW STAT PO 08/06/17 15:23 08/06/17 15:24 DC 08/06/17 15:43 0.5 MG ED Course 1225: The patient was evaluated in room C10. A complete history and physical exam was performed. 1424: Upon reexamination the patient is resting comfortably. I discussed results and treatment plan with the patient. He verbalizes agreement and understanding. The patient will be evaluated for further management. Medical Decision The patient is a 42 year old male who presents to the ED with complaints of left calf swelling and pain. Differential diagnoses considered include DVT, hematoma, edema, veinous insufficiency, medication non-compliance and cellulitis. There is no leukocytosis or concerning anemia. No coagulopathy. No significant electrolyte abnormality or kidney failure. Bilateral lower extremity ultrasound shows a hematoma in the left calf 10 cm in size, no acute DVT. The right lower extremity shows evidence for an acute on chronic DVT. The patient presents with leg swelling, he has some left calf pain. He has a new DVT in the right leg and bleeding in the left calf. He is on Xarelto. He has failed Xarelto therapy and is also bleeding from the Xarelto. I do think a hospital stay is warranted given both findings. I spoke to case management, I talked to the patient. The on-call hospitalist was consulted. Medication Reconcilliation Current Medication List: was personally reviewed by me Blood Pressure Screening Patient's blood pressure: Elevated blood pressure Blood pressure disposition: Elevated BP felt to be situational Consults Time Called: 1420 Consulting Physician: Dr. Menard -[facility] – [place] Returned Call: 1424 Discussed the patient's case. The patient will be evaluated for further management. Impression Primary Impression: Right leg DVT Additional Impressions: Hematoma of left lower extremity Anticoagulated Scribe Attestation The scribe's documentation has been prepared under my direction and personally reviewed by me in its entirety. I confirm that the note above accurately reflects all work, treatment, procedures, and medical decision making performed by me. Departure Information Dispostion Being Evaluated By Hospitalist Referrals No Doctor, Assigned (PCP) Patient Instructions My [facility] Problem Qualifiers
[2017-08-06 17:00] VITALS: BP 126/77; PULSE 64; TEMP 37.3; O2SAT 99
[2017-08-06 17:30] VITALS: BP 126/77; PULSE 64; TEMP 37.3; Ht 175.3 cm; Wt 120.0 kg
[2017-08-06 17:48] LABS: BASO % 0.4 %; BASO ABS # 0.02 K/uL (0-0.2); EOS % 5.5 %; HEMATOCRIT 39.8 % (42-52); IG% 0.2 %; LYMPH % 39.8 %; LYMPH ABS # 2.25 K/uL (1.2-3.4); MEAN CELL VOLUME 88.4 fL (80-100); MEAN CORPUSCULAR HEMOGLOBIN 31.3 pg (25-34); MONO % 9.9 %; NEUT % 44.2 %; PLATELET COUNT 174 K/uL (130-400); WHITE BLOOD COUNT 5.66 K/uL (4.8-10.8)
[2017-08-06 17:58] LABS: COMPLETE YES; MEAN CORPUSCULAR HGB CONC 35.4 g/dl (32-36)
[2017-08-06 18:01] LABS: INR 1.1 (0.9-1.1); PARTIAL THROMBOPLASTIN RATIO 1.3; PROTHROMBIN TIME (PATIENT) 11.7 SECONDS (9.0-12.0)
[2017-08-06] MEDS: HEPARIN 25000 UNIT/ D5W 500 ML (PHARMACY PREPARED) IV PRN ×4 (18:34→23:42)
[2017-08-06] MEDS: DOXYCYCLINE HYCLATE 100 MG CAP PO SCH (20:14)
[2017-08-06] MEDS: LORAZEPAM 1 MG TAB PO PRN (20:15)
[2017-08-06] MEDS: ACETAMINOPHEN 325 MG TAB PO PRN (20:15)
[2017-08-06 22:47] VITALS: BP 123/71; PULSE 77; TEMP 36.7; O2SAT 96
[2017-08-07 00:51] LABS: PARTIAL THROMBOPLASTIN RATIO 1.3
[2017-08-07] MEDS ORDERED: HEPARIN IV BOLUS 7,000 UNIT in SYRINGE 0 ML IV STA (01:13)
[2017-08-07] MEDS: HEPARIN 25000 UNIT/ D5W 500 ML (PHARMACY PREPARED) IV PRN ×14 (01:21→22:59)
[2017-08-07 07:29] LABS: HEMATOCRIT 36.9 % (42-52); MEAN CELL VOLUME 88.3 fL (80-100); MEAN CORPUSCULAR HEMOGLOBIN 30.9 pg (25-34); MEAN PLATELET VOLUME 9.1 fL (7.4-10.4); PLATELET COUNT 173 K/uL (130-400); RED BLOOD COUNT 4.18 M/uL (4.7-6.1); WHITE BLOOD COUNT 5.82 K/uL (4.8-10.8)
[2017-08-07 07:43] LABS: PARTIAL THROMBOPLASTIN RATIO 2.1
[2017-08-07 07:45] VITALS: BP 134/80; PULSE 64; TEMP 36.8; O2SAT 98
[2017-08-07 08:05] LABS: BUN/CREATININE RATIO 14.2 (10-20); CALCIUM 8.8 mg/dl (8.5-10.1); CREATININE 1.07 mg/dl (0.60-1.40); POTASSIUM 3.5 mmol/L (3.5-5.1)
[2017-08-07] MEDS: AMPHETAMINE ASP/SULF/DEXTRAMPH 20 MG TAB PO SCH ×3 (08:19→14:07)
[2017-08-07] MEDS: DOXYCYCLINE HYCLATE 100 MG CAP PO SCH ×2 (08:21→21:46)
[2017-08-07] MEDS: ACETAMINOPHEN 325 MG TAB PO PRN ×2 (08:21→18:55)
[2017-08-07] MEDS: MULTIVITAMIN TAB PO SCH (08:22)
[2017-08-07] MEDS: DULOXETINE (CYMBALTA) 30 MG CAP PO SCH (08:22)
[2017-08-07] MEDS: ARIPIprazole 1 MG/ML ORAL SOLN 150 ML BTL PO SCH (09:07)
--- NOTE | 2017-08-07 13:11 | Hospitalist Progress Note ---
Hospitalist Progress Note Date of Service Aug 07, 2017. Subjective Pt evaluation today including: conversation w/ patient, conversation w/ family ( and mom at bedside ), physical exam, lab review, review of studies, review of inpatient medication list Voiding: no voiding problems Patient sitting in bed. No signs of acute distress. Agitated that he is not being seen fast enough. 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 Family questioning why on IV Heparin- discussed w/ patient and family, in understanding. h/o recurrent DVTs. At one point had surgery, discontinued Xarelto for 1 month, then developed PE. Was on Coumadin in the past, but had poor compliance with INR f/u and would like to avoid. h/o PE- denies SOB, no hypoxia, no palpitations, no tachycardia, no pleuritic chest pain, no cough Patient denies any fever, chills, sweats, lightheadedness, dizziness, vision changes, CP, palpitations, edema, SOB, wheezing, cough, abdominal pain, nausea, vomiting, diarrhea, urinary symptoms, melena, numbness/tingling, weakness, muscle/joint pain, anxiety/depression, active bleeding, or new skin discoloration/changes. Medications Current Inpatient Medications Medications (Trade) Dose Ordered Sig/Pj Route Start Time Stop Time Status Last Admin Dose Admin Lorazepam (Ativan Tab) 0.5 mg Q4H PRN PO 08/06/17 15:15 09/05/17 15:14 Acetaminophen (Tylenol Tab) 650 mg Q4H PRN PO 08/06/17 15:45 09/05/17 15:44 08/07/17 08:21 650 MG Al Hydrox/Mg Hydrox/Simethicone (Maalox Max Susp) 15 ml Q4H PRN PO 08/06/17 15:45 09/05/17 15:44 Magnesium Hydroxide (Milk Of Magnesia Susp) 30 ml Q6H PRN PO 08/06/17 15:45 09/05/17 15:44 Polyethylene (Miralax Powder Packet) 17 gm DAILY PRN PO 08/06/17 15:45 09/05/17 15:44 Ondansetron HCl (Zofran Inj) 4 mg Q6H PRN IV 08/06/17 15:45 09/05/17 15:44 Amphetamine Aspartate/ Amphetam Sulf (Amphetamine Aspartate/Amph Sulf/Dextramphet) 20 mg [id number] PO 08/07/17 07:00 08/21/17 06:59 08/07/17 08:19 20 MG Doxycycline Hyclate (Vibramycin Cap) 100 mg BID PO 08/06/17 21:00 08/16/17 20:59 08/07/17 08:21 100 MG Duloxetine HCl (Cymbalta Cap) 30 mg DAILY PO 08/07/17 09:00 09/06/17 08:59 08/07/17 08:22 30 MG Lamotrigine (Lamictal Tab) 100 mg QAM PO 08/07/17 09:00 09/06/17 08:59 08/07/17 08:22 100 MG Lorazepam (Ativan Tab) 1 mg HS PRN PO 08/06/17 15:45 09/05/17 15:44 08/06/17 20:15 1 MG Multivitamins (Multivitamin Tab) 1 tab QAM PO 08/07/17 09:00 09/06/17 08:59 08/07/17 08:22 1 TAB Heparin Sodium (Porcine) 16162 unit/Dextrose 500 ml @ 40 mls/hr [id number] PRN IV 08/06/17 18:00 09/05/17 17:59 08/07/17 08:20 40 MLS/HR Aripiprazole (Abilify Soln) 2 mg DAILY PO 08/07/17 09:00 09/06/17 08:59 08/07/17 09:07 2 MG Objective Vital Signs Date Time Temp Pulse Resp B/P (MAP) Pulse Ox O2 Delivery O2 Flow Rate FiO2 08/07/17 08:20 Room Air 08/07/17 07:50 Room Air CPAP 08/07/17 07:45 36.8 64 20 134/80 (98) 98 Room Air 08/07/17 00:45 CPAP 08/06/17 22:47 36.7 77 16 123/71 (88) 96 Room Air 08/06/17 17:30 37.3 64 18 126/77 Room Air 08/06/17 17:30 Room Air 08/06/17 17:00 37.3 64 18 126/77 (93) 99 Room Air 08/06/17 15:45 72 18 154/101 98 Room Air 08/06/17 14:05 70 18 125/67 97 Room Air Physical Exam General Appearance: no apparent distress, + obese Eyes: normal inspection, PERRL ENT: hearing grossly normal Neck: supple Respiratory/Chest: lungs clear, normal breath sounds, no respiratory distress, no accessory muscle use Cardiovascular: regular rate, rhythm Abdomen: normal bowel sounds, non tender, soft Extremities: + swelling (+LLE ), + pertinent finding (noted erythema to LLE) Neurologic/Psychiatric: alert, normal mood/affect, oriented x 3 Skin: normal color, warm/dry, no rash Laboratory Results Last 24 Hours Test 08/06/17 15:30 08/06/17 17:37 08/07/17 00:16 08/07/17 06:53 White Blood Count 5.22 K/uL 5.66 K/uL 5.82 K/uL Red Blood Count 4.55 M/uL 4.50 M/uL 4.18 M/uL Hemoglobin 14.0 g/dL 14.1 g/dL 12.9 g/dL Hematocrit 39.6 % 39.8 % 36.9 % Mean Corpuscular Volume 87.0 fL 88.4 fL 88.3 fL Mean Corpuscular Hemoglobin 30.8 pg 31.3 pg 30.9 pg Mean Corpuscular Hemoglobin Concent 35.4 g/dl 35.4 g/dl 35.0 g/dl Platelet Count 177 K/uL 174 K/uL 173 K/uL Mean Platelet Volume 9.0 fL 9.0 fL 9.1 fL Neutrophils (%) (Auto) 48.7 % 44.2 % Lymphocytes (%) (Auto) 38.1 % 39.8 % Monocytes (%) (Auto) 8.6 % 9.9 % Eosinophils (%) (Auto) 4.2 % 5.5 % Basophils (%) (Auto) 0.4 % 0.4 % Neutrophils # (Auto) 2.54 K/uL 2.51 K/uL Lymphocytes # (Auto) 1.99 K/uL 2.25 K/uL Monocytes # (Auto) 0.45 K/uL 0.56 K/uL Eosinophils # (Auto) 0.22 K/uL 0.31 K/uL Basophils # (Auto) 0.02 K/uL 0.02 K/uL RDW Standard Deviation 42.5 fL 43.9 fL 43.8 fL RDW Coefficient of Variation 13.3 % 13.5 % 13.5 % Immature Granulocyte % (Auto) 0.0 % 0.2 % Immature Granulocyte # (Auto) 0.00 K/uL 0.01 K/uL Prothrombin Time 11.2 SECONDS 11.7 SECONDS Prothromb Time International Ratio 1.0 1.1 Activated Partial Thromboplast Time 31.0 SECONDS 33.8 SECONDS 35.0 SECONDS Partial Thromboplastin Ratio 1.2 1.3 1.3 Sodium Level 142 mmol/L 141 mmol/L Potassium Level 3.7 mmol/L 3.5 mmol/L Chloride Level 106 mmol/L 105 mmol/L Carbon Dioxide Level 27 mmol/L 28 mmol/L Anion Gap 8.0 mmol/L 8.0 mmol/L Blood Urea Nitrogen 13 mg/dl 15 mg/dl Creatinine 1.05 mg/dl 1.07 mg/dl Est Creatinine Clear Calc Drug Dose 114.8 ml/min 112.7 ml/min Estimated GFR () 99.6 97.3 Estimated GFR (Non- 85.9 84.0 BUN/Creatinine Ratio 12.5 14.2 Random Glucose 101 mg/dl 111 mg/dl Calcium Level 9.0 mg/dl 8.8 mg/dl Test 08/07/17 06:58 Activated Partial Thromboplast Time 55.6 SECONDS Partial Thromboplastin Ratio 2.1 Assessment and Plan Mr. Vital is a 42 year old male here for increased edema in the left lower extremity. US revealed an acute on chronic thrombus in the right lower extremity and hematoma in the left. Recurrent VTE, acute on chronic RLE DVT on chronic anticoagulation, h/o PE: - Admitted to med/surg - Xarelto discontinued; started IV Heparin- will begin Arixtra tomorrow - Per records- negative hypercoagulation workup - Consult vascular surgery, appreciate recommendations- no IVC filter placement at this time - Consult hematology, appreciate recommendations- recommend Arixtra LLE 10 cm hematoma: - Repeat LLE US tomorrow to reassess hematoma - Elevate leg Anxiety, depression: Continue Ativan, Adderall, Abilify, Cymbalta, Lamictal 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 Cabezas: Continue Doxycycline 100 mg BID DVT prophylaxis: Heparin IV Code Status: LEVEL I, FULL Dispo: Discharge to home once medically stable- possible discharge tomorrow once starting Arixtra and remains hemodynamically stable
--- NOTE | 2017-08-07 14:03 | Surgery Consultation ---
Consultation Date of Service Aug 07, 2017. Chief Complaint Hx DVT, LLE hematoma History of Present Illness The patient is a 42 year old male with hx of DVT in past x3, PE, admitted with LLE calf hematoma and possible failure of xarelto, seen in consultation today to eval for possible IVC filter and recommendations regarding DVT. Pt states noted LLE hematoma 4 days ago and came to ED to have eval d/t it not improving. Upon eval, pt found to have 10cm x 5cm hematoma, and US indicated possible acute on chronic DVT in LLE. Pt states pain and edema improved. States he does have some chronic edema from old DVT's in past. States never had hypercoagulable workup, but was told will need anticoaulgation for life. Denies GOLDMAN, fever, chills, cehst pain, SOB, abd pain, N/V, rest pain, claudication, other complaints. States is very active on his feet working. Hgb stable. Vitals Vital Signs Past 12 Hours Date Time Temp Pulse Resp B/P (MAP) Pulse Ox O2 Delivery O2 Flow Rate FiO2 08/07/17 08:20 Room Air 08/07/17 07:50 Room Air CPAP 08/07/17 07:45 36.8 64 20 134/80 (98) 98 Room Air Allergies Coded Allergies: Bupropion (Unverified Allergy, Intermediate, HIVES, 08/06/17) SWELLING OF FACE AND LIPS Home Medications Scheduled Amphetamine-Dextroamphetamine 20MG (Adderall 20MG), 20 MG PO BID Aripiprazole (Abilify), 2-4 MG PO DAILY Doxycycline Monohydrate (Monodox), 100 MG PO BID Duloxetine Hcl (Cymbalta), 30 MG PO DAILY Rgmywsspbcn-Pvnsueatdii-Xjj C- (Glucosamine Chondroitin), 2 CAP PO QAM Lamotrigine (Lamotrigine), 100 MG PO QAM Multivitamin (Multivitamin), 1 TAB PO QAM Rivaroxaban (Xarelto), 20 MG PO DAILY Scheduled PRN Lorazepam (Ativan), 1 MG PO HS PRN for Anxiety Problem List Medical Problems: (1) Chest pain (2) Chronic deep vein thrombosis (DVT) of right lower extremity (3) Chronic pain (4) Hematoma of left lower extremity (5) Osteoarthritis of knee (6) Postoperative wound infection Surgical / Medical History Hx Cardiac Surgery: No Hx Abdominal Surgery: No Hx Cancer Surgery: No Hx Thoracic Surgery: No Hx Orthopedic: Yes Hx Urinary Tract Surgery: No Family History Cancer Diabetes mellitus Social History Smoking Status: Light Tobacco Smoker Hx Tobacco Use In Past Year?: Yes ("VAPOR" SMOKING - "SMALL AMOUNT" - ADVISED ) Hx Alcohol Use - Type & Amnt: Yes Hx Substance Use -Type & Amnt: Yes Review of Systems Constitutional: No chills, No fever, No malaise Skin: No change in color Eyes: No visual changes ENMT: No sore throat Respiratory: No cough, No LUEVANO, No hemoptysis Cardiovascular: No chest pain, No palpitations Gastrointestinal: No abdominal pain, No nausea, No vomiting Neurologic: No dizziness, No headache, No numbness, No tingling Physical Exam Constitutional: General Apperance: heathly-appearing, well-nourished, well-developed, obese Level of Distress: NAD Psychiatric: Mental Status: active & alert, normal mood, normal affect Orientation: oriented except where noted, to time, to place, to person Memory: recent memory normal, remote memory normal Head: normocephalic, atraumatic Eyes: EOM: EOMI ENMT: normal ENT inspection, hearing grossly normal Neck: supple, trachea midline Lungs: Respiratory effort: no dyspnea Auscultation: breath sounds normal, no rales/crackles, no rhonchi Cardiovascular: Apical Impulse: not displaced Heart Auscultation: RRR, no rubs, no gallops Peripheral Pulses: Pulses: full and equal, in all extremities except if noted Bruits: none appreciated Carotid Pulse: normal on the left, normal on the right Brachial Pulses: normal on the left, normal on the right Radial Pulse: normal on the left, normal on the right Femoral Pulse: normal on the left, normal on the right Posterior Tibialis Pulse: normal on the left, normal on the right Dorsalis Pedis Pulse: normal on the left, normal on the right Abdomen: Bowel Sounds: normal Inspection & Palpation: soft, non-distended, no tenderness, guarding & rebound Musculoskeletal: normal strength (5/5 throughout), normal tone Extremities: Upper Right: no cyanosis, no edema, no varicosities Upper Left: no cyanosis, no edema, no varicosities Lower Right: no cyanosis, no edema, no varicosities Lower Left: no cyanosis, no varicosities, no palpable cord, edema (medical calf woth soft hematoma noted. large) Neurologic: Cranial Nerves: grossly intact Sensation: grossly intact Assessment and Plan ASSESSMENT and PLAN: Hx DVT LLE hematoma Pt's US appears to demonstrate chronic DVT in LLE. Hematoma appears stable per pt. Hgb stable on heparin. Apparent plans to switch to arixtra per hematology d/t bleeding on xarelto. No indications for IVC filter at this time , however, should bleeding/worsening hematoma occur on anticoagulation requiring cessation of treatment, will need IVC filter insertion.
--- NOTE | 2017-08-07 14:41 | HEMATOLOGY CONSULTATION ---
DATE OF CONSULTATION: 08/07/2017 REASON FOR CONSULTATION: Possible hypercoagulable state. HISTORY OF PRESENT ILLNESS: Mr. Vital is a very pleasant 42-year-old gentleman who was admitted to [facility] on August 06 with increasing swelling involving his lower left leg. This gentleman has quite a fascinating thrombotic history most recently after undergoing knee surgery to remove infected joint prostheses (MRSA) in September. The area in question involves his just lateral to the mid tibial shaft and measures probably close to 12 x 6 cm in size. The patient had been on Xarelto chronically because of multiple clots. He has never been formally worked up for hypercoagulable state, despite both the patient and his requesting to do so. Interestingly, a couple years prior, he had a spontaneous DVT involving the other extremity. Again, based on his history, he was recommended to continue indefinite anticoagulation. Venous Doppler studies were performed on admission. Impression is as follows, slight progressive thrombus within the right lower extremity deep venous system suggestive of an acute on chronic thrombus, improvement in a nonocclusive thrombus within the left superficial femoral vein suggesting chronic thrombus, and additional within the left medial there is a 10 x 5 x 2 cm complex fluid collection between the subcutaneous fat muscles favoring hematoma. PAST MEDICAL HISTORY: Include a surgical wound infection (MRSA). 1. Bilateral DVTs by history. 2. Chronic pain syndrome. MEDICATIONS: Prior to admission include Xarelto 20 mg p.o. daily, multivitamin 1 tablet p.o. q.a.m., lamotrigine 100 mg p.o. daily, Cymbalta 30 mg p.o. daily, doxycycline 100 mg p.o. b.i.d., Abilify 2-4 mg p.o. daily, and Adderall 20 mg p.o. b.i.d. ALLERGIES: BUPROPION. FAMILY HISTORY: Positive for cancer, diabetes mellitus. SOCIAL HISTORY: The patient chews tobacco and uses alcohol socially. 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 REVIEW OF SYSTEMS: EXTREMITIES: Most notably for a left lower extremity pain and swelling. GENERAL: Denies fevers, chills or sweats. He is moderately obese. SKIN: No rashes or lesions otherwise. No history of dermatoses. HEENT: Negative for headaches, lightheadedness or dizziness. No sinus symptoms, sore throat or dysphagia. No acute visual or hearing deficits. LYMPHATIC: No history of lymphadenopathy or lymphoproliferative disorder. CARDIAC: Negative for angina or palpitations. PULMONARY: Negative for COPD. No shortness of breath, dyspnea or orthopnea. GASTROINTESTINAL: Negative for abdominal pain, nausea, vomiting, diarrhea or constipation, hematochezia or melena stools. GENITOURINARY: No history of prostate disease. No hematuria, dysuria, urinary incontinence. PSYCHIATRIC: Negative for anxiety, depression. ENDOCRINE: Negative for diabetes or thyroid disease. NEUROLOGIC: Negative for seizure, stroke, or migraine headache. HEMATOLOGIC: Positive for thrombophilia. PHYSICAL EXAMINATION: GENERAL: Moderately obese 42-year-old gentleman in no acute distress. VITAL SIGNS: Temperature 36.8, pulse 64, respirations 20, blood pressure 134/80. SKIN: Area of erythema and warmth over the mid tibial shaft; otherwise, no rashes or dermatoses otherwise described. HEENT: Head: Atraumatic, normocephalic. Eyes: PERRLA, EOMI. Sclerae are nonicteric. Nares patent without rhinorrhea or discharge. Throat clear. Tongue midline. Mucous membranes moist. NECK: Bull neck, supple without evidence of thyromegaly. LYMPHATIC: No cervical, supraclavicular, axillary palpable nodes. HEART: Regular rate and rhythm. No clicks, rubs, murmurs, gallops. LUNGS: Clear to auscultation bilaterally. ABDOMEN: Obese, soft, nontender, nondistended, without palpable hepatosplenomegaly. EXTREMITIES: No calf tenderness or swelling. No clubbing, cyanosis or edema otherwise. MUSCULOSKELETAL: Strength and pulses are equal. NEUROLOGIC: Awake, alert and oriented x3. Cranial nerves II-XII are intact. LABORATORY DATA: WBC count 5820, hemoglobin 12.9, and platelet count 173,000. Sodium 141, potassium 3.5, chloride 105, carbon dioxide 28, BUN 15, creatinine 1.07. ASSESSMENT AND PLAN: 1. Acute on chronic right lower extremity deep venous thrombosis. 2. Left spontaneous hematoma. 3. Possible hypercoagulable state. 4. Probable direct thrombin in the patient failure. PLAN: I was asked to see this very pleasant somewhat complex 42-year-old gentleman who was admitted with left lower extremity swelling thought to be attributable to a hematoma. The patient has been on Xarelto for several months because of his thrombotic history. After he developed hematoma, he presented to the emergency room and was subsequently admitted. He underwent Doppler examination which revealed the fluid collection in question involving the left medial calf and a progressive thrombosis in the right lower extremity suggestive of acute on chronic thrombus. Clearly, this would suggest possible Xarelto failure. Primary service is requesting a vascular consultation, I am not terribly enthusiastic about a [place] filters. This gentleman does need an alternate anticoagulant. Because of his work and he admitted noncompliance, he would be better served to receive law molecular weight heparin. I have suggested Arixtra 10 mg subQ daily dose. Hopefully, we would not encounter insurance issues. I would also recommend a full hypercoagulable panel to be reviewed once he is seen in outpatient followup. He is currently on unfractionated heparin and will undergo repeat ultrasound tomorrow morning to evaluate the hematoma before formally switching him to subcutaneous low molecular weight heparin. I agree with management otherwise. I will continue to follow him periodically during his hospital stay and again we will make arrangements to have him seen in the hematology clinic as an outpatient. Thank you very much for allowing me to participate in his care.
[2017-08-07 15:38] VITALS: BP 125/72; PULSE 73; TEMP 36.7
[2017-08-07 22:49] LABS: HEMATOCRIT 38.6 % (42-52)
[2017-08-07 23:21] VITALS: BP 118/63; PULSE 79; TEMP 36.7; O2SAT 96
[2017-08-07] MEDS: LORAZEPAM 1 MG TAB PO PRN (23:35)
[2017-08-08] VITALS (18 sets, daily range): BP systolic 106–155; BP diastolic 45–87; PULSE 68–91; TEMP 36.5–37; O2SAT 93–98
[2017-08-08] MEDS: AMPHETAMINE ASP/SULF/DEXTRAMPH 20 MG TAB PO SCH ×2 (06:37→17:36)
[2017-08-08] MEDS: HEPARIN 25000 UNIT/ D5W 500 ML (PHARMACY PREPARED) IV PRN ×8 (07:04→17:07)
[2017-08-08 07:27] LABS: HEMATOCRIT 36.9 % (42-52); MEAN CELL VOLUME 88.1 fL (80-100); MEAN CORPUSCULAR HEMOGLOBIN 30.8 pg (25-34); MEAN PLATELET VOLUME 8.5 fL (7.4-10.4); PLATELET COUNT 161 K/uL (130-400); RED BLOOD COUNT 4.19 M/uL (4.7-6.1); WHITE BLOOD COUNT 6.32 K/uL (4.8-10.8)
[2017-08-08 07:37] LABS: PARTIAL THROMBOPLASTIN RATIO 1.5
[2017-08-08 08:00] LABS: BUN/CREATININE RATIO 12.3 (10-20); CALCIUM 8.7 mg/dl (8.5-10.1); CREATININE 1.02 mg/dl (0.60-1.40); POTASSIUM 3.7 mmol/L (3.5-5.1)
[2017-08-08] MEDS ORDERED: HEPARIN IV BOLUS 7,000 UNIT in SYRINGE 0 ML IV ONE (08:15)
--- NOTE | 2017-08-08 08:31 | DIAGNOSTIC IMAGING REPORT ---
LEFT CALF ULTRASONOGRAPHY CLINICAL HISTORY: Left leg hematoma COMPARISON STUDY: Ultrasound study dated 08/06/2017 FINDINGS: Within the left medial calf, located between the subcutaneous changes fat and superficial muscular fascia, there is a complex avascular mixed echogenicity mass measuring 13.6 x 7.4 x 2.4 cm. The appearance is most consistent with a hematoma. This appears slightly larger than on the preceding examination. IMPRESSION: Very slight interval increase in the size of the complex avascular fluid collection within the left medial calf. The findings are suggestive of a hematoma. Electronically signed by: Maverick Curry M.D. 08/08/2017 8:29 AM Dictated Date/Time: 08/08/2017 8:26 AM
[2017-08-08] MEDS: DULOXETINE (CYMBALTA) 30 MG CAP PO SCH (08:35)
[2017-08-08] MEDS: DOXYCYCLINE HYCLATE 100 MG CAP PO SCH (08:35)
[2017-08-08] MEDS: MULTIVITAMIN TAB PO SCH (08:36)
[2017-08-08] MEDS: ARIPIprazole 1 MG/ML ORAL SOLN 150 ML BTL PO SCH (08:36)
[2017-08-08] MEDS: ACETAMINOPHEN 325 MG TAB PO PRN ×2 (08:40→16:20)
--- NOTE | 2017-08-08 08:50 | HEME/ONC PROGRESS NOTE ---
DATE: 08/08/2017 DIAGNOSES: 1. Acute on chronic right lower extremity deep vein thrombosis. 2. Left spontaneous hematoma versus cellulitis. 3. Possible hypercoagulable state. 4. Probable direct thrombin inhibitor failure. SUBJECTIVE: Jt is a pleasant 42-year-old gentleman who I saw in consultation yesterday. He had presented with increasing swelling and pain in the left lower extremity. Doppler ultrasound interestingly felt that the lesion in the left lower extremity represented a hematoma. He continues unfractionated heparin for an acute on chronic DVT involving his right lower extremity. On examination this morning, I do not appreciate expansion this early. I felt that the left mid tibial shaft was a bit warmer on palpation. I at this juncture feel that he could be switched over to subcutaneous low molecular weight heparin in lieu of unfractionated heparin. Hypercoag panel has been ordered by the primary staff and will be reviewed most likely once the patient is released. PHYSICAL EXAMINATION: GENERAL: Jt is in no acute distress. VITAL SIGNS: Current temperature 36.8, pulse 75, respirations 16, and blood pressure 110/69. SKIN: Again, mid left tibial shaft, a large area of erythema in the anterior tibial region. Again, expansion is not appreciated; however, the area is certainly a bit warmer. HEENT: Oral mucosa is without erythema or ulceration. NECK: Supple. HEART: Regular rate and rhythm. LUNGS: Clear to auscultation bilaterally. ABDOMEN: Soft, nontender, and nondistended. EXTREMITIES: Trace peripheral edema. Left calf circumference is certainly larger than right. NEUROLOGIC: Grossly intact. LABORATORY DATA: WBC count 6320, hemoglobin 12.9, and platelet count 161,000. Sodium 140, potassium 3.7, chloride 106, carbon dioxide 27, BUN 13, and creatinine 1.02. IMPRESSION: 1. Acute on chronic right lower extremity deep venous thrombosis. 2. Left lower extremity spontaneous hematoma versus cellulitis. 3. Possible hypercoagulable state. 4. Direct thrombin inhibitor failure. PLAN: I had the pleasure of seeing Jt at bedside today again this morning. Direct examination of the left lower extremity reveals a bit more warm, but not necessarily expansion of the hematoma. We will await the ultrasound results. I feel at this juncture to probably safe to go ahead and switch him to subcutaneous Xarelto. Again, I am not terribly enthusiastic about installing a [place] filter. I would consider continuing oral cephalosporin empirically. Again, hypercoag panel will be several days before results available. We will make arrangements for outpatient followup for Jt. I will continue to follow along with you periodically during his hospital stay. Thank you again for allowing me to participate in his care.
[2017-08-08] MEDS ORDERED: VANCOMYCIN INJ 1,000 MG in SODIUM CHLORIDE 0.9% 250ML 250 ML IV SCH (09:43)
[2017-08-08] MEDS ORDERED: VANCOMYCIN CONSULT ACTIVE PRN (09:45)
--- NOTE | 2017-08-08 10:11 | Progress Note ---
Progress Note Date of Service Aug 08, 2017. Progress Note Patient with increasing pain in his hematoma and slightly larger. At this point would recommend filter placement and stopping his anticoagulation until the symptoms resolve. After that he can be anticoagulated again and the filter removed. Will plan on filter placement today.
--- NOTE | 2017-08-08 10:11 | Pharmacy Progress Note ---
Pharmacy Antibiotic Consult Date of Service: Aug 08, 2017. Pharmacy Dosing Scope Pharmacy is consulted to initiate vancomycin IV dosing therapy, order appropriate labs and adjust drug dose/frequency. Subjective The patient is a 42 year old male admitted on Aug 06, 2017 at 15:42. Objective Height (Feet): 5 Height (Inches): 9.00 Weight (Kilograms): 120.000 Lab Results (24hrs): Test 08/07/17 22:43 08/08/17 07:07 08/08/17 09:46 Hemoglobin 13.9 g/dL (14.0-18.0) 12.9 g/dL (14.0-18.0) Hematocrit 38.6 % (42-52) 36.9 % (42-52) White Blood Count 6.32 K/uL (4.8-10.8) Red Blood Count 4.19 M/uL (4.7-6.1) Mean Corpuscular Volume 88.1 fL (80-100) Mean Corpuscular Hemoglobin 30.8 pg (25-34) Mean Corpuscular Hemoglobin Concent 35.0 g/dl (32-36) RDW Standard Deviation 42.7 fL (36.4-46.3) RDW Coefficient of Variation 13.3 % (11.5-14.5) Platelet Count 161 K/uL (130-400) Mean Platelet Volume 8.5 fL (7.4-10.4) Activated Partial Thromboplast Time 37.8 SECONDS (21.0-31.0) Partial Thromboplastin Ratio 1.5 Sodium Level 140 mmol/L (136-145) Potassium Level 3.7 mmol/L (3.5-5.1) Chloride Level 106 mmol/L (98-107) Carbon Dioxide Level 27 mmol/L (21-32) Anion Gap 8.0 mmol/L (3-11) Blood Urea Nitrogen 13 mg/dl (7-18) Creatinine 1.02 mg/dl (0.60-1.40) Est Creatinine Clear Calc Drug Dose 118.2 ml/min Estimated GFR () 103.1 Estimated GFR (Non- 89.0 BUN/Creatinine Ratio 12.3 (10-20) Random Glucose 106 mg/dl (70-99) Calcium Level 8.7 mg/dl (8.5-10.1) Assessment & Plan Assessment: 42 year old who presented with increasing swelling in left lower leg, currently on heparin gtt Developed DVT following TKA in September PMH: PE, chronic dvt, MRSA left knee following TKA, anxiety, hepatic steatosis, carpal tunnel syndrome Currently on doxycycline 100 mg BID getting switched to vancomycin. Patient may be getting filter placed soon. Plan: Loading dose: 2500 mg (21 mg/kg) IV X 1 dose then: Vancomycin 1750 mg (~15 mg/kg) q12H PK: SCr 1.02, CrCl >100, T1/2 ~8 hours Choosing less aggressive dosing/frequency given patient risk for accumulation with BMI > 35 Goal trough level estimate for cellulitis between 10-15 mcg/mL. Trough has been ordered for 08/10 @ 0730 Pharmacy will continue to follow and will adjust dose/frequency as necessary. Thank you
[2017-08-08] MEDS ORDERED: VANCOMYCIN INJ 2,500 MG in SODIUM CHLORIDE 0.9% 500ML 500 ML IV ONE (10:15)
--- NOTE | 2017-08-08 11:26 | Hospitalist Progress Note ---
Hospitalist Progress Note Date of Service Aug 08, 2017. Subjective Pt evaluation today including: conversation w/ patient, physical exam, lab review, review of studies, review of inpatient medication list Voiding: no voiding problems Patient resting in bed. Heating pad to LLE. +LLE pain. Discussed increase in size of hematoma- IVC filter placement planned for today. Patient denies any fever, chills, sweats, lightheadedness, dizziness, vision changes, CP, palpitations, edema, SOB, wheezing, cough, abdominal pain, nausea, vomiting, diarrhea, urinary symptoms, melena, numbness/tingling, weakness, anxiety/depression, active bleeding. Medications Current Inpatient Medications Medications (Trade) Dose Ordered Sig/Pj Route Start Time Stop Time Status Last Admin Dose Admin Lorazepam (Ativan Tab) 0.5 mg Q4H PRN PO 08/06/17 15:15 09/05/17 15:14 Acetaminophen (Tylenol Tab) 650 mg Q4H PRN PO 08/06/17 15:45 09/05/17 15:44 08/08/17 08:40 650 MG Al Hydrox/Mg Hydrox/Simethicone (Maalox Max Susp) 15 ml Q4H PRN PO 08/06/17 15:45 09/05/17 15:44 Magnesium Hydroxide (Milk Of Magnesia Susp) 30 ml Q6H PRN PO 08/06/17 15:45 09/05/17 15:44 Polyethylene (Miralax Powder Packet) 17 gm DAILY PRN PO 08/06/17 15:45 09/05/17 15:44 Ondansetron HCl (Zofran Inj) 4 mg Q6H PRN IV 08/06/17 15:45 09/05/17 15:44 Amphetamine Aspartate/ Amphetam Sulf (Amphetamine Aspartate/Amph Sulf/Dextramphet) 20 mg [id number] PO 08/07/17 07:00 08/21/17 06:59 08/08/17 06:37 20 MG Duloxetine HCl (Cymbalta Cap) 30 mg DAILY PO 08/07/17 09:00 09/06/17 08:59 08/08/17 08:35 30 MG Lamotrigine (Lamictal Tab) 100 mg QAM PO 08/07/17 09:00 09/06/17 08:59 08/08/17 08:36 100 MG Lorazepam (Ativan Tab) 1 mg HS PRN PO 08/06/17 15:45 09/05/17 15:44 08/07/17 23:35 1 MG Multivitamins (Multivitamin Tab) 1 tab QAM PO 08/07/17 09:00 09/06/17 08:59 08/08/17 08:36 1 TAB Heparin Sodium (Porcine) 98212 unit/Dextrose 500 ml @ 47 mls/hr [id number] PRN IV 08/06/17 18:00 09/05/17 17:59 08/08/17 11:14 47 MLS/HR Aripiprazole (Abilify Soln) 2 mg DAILY PO 08/07/17 09:00 09/06/17 08:59 08/08/17 08:36 2 MG Vancomycin HCl (Consult) 1 ea UD PRN N/A 08/08/17 09:45 09/07/17 09:44 Vancomycin HCl 2500 mg/Sodium Chloride 550 ml @ 200 mls/hr NOW ONCE IV 08/08/17 10:15 08/08/17 12:59 Vancomycin HCl 1750 mg/Sodium Chloride 535 ml @ 200 mls/hr Q12H IV 08/08/17 20:00 08/18/17 19:59 Objective Vital Signs Date Time Temp Pulse Resp B/P (MAP) Pulse Ox O2 Delivery O2 Flow Rate FiO2 08/08/17 07:34 36.8 75 16 110/69 (83) 97 Room Air 08/07/17 23:35 Room Air 08/07/17 23:21 36.7 79 16 118/63 (81) 96 Room Air 08/07/17 16:30 Room Air 08/07/17 15:38 36.7 73 16 125/72 (89) Room Air 96.0 Physical Exam General Appearance: no apparent distress, + obese Eyes: normal inspection, PERRL ENT: hearing grossly normal Neck: supple Respiratory/Chest: lungs clear, normal breath sounds, no respiratory distress, no accessory muscle use Cardiovascular: regular rate, rhythm Abdomen: normal bowel sounds, non tender, soft Extremities: + swelling (LLE calf, non-pitting), + pertinent finding (noted warmth and erythema to LLE calf region ) Neurologic/Psychiatric: alert, normal mood/affect, oriented x 3 Skin: normal color, warm/dry, no rash Laboratory Results Last 24 Hours Test 08/07/17 22:43 08/08/17 07:07 Hemoglobin 13.9 g/dL 12.9 g/dL Hematocrit 38.6 % 36.9 % White Blood Count 6.32 K/uL Red Blood Count 4.19 M/uL Mean Corpuscular Volume 88.1 fL Mean Corpuscular Hemoglobin 30.8 pg Mean Corpuscular Hemoglobin Concent 35.0 g/dl RDW Standard Deviation 42.7 fL RDW Coefficient of Variation 13.3 % Platelet Count 161 K/uL Mean Platelet Volume 8.5 fL Activated Partial Thromboplast Time 37.8 SECONDS Partial Thromboplastin Ratio 1.5 Sodium Level 140 mmol/L Potassium Level 3.7 mmol/L Chloride Level 106 mmol/L Carbon Dioxide Level 27 mmol/L Anion Gap 8.0 mmol/L Blood Urea Nitrogen 13 mg/dl Creatinine 1.02 mg/dl Est Creatinine Clear Calc Drug Dose 118.2 ml/min Estimated GFR () 103.1 Estimated GFR (Non- 89.0 BUN/Creatinine Ratio 12.3 Random Glucose 106 mg/dl Calcium Level 8.7 mg/dl Assessment and Plan Mr. Vital is a 42 year old male here for increased edema in the left lower extremity. US revealed an acute on chronic thrombus in the right lower extremity and hematoma in the left. Recurrent VTE, ?acute on chronic RLE DVT on chronic anticoagulation, h/o PE: - Admitted to med/surg - Xarelto discontinued; started IV Heparin- will be d/c'd today (IVC filter placement) - Hypercoagulation workup pending - Consult vascular surgery, appreciate recommendations -- Planning for IVC filter placement on 08/08 due to increased size of hematoma - Consult hematology, appreciate recommendations LLE hematoma w/ erythema and warmth: - Repeat LLE US- slight increase in size - Elevate leg, heating pad - Started IV Vancomycin for prophylaxis and h/o MRSA- started on 08/08 Anxiety, depression: Continue Ativan, Adderall, Abilify, Cymbalta, Lamictal 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 Cabezas: Doxycycline 100 mg BID held due to IV Vancomycin as above DVT prophylaxis: Heparin IV/IVC filter Code Status: LEVEL I, FULL Dispo: Discharge to home once medically stable
[2017-08-08] MEDS ORDERED: MIDAZOLAM HCL 1 MG/ML 2ML VIAL ONE (13:50)
[2017-08-08] MEDS ORDERED: FENTANYL CITRATE INJ 50 MCG/1 ML 2 ML VIAL ONE (13:50)
--- NOTE | 2017-08-08 15:16 | Procedure Note ---
Pre-Mod Sedation Assessment General Date of Moderate Sedation: Aug 08, 2017. Vital Signs: Vital Signs Past 12 Hours Date Time Temp Pulse Resp B/P (MAP) Pulse Ox O2 Delivery O2 Flow Rate FiO2 08/08/17 13:51 36.8 75 16 110/69 97 Room Air 96.0 08/08/17 08:00 Room Air 08/08/17 07:34 36.8 75 16 110/69 (83) 97 Room Air Pre-Sedation Airway Assessment Oral Cavity: WNL Short Thick Neck: No Hx of Sleep Apnea: No Smoking Status: Light Tobacco Smoker Mallampati Classification: Class I ASA Classification: Class II Notes The planned sedation has been discussed with the patient and consent obtained. I have identified the patient, determined the appropriateness of sedation and have assessed the patient immediately prior to the procedure. All medicine(s) and interventions are by my order.
[2017-08-08] MEDS ORDERED: MIDAZOLAM HCL 1 MG/ML 2ML VIAL IV ONE (15:18)
[2017-08-08] MEDS ORDERED: FENTANYL CITRATE INJ 50 MCG/1 ML 2 ML VIAL IV ONE (15:18)
[2017-08-08] MEDS ORDERED: LIDOCAINE HCL 1% 20 ML VIAL INJ ONE (15:19)
--- NOTE | 2017-08-08 15:33 | Procedure Note ---
Post-Moderate Sedation Plan General Date of Moderate Sedation Aug 08, 2017. Vital Signs: Vital Signs Past 12 Hours Date Time Temp Pulse Resp B/P (MAP) Pulse Ox O2 Delivery O2 Flow Rate FiO2 08/08/17 13:51 36.8 75 16 110/69 97 Room Air 96.0 08/08/17 08:00 Room Air 08/08/17 07:34 36.8 75 16 110/69 (83) 97 Room Air Review - Discharge Plan Post Moderate Sedation Plan: On clinical assessment, the patient appears to have tolerated the conscious sedation without complications. Patient is recovering as anticipated. Patient will continue to be monitored by nursing and may be discharged when conscious sedation discharge criteria are met.
[2017-08-08] MEDS ORDERED: OPTIRAY 300 IV ONE (15:36)
[2017-08-08] MEDS: VANCOMYCIN INJ 1,750 MG in SODIUM CHLORIDE 0.9% 500ML 500 ML IV SCH (19:58)
[2017-08-08] MEDS: LORAZEPAM 1 MG TAB PO PRN (21:17)
[2017-08-09 03:15] VITALS: BP 113/70; PULSE 75; TEMP 36.8; O2SAT 97
[2017-08-09 06:29] LABS: HEMATOCRIT 37.5 % (42-52); MEAN CORPUSCULAR HEMOGLOBIN 30.5 pg (25-34); MEAN CORPUSCULAR HGB CONC 34.7 g/dl (32-36); MEAN PLATELET VOLUME 8.6 fL (7.4-10.4); PLATELET COUNT 174 K/uL (130-400); RED BLOOD COUNT 4.26 M/uL (4.7-6.1); WHITE BLOOD COUNT 6.04 K/uL (4.8-10.8)
[2017-08-09] MEDS: AMPHETAMINE ASP/SULF/DEXTRAMPH 20 MG TAB PO SCH ×2 (06:36→13:39)
[2017-08-09 07:01] LABS: BUN/CREATININE RATIO 8.9 (10-20); CREATININE 1.05 mg/dl (0.60-1.40); POTASSIUM 3.6 mmol/L (3.5-5.1)
[2017-08-09 07:49] VITALS: BP 105/71; PULSE 74; TEMP 36.7; O2SAT 95
[2017-08-09 08:02] VITALS: O2SAT 95
[2017-08-09] MEDS: VANCOMYCIN INJ 1,750 MG in SODIUM CHLORIDE 0.9% 500ML 500 ML IV SCH (08:47)
[2017-08-09] MEDS: DULOXETINE (CYMBALTA) 30 MG CAP PO SCH (09:27)
[2017-08-09] MEDS: MULTIVITAMIN TAB PO SCH (09:27)
[2017-08-09] MEDS: ARIPIprazole 1 MG/ML ORAL SOLN 150 ML BTL PO SCH (09:27)
[2017-08-09 11:53] VITALS: BP 120/80; PULSE 74; TEMP 36.7; O2SAT 97
--- NOTE | 2017-08-09 13:00 | Discharge Instructions ---
Discharge Instructions Date of Service Aug 09, 2017. Admission Reason for Admission: Chronic Dvt Of Right Lower Extremity Discharge Discharge Diagnosis / Problem: LLE hematoma; DVT Discharge Goals Goal(s): Decrease discomfort, Improve function, Improve disease control, Learn about illness, Diagnostic testing, Therapeutic intervention, Prevent Disease Progression Activity Recommendations Activity Limitations: per Instructions/Follow-up section (As per vascular surgery recommendations ) . Instructions / Follow-Up Instructions / Follow-Up You were admitted to [facility] due to left lower extremity hematoma (localized blood collection). This was complicated by your lower extremity DVTs and h/o PE, with the need of being on anticoagulation (blood thinner). For this, an inferior vena cava (IVC) filter was placed on 08/08/[address] Serrano- this is to allow the hematoma to resolve without being on anticoagulation for a short period of time. You will need a follow-up appointment with Vascular surgery within 2 months. You have refused to follow-up with Dr. Serrano at this point- however, the office will still being calling you with a follow-up appointment, you may refuse at that time if you still do not want follow-up with Dr. Serrano. Per your request, a referral has been placed to Vascular surgery in [facility]- they will also be calling you to schedule an appointment. Additionally , due to forming a new blood clot on Xarelto, Dr. Urrutia (hematology) has suggested you start Arixtra injections in one week (on 08/16). You will need to follow-up with Dr. Urrutia after discharge for follow-up of hypercoagulable workup and continued anticoagulation management. Medications: STOP Xarelto Start Arixtra injections on 08/16 Percocet 1 tablet every 6 hours as needed for pain control Resume all other regular home medications as prescribed FOLLOW-UPS: Please follow-up with your PCP on August 12 as scheduled Please follow-up with Dr. Urrutia as instructed by him You will need to follow-up with Vascular surgery in [address] Serrano's office will be calling you with a follow-up appointment Per your request, a referral has been placed to Vascular surgery in [facility] Please follow-up/keep all of your subspecialty appointments Current Hospital Diet Patient's current hospital diet: Regular Diet Discharge Diet Recommended Diet: Regular Diet Procedures Procedures Performed: Insertion of Vena Cava Filter, Right Jugular Approach Ultrasound Localization of Right Jugular Vein Fluorosocpy for Positioning Moderate Sedation 7616-2117 14 minutes Pending Studies Studies pending at discharge: no Medical Emergencies . Who to Call and When: Medical Emergencies: If at any time you feel your situation is an emergency, please call 911 immediately. . Non-Emergent Contact Non-Emergency issues call your: Primary Care Provider . . "Provider Documentation" section prepared by Gina Massey. . VTE Core Measure Inpt VTE Proph given/why not?: Contraindicated
[2017-08-09 15:15] VITALS: BP 126/72; PULSE 88; TEMP 36.7; O2SAT 96
[2017-08-09] MEDS ORDERED: OXYC-57 PO (15:17)
--- NOTE | 2017-08-09 15:21 | Discharge Summary ---
Discharge Summary Date of Service Aug 09, 2017. 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 FINDINGS: Slight progressive thrombus within the distal superficial femoral vein, popliteal vein, posterior posterior tibial veins, and peroneal veins which are nonocclusive. This suggests an acute on chronic component. The left common femoral vein is patent. There is improvement in the nonocclusive thrombus within the left proximal to mid superficial femoral vein suggesting chronic thrombus. The left popliteal vein and calf veins are patent. Within the medial left calf there is a 10 x 5 x 2 cm complex fluid collection located between the subcutaneous fat and muscles. This favors a hematoma and could represent a de-gloving injury. IMPRESSION: 1. Slight progressive thrombus within the right lower extremity deep venous systems suggestive of an acute on chronic thrombus. 2. Improvement in the nonocclusive thrombus within the left superficial femoral vein suggesting chronic thrombus. 3. Within the medial left calf there is a 10 x 5 x 2 cm complex fluid collection located between the subcutaneous fat and muscles. This favors a hematoma and could represent a de-gloving injury. Electronically signed by: Vick Whitt M.D. 08/06/2017 1:40 PM Dictated Date/Time: 08/06/2017 1:36 PM The status of this report is Signed. Draft = Not yet reviewed or approved by Radiologist. Signed = Reviewed and approved by Radiologist. LEFT CALF ULTRASONOGRAPHY CLINICAL HISTORY: Left leg hematoma COMPARISON STUDY: Ultrasound study dated 08/06/2017 FINDINGS: Within the left medial calf, located between the subcutaneous changes fat and superficial muscular fascia, there is a complex avascular mixed echogenicity mass measuring 13.6 x 7.4 x 2.4 cm. The appearance is most consistent with a hematoma. This appears slightly larger than on the preceding examination. IMPRESSION: Very slight interval increase in the size of the complex avascular fluid collection within the left medial calf. The findings are suggestive of a hematoma. Electronically signed by: Maverick Curry M.D. 08/08/2017 8:29 AM Dictated Date/Time: 08/08/2017 8:26 AM The status of this report is Signed. Draft = Not yet reviewed or approved by Radiologist. Signed = Reviewed and approved by Radiologist Consultations: Vascular surgery- Dr. Serrano Hematology- Dr. Urrutia Medication Reconciliation New Medications: Fondaparinux Sodium (Arixtra) 10 Mg/0.8 Ml Sandi 10 MG SC DAILY, #10 SYR Begin on 08/16/17 Oxycodone/Acetaminophen 5MG/325MG (Percocet 5MG/325MG) Tab 1 TABLET PO Q6H PRN for Pain for 3 Days, #12 TAB Continued Medications: Amphetamine-Dextroamphetamine 20MG (Adderall 20MG) 1 Tab Tab 20 MG PO BID Aripiprazole (Abilify) 2 Mg Tab 2-4 MG PO DAILY, TAB Doxycycline Monohydrate (Monodox) 100 Mg Cap 100 MG PO BID, CAP Duloxetine Hcl (Cymbalta) 30 Mg Cap 30 MG PO DAILY, CAP Qlkajtbakme-Kngoohbabpm-Ylt C- (Glucosamine Chondroitin) 1 Cap Cap 2 CAP PO QAM Lamotrigine (Lamotrigine) 100 Mg Tab 100 MG PO QAM, TAB Lorazepam (Ativan) 1 Mg Tab 1 MG PO HS PRN for Anxiety, TAB Multivitamin (Multivitamin) Tab 1 TAB PO QAM, TAB Discontinued Medications: Rivaroxaban (Xarelto) 20 Mg Tab 20 MG PO DAILY Discharge Exam Review of Systems: Constitutional: No fever, No chills, No sweats, No weakness, No fatigue ENT: No hearing loss Respiratory: No cough, No shortness of breath, No hemoptysis Cardiovascular: No chest pain, No orthopnea, No edema, No palpitations Abdomen: No pain, No nausea, No vomiting, No diarrhea, No constipation, No GI bleeding Musculoskeletal: + swelling (LLE- improving ), + calf pain (LLE- improving) , No joint pain, No muscle pain Genitourinary - Male: No hematuria, No dysuria Neurologic: No weakness, No numbness/tingling Psychiatric: No depression symptoms Hematologic / Lymphatic: No abnormal bleeding/bruising Integumentary: No rash, No itch, No new/changing skin lesions Physical Exam: General Appearance: no apparent distress, + obese Eyes: normal inspection, PERRL ENT: hearing grossly normal Neck: supple, + pertinent finding (Incision site w/ dressing C/D/I) Respiratory/Chest: lungs clear, normal breath sounds, no respiratory distress, no accessory muscle use Cardiovascular: regular rate, rhythm Abdomen / GI: normal bowel sounds, non tender, soft Extremities: + swelling (non-pitting LLE calf region ), + pertinent finding (Noted warmth/erythema to LLE calf region, soft to palpation ) Neurologic/Psychiatric: alert, normal mood/affect, oriented x 3 Skin: normal color, warm/dry, no rash Hospital Course Admission H&P: Mr. Vital is a 42 year old man who presents today for increasing swelling in his left lower leg. He is currently on xeralto which he began taking after developing a dvt following TKA in September. He denies any paresthesias or much pain in the left lower extremity or foot. He has not had any trauma to his legs. Pain is mostly when he puts weight on his leg. PmHx - PE, chronic dvt on xeralto, MRSA left knee following TKA, anxiety, hepatic steatosis, carpal tunnel syndrome Physical Exam Vital Signs Date Time Temp Pulse Resp B/P (MAP) Pulse Ox O2 Delivery O2 Flow Rate FiO2 08/06/17 14:05 70 18 125/67 97 Room Air 08/06/17 12:10 36.9 82 20 144/81 98 Room Air General: no distress Eyes: normal inspection, PERLL Respiratory: chest non tender, clear to auscultation, normal breath sounds, no respiratory distress, no accessory muscle use Cardiac: regular rate and rhythm, no rub or gallop, no murmur, no edema, no jvd GI/: active bowel sounds, no abd pain or tenderness, soft, non distended Extremities: normal range of motion, normal strength,left lower extremity warm, red and edematous non pitting Neuro/Psych: alert and oriented x 3, normal mood and affect Skin: normal color, dry Hospital Course: Mr. Vital is a 42 year old male here for increased edema in the left lower extremity. US revealed an acute on chronic thrombus in the right lower extremity and hematoma in the left. 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 Serrano due to increased size of hematoma on repeat US On day of discharge, patient expressed concern/agitation with procedure stating, "I felt everything that happened through the procedure. It was not a good experience. I kept telling Dr. Serrano and nothing changed. He told me I would be completely sedated and feel nothing." Talked with RAZIA Munoz about patient's concerns- she stated they have 6 procedures today, but will gladly come talk to the patient when they get a chance. Also, they will call patient with a follow-up in 2 months. Discussed this with patient and told him they may not get a chance to be in to see him until later in the day. Patient stated he did NOT want follow-up with Dr. Serrano and would like to be discharged. Encouraged patient to wait to talk to Dr. Serrano- patient refused. Dr. Serrano's office will still be calling patient about follow-up appointment to ensure he does not want to follow-up. Additionally, case management put in a referral to [facility] per patient's request. 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 Cabezas: Doxycycline 100 mg BID held due to IV Vancomycin as above- resume at discharge DVT prophylaxis: Heparin IV/IVC filter Code Status: LEVEL I, FULL Dispo: Discharge to home Total Time Spent: Greater than 30 minutes This includes examination of the patient, discharge planning, medication reconciliation, and communication with other providers. Discharge Instructions Please refer to the electronic Patient Visit Report (Discharge Instructions) for additional information. Follow-Up Please follow-up with your PCP on August 12 as scheduled Please follow-up with hematology as instructed by Dr. Urrutia You will need to follow-up with Vascular surgery in [address] Serrano's office will be calling you with a follow-up appointment Per your request, a referral has been placed to Vascular surgery in [facility] Please follow-up/keep all of your subspecialty appointments Additional Copies To Merline Mai PA-C
[2017-08-09] MEDS ORDERED: [UNRECOGNIZED DRUG - CODE] SC (15:22)
[2017-08-09 15:31] VITALS: BP 126/72; PULSE 88; TEMP 36.7; O2SAT 96
[2017-08-09] MEDS ORDERED: OXYCODONE/ACETAMINOPHEN 5-325 TAB PO SCH (16:00)
[2017-08-10] MEDS ORDERED: VANCOMYCIN TROUGH ONE (07:30)
--- NOTE | 2017-08-12 09:41 | [facility] Operative Report ---
Operative Report Operative Date Aug 08, 2017. Pre-Operative Diagnosis Contraindication For Anticoagulation Leg Hematoma Post-Operative Diagnosis Same Procedure(s) Performed Insertion of Vena Cava Filter, Right Jugular Approach Ultrasound Localization of Right Jugular Vein Fluorosocpy for Positioning Moderate Sedation 5539-0049 14 minutes Surgeon [employer] Operator Surgeon(s) None Estimated Blood Loss 0 Findings filter upright in infra renal IVC Specimens None Anesthesia Local with sedation Complication(s) None Disposition Indications This is a 42-year-old male with hypercoagulable state and dvt in the past. While on anticoagulation developed a hematoma in his leg. Recommended we stop the oral anticoagulation and place a filter temporarily. I have discussed the risks options and benefits of the procedure with the patient. The patient understands the risks options and benefits and agrees to the procedure. Description of Procedure The patient was brought to the angio suite and placed in the supine position. The right side of the neck was prepped and draped in the usual fashion. The right internal jugular vein was located with ultrasound. It was patent, compressed easily, and had no filling defects. The vein was then punctured under ultrasound visualization. A guidewire was then passed centrally into the inferior vena cava under fluoroscopic guidance. The puncture site was then dilated and the filter sheath inserted. It was passed to the infra renal vena cava. A venacavagram was done which showed no cava clot and an acceptable size. The renal veins were identified. The filter was then passed through the sheath and deployed in the infra renal vena cava in an upright position. Satisfied with the positioning of the filter, the sheath was removed. Pressure was applied to the puncture site. Adequate hemostasis was obtained and a sterile dressing was applied. The patient left the angio suite in good condition and tolerated the procedure well. I attest to the content of the Intraoperative Record and any orders documented therein. Any exceptions are noted below.
[2017-08-12 17:35] LABS: LUPUS ANTICOAGULANT** TC36573X Negative (Negative); PROTEIN C ACTIVITY** TC 1777X 79 % (70-180); PROTEIN S ACT(FUNCT)**1779X 116 % (70-150)
== END 2017-08-09 17:00 | disposition home or self-care (01) | DRG 253 ==
LOC: C.EDB 12:10 → C.MSN 15:42 → EDBEDREQ 15:58 → ENRESERV 16:04
PROVIDERS: ADMIT Internal Medicine; ATTEND Internal Medicine
PROC: 06H03DZ Insertion of Intraluminal Device into Inferior Vena Cava, Percutaneous Approach (ICD-10-PCS; principal; 2017-08-08 15:15)
DX: I82.5Z2 Chronic embolism and thrombosis of unspecified deep veins of left distal lower extremity (principal); D68.59 Other primary thrombophilia; M79.605 Pain in left leg; Z86.718 Personal history of other venous thrombosis and embolism; Z79.01 Long term (current) use of anticoagulants; Z96.651 Presence of right artificial knee joint; Z86.14 Personal history of Methicillin resistant Staphylococcus aureus infection; Z83.3 Family history of diabetes mellitus; Z87.891 Personal history of nicotine dependence; F17.220 Nicotine dependence, chewing tobacco, uncomplicated; M79.81 Nontraumatic hematoma of soft tissue; F41.9 Anxiety disorder, unspecified; F32.9 Major depressive disorder, single episode, unspecified; G89.4 Chronic pain syndrome

== ENCOUNTER 2017-08-15 00:45 | Emergency (ER) | payer OTHER ==
[~2017-08-15] VITALS: Ht 175.3 cm; Wt 118.0 kg
[~2017-08-15 00:45] MED LIST changes: -HYDR4TAB78 PO; -MORP1TAB11 PO; -XRL10 PO; +[UNRECOGNIZED DRUG - CODE] SC
[2017-08-15 00:50] VITALS: TEMP 36.7; Ht 175.3 cm; Wt 118.0 kg
[2017-08-15] MEDS ORDERED: MoRPHine SULFATE 4 MG/ML 1 ML CARP\\VIAL IV STA (00:57)
[2017-08-15] MEDS ORDERED: ONDANSETRON INJ 2 MG/ML 2 ML VIAL IV STA (00:57)
[2017-08-15 01:06] VITALS: O2SAT 97
[2017-08-15] MEDS ORDERED: OPTIRAY 320 IV PRN (01:15)
[2017-08-15 01:23] LABS: BASO % 0.2 %; BASO ABS # 0.02 K/uL (0-0.2); COMPLETE YES; EOS % 2.3 %; HEMATOCRIT 40.6 % (42-52); IG% 0.6 %; LYMPH % 23.7 %; LYMPH ABS # 1.99 K/uL (1.2-3.4); MEAN CELL VOLUME 86.6 fL (80-100); MEAN CORPUSCULAR HEMOGLOBIN 30.5 pg (25-34); MEAN CORPUSCULAR HGB CONC 35.2 g/dl (32-36); MEAN PLATELET VOLUME 8.4 fL (7.4-10.4); MONO % 7.3 %; NEUT % 65.9 %; PLATELET COUNT 235 K/uL (130-400); RED BLOOD COUNT 4.69 M/uL (4.7-6.1)
[2017-08-15 01:26] LABS: ISTAT CREATININE 1.2 mg/dl (0.6-1.3); ISTAT HEMOGLOBIN 13.3 g/dl (14.0-18.0); ISTAT IONIZED CALCIUM 1.19 mmol/l (1.12-1.32)
[2017-08-15 01:40] LABS: ALT/SGPT 34 U/L (12-78); AST/SGOT 16 U/L (15-37); BLOOD UREA NITROGEN 18 mg/dl (7-18); BUN/CREATININE RATIO 14.7 (10-20); CALCIUM 8.9 mg/dl (8.5-10.1); CARBON DIOXIDE 27 mmol/L (21-32); CHLORIDE 103 mmol/L (98-107); CREATININE 1.22 mg/dl (0.60-1.40); GLUCOSE 104 mg/dl (70-99); POTASSIUM 3.5 mmol/L (3.5-5.1); SODIUM 139 mmol/L (136-145)
[2017-08-15 01:42] LABS: ALKALINE PHOSPHATASE 121 U/L (45-117)
[2017-08-15] MEDS ORDERED: HYDROmorphone INJ 1 MG/ML SYR IV STA ×2 (02:09→02:58)
[2017-08-15] MEDS ORDERED: OXYCODONE IR HOME PACK PO ONE (03:00)
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
[2017-08-15] MEDS ORDERED: OXYC1TAB3 PO (03:01)
[2017-08-15 03:19] VITALS: BP 133/80; PULSE 85; O2SAT 97
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
== END 2017-08-15 03:20 | disposition home or self-care (01) ==
LOC: C.EDB 00:46
DX: S20.90XA Unspecified superficial injury of unspecified parts of thorax, initial encounter (principal); S00.01XA Abrasion of scalp, initial encounter; V86.55XA Driver of 3- or 4- wheeled all-terrain vehicle (ATV) injured in nontraffic accident, initial encounter; I82.591 Chronic embolism and thrombosis of other specified deep vein of right lower extremity; G89.29 Other chronic pain; M17.10 Unilateral primary osteoarthritis, unspecified knee; Z79.01 Long term (current) use of anticoagulants; Z87.891 Personal history of nicotine dependence; Z80.9 Family history of malignant neoplasm, unspecified; Z83.3 Family history of diabetes mellitus

== ENCOUNTER → 2017-12-03 | Outpatient (CLI) | payer OTHER ==
[~2017-12-03] MED LIST changes: -ATV/1 PO; +WARF10TA4 PO; +WARF5TAB7 PO; -[UNRECOGNIZED DRUG - CODE] SC
[2017-12-03 12:23] LABS: ALBUMIN 3.9 gm/dl (3.4-5.0); ALT/SGPT 39 U/L (12-78); AST/SGOT 21 U/L (15-37); BLOOD UREA NITROGEN 13 mg/dl (7-18); CALCIUM 9.2 mg/dl (8.5-10.1); CARBON DIOXIDE 24 mmol/L (21-32); CREATININE 1.02 mg/dl (0.60-1.40); GLUCOSE 103 mg/dl (70-99); SODIUM 136 mmol/L (136-145)
[2017-12-03 12:26] LABS: ALKALINE PHOSPHATASE 132 U/L (45-117); CHOLESTEROL 167 mg/dl (0-200); LDL CHOLESTEROL CALCULATED 91 mg/dl; TOTAL PROTEIN 7.8 gm/dl (6.4-8.2)
== END | disposition home or self-care (01) ==
LOC: C.LAB 10:55
PROVIDERS: ATTEND Psychiatry & Neurology Child & Adolescent Psychiatry
DX: Z00.00 Encounter for general adult medical examination without abnormal findings (principal); Z51.81 Encounter for therapeutic drug level monitoring; F31.9 Bipolar disorder, unspecified

== ENCOUNTER → 2017-12-09 | Outpatient (CLI) | payer OTHER ==
--- NOTE | 2017-12-09 13:19 | DIAGNOSTIC IMAGING REPORT ---
CHEST 2 VIEWS ROUTINE HISTORY: 42 years-old Male PRE OP TESTING preoperative exam. No acute chest complaints COMPARISON: Chest radiograph 08/15/2017, chest CT 08/15/2017 TECHNIQUE: PA and lateral views of the chest FINDINGS: Unchanged linear subsegmental atelectasis/scarring of the inferior segment lingula. No pneumothorax, pleural effusion, focal airspace consolidation or overt pulmonary edema. Bones of the chest appear grossly intact. Multilevel endplate spurring about the spine. Cardiac silhouette is within normal limits. IMPRESSION: No acute process. The above report was generated using voice recognition software. It may contain grammatical, syntax or spelling errors. Electronically signed by: Wes Abbott M.D. 12/09/2017 1:17 PM Dictated Date/Time: 12/09/2017 1:16 PM
== END | disposition home or self-care (01) ==
LOC: C.RAD 12:39
PROVIDERS: ATTEND Surgery Vascular Surgery
DX: I82.5Z3 Chronic embolism and thrombosis of unspecified deep veins of distal lower extremity, bilateral (principal); Z95.828 Presence of other vascular implants and grafts

== ENCOUNTER 2020-06-24 14:16 | Observation (INO) ==
[2020-06-24] MEDS ORDERED: ASPIRIN CHEW 324 MG PO STA (14:25)
--- NOTE | 2020-06-24 14:29 | Emergency Department Note ---
History of Present Illness General Chief Complaint: Chest Pain Time Seen by Provider: 06/24/20 14:18 History of Present Illness Provider Complaint: chest pain Onset (ago): day(s) 7 Duration: intermittent Onset: during rest Pain Location: substernal Pain Radiation: none Current Pain Intensity: 8 Quality: + aching, + heaviness, + sharp and + dull Relieved By: + rest Exacerbated By: + exertion, + inspiration and + movement Context: + history of DVT/PE; no recent surgery, no recent travel and no trauma/injury Associated symptoms: no nausea, no vomiting, no dyspnea, no syncope, no palpitations and no fever Treatments prior to arrival: nitroglycerin (No improvement of pain) Patient states he went to [facility] emergency department yesterday where he states "they did nothing and kicked me out". When further pressed the patient does admit [facility] did do blood work EKG and a CAT scan of his chest and he was discharged home after being told everything was within normal limits. Patient was given sublingual nitro prior to arrival in the emergency department which did not help his pain. Home Medications Home Medications Medication Instructions Recorded Confirmed Type hydroxyzine HCl 10 mg tablet 10 mg PO HS PRN tab 06/12/18 06/24/20 History multivitamin 2 tab PO DAILY tab 10/03/18 06/24/20 History lactobacillus combo no.11 15 1 cap PO DAILY 01/14/19 06/24/20 History billion cell sprinkle capsule sulfamethoxazole 800 1 tab PO BID tab 03/19/19 06/24/20 History mg-trimethoprim 160 mg tablet Medical [place] 1 puff INHALATION UD PRN 09/01/19 06/24/20 History aripiprazole [Abilify] 10 mg PO DAILY 09/01/19 06/24/20 History warfarin 5 mg tablet See Rx Instructions PO .COMPLEX 04/21/20 06/24/20 Rx #100 tab dextroamphetamine-amphetamine 60 mg PO DAILY 06/24/20 06/24/20 History [Adderall XR] fluvoxamine 100 mg PO DAILY 06/24/20 06/24/20 History glucos sul [id number] 2 cap PO DAILY 06/24/20 06/24/20 History [Glucosamine Chondroitin] Allergies Allergy/AdvReac Type Severity Reaction Status Date / Time bupropion Allergy Intermediate HIVES Verified 06/24/20 17:17 Past Med/Surg History Medical History (Updated 06/24/20 @ 16:24 by Uzair Muniz) Chronic deep vein thrombosis (DVT) of right lower extremity Chronic pain Robert filter in place No pertinent family history Osteoarthritis of knee Pulmonary embolus and infarction Surgical History (Updated 06/24/20 @ 14:27 by Uzair Muniz) No pertinent past surgical history Social History Smoking Status: Former smoker Hx Alcohol Use: No Hx Substance Use: No Preferred Language: Hebrew Communication Ability: Effective Children'S Service Supervisor Required: No Beliefs That Will Affect Care: None Current Living Situation: Spouse Other Information That Helps Us Care for You: No Feels Safe at Home: Yes Safety Concerns: Feels Safe At This Time Assistive Devices: Glasses Review of Systems A total of 10 systems reviewed and were otherwise negative Physical Exam Vital Signs Vital Signs - 24 hr 06/24/20 14:23 06/24/20 14:25 06/24/20 14:37 Temperature 36.7 C Temperature Source Oral Pulse Rate 70 71 68 Pulse Rate [Apical] Pulse Rate from SpO2 Sensor 71 68 Pulse Rhythm Regular Pulse Rhythm [Apical] Pulse Strength Normal Respiratory Rate 17 24 25 H Respiratory Effort / Characteristics SOB on Exertion Respiratory Depth Normal Respiratory Pattern Blood Pressure 161/100 H 161/100 H 145/79 H Blood Pressure [Right Arm] Blood Pressure Mean 123 120 96 Blood Pressure Mean [Right Arm] Blood Pressure Position [Right Arm] Pulse Oximetry 96 95 95 Oxygen Delivery Method Room Air Sepsis Recent Fever Within 48 Hours No Sepsis New/Unexplained Change in Mental Status No Sepsis Action Taken by Nursing No Action Required 06/24/20 15:00 06/24/20 16:04 06/24/20 16:58 Temperature Temperature Source Pulse Rate 71 74 Pulse Rate [Apical] 72 Pulse Rate from SpO2 Sensor 70 75 Pulse Rhythm Pulse Rhythm [Apical] Regular Pulse Strength Respiratory Rate 29 H 22 26 H Respiratory Effort / Characteristics Non-Labored Respiratory Depth Normal Respiratory Pattern Regular Blood Pressure 148/82 H 106/61 Blood Pressure [Right Arm] 106/61 Blood Pressure Mean 103 71 Blood Pressure Mean [Right Arm] 76 Blood Pressure Position [Right Arm] Sitting Pulse Oximetry 94 95 96 Oxygen Delivery Method Room Air Sepsis Recent Fever Within 48 Hours Sepsis New/Unexplained Change in Mental Status Sepsis Action Taken by Nursing 06/24/20 17:00 06/24/20 17:08 06/24/20 18:37 Temperature Temperature Source Pulse Rate 76 75 Pulse Rate [Apical] 72 Pulse Rate from SpO2 Sensor Pulse Rhythm Pulse Rhythm [Apical] Pulse Strength Respiratory Rate 22 22 20 Respiratory Effort / Characteristics Non-Labored Spontaneous Respiratory Depth Normal Respiratory Pattern Regular Blood Pressure 102/63 102/63 Blood Pressure [Right Arm] 123/70 Blood Pressure Mean 70 Blood Pressure Mean [Right Arm] 87 Blood Pressure Position [Right Arm] Pulse Oximetry 96 96 95 Oxygen Delivery Method Room Air Room Air Sepsis Recent Fever Within 48 Hours Sepsis New/Unexplained Change in Mental Status Sepsis Action Taken by Nursing 06/24/20 19:16 06/24/20 19:30 06/24/20 20:01 Temperature Temperature Source Pulse Rate 66 72 68 Pulse Rate [Apical] Pulse Rate from SpO2 Sensor 64 72 70 Pulse Rhythm Pulse Rhythm [Apical] Pulse Strength Respiratory Rate 24 20 16 Respiratory Effort / Characteristics Respiratory Depth Respiratory Pattern Blood Pressure 117/74 117/61 123/60 Blood Pressure [Right Arm] Blood Pressure Mean 89 71 77 Blood Pressure Mean [Right Arm] Blood Pressure Position [Right Arm] Pulse Oximetry 96 95 95 Oxygen Delivery Method Sepsis Recent Fever Within 48 Hours Sepsis New/Unexplained Change in Mental Status Sepsis Action Taken by Nursing Physical Exam GENERAL: He is oriented to person, place, and time. He appears well-developed and well-nourished. He does not appear distressed. HENT: Exam performed. - Head: Normocephalic and atraumatic. - Right Ear: External ear normal. No mastoid tenderness. - Left Ear: External ear normal. No mastoid tenderness. - Mouth/Throat: The oropharynx is clear and moist. No trismus in the jaw. No dental abscesses or uvula swelling. No oropharyngeal exudate or tonsillar abscesses. EYES: Conjunctivae and EOM are normal. Pupils are equal, round, and reactive to light. Right eye exhibits no discharge. Left eye exhibits no discharge. No scleral icterus. NECK: Normal range of motion. Neck supple. No JVD present. No spinous process tenderness present. No carotid bruit present. No rigidity. No tracheal deviation and normal range of motion present. No Brudzinski's sign and no Kernig's sign noted. CV: Normal rate, regular rhythm, normal heart sounds and intact distal pulses. There is no peripheral edema. Palpable radial pulses bue. PULM/CHEST: Effort normal and breath sounds normal. No respiratory distress. No stridor. He has no wheezes. He has no rales. ABD: The abdomen is soft and he is morbidly obese. Bowel sounds are normal. He has no distension. No mass is present. There is no tenderness. There is no rebound, no guarding, no Beard's sign and no tenderness at McBurney's point. Rovsig negative. MUSC/SKEL: Normal range of motion. There is no peripheral edema, tenderness or deformity. LYMPH: No cervical adenopathy. NEURO: He is alert and oriented to person, place, and time. He has normal strength. No cranial nerve deficit or sensory deficit. Coordination and gait normal. GCS eye subscore is 4. GCS verbal subscore is 5. GCS motor subscore is 6 . Cerebellar tests wnl. SKIN: Skin is warm and dry. He is not diaphoretic. PSYCH: He has a normal mood and affect. Behavior is normal. Judgment and thought content normal. Course Course 1418: The patient was evaluated in room A11. A complete history and physical exam was performed. Cardiac monitoring: An order was placed for continuous cardiac monitoring. The monitor shows a rate of 70 with sinus rhythm 1620: Vital signs stable. Labs within normal limits with exception of a subtherapeutic INR. Imaging within normal limits. Patient is supposed be on Coumadin. Records were obtained from [facility]. Patient was seen yesterday for similar chest pain. Patient had blood work done there which showed negative troponin. He also had a CTA of the chest done which showed no evidence of dissection or large central PE. Patient will be discharged with follow-up PCP to adjust his Coumadin. Discharged with analgesia. DISCHARGE - Plan of care discussed with patient and questions answered. The patient was given both verbal and printed discharge instructions. The patient verbalized understanding and ability to comply. The patient is to seek outpatient follow up as noted in the discharge instructions. The patient verbalized understanding and ability to comply. The patient is discharged in stable condition. The patient was instructed to return for worsening symptoms. 1631: Spoke with the patient's Purnima at [phone] after she requested to speak with me via telephone to the nursing staff. I explained the negative results of the patient's work-up today here in the emergency department. I also explained to her the results of the work-up done yesterday at [facility] which were also negative including CTA of the chest. I explained to the that the patient's Coumadin level is low and she stated that the patient has missed a few doses of his Coumadin and that is most likely why his level is low. I explained to her that there is no medical abnormality found on the work-up today or the work-up that was found at [facility] after reviewing the chart from [facility]. She stated she did not feel like she could take care of the patient at home. I offered to try to arrange patient to be admitted to a group home or for inpatient rehab which she was not happy with that option either. 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 After a very very long discussion with the , we decided that the patient will be discharged with a home pack of narcotic pain medication and a prescription for muscle relaxer and the anti- inflammatories are originally prescribed to him. 1720: Patient was about to be discharged again from the emergency department and then began reporting extreme pain again and did not feel comfortable leaving the emergency department. When the patient got up to move he started having pain in his chest. It appears that all his pain is with movement again aligning with the most likely diagnosis of musculoskeletal chest pain. I again offered him to be placed in a group home or rehab facility again and the patient is declining. IV was removed from the patient as he was supposed to be discharged. We will replace the IV and rescan the patient as he is complaining of too much pain. Given the patient's reported subjective chest pain we will rule out dissection as well as conducted delta troponin. Valium ordered for the patient. 1741: I went to go reassess the patient and entered the room without knocking and saw him lying comfortably in the bed speaking with the family member at bedside he was in no acute distress and not reporting any chest pain since he has been told he will be in the emergency department longer. 1823: Vital signs continue to be stable. CTA of the chest and abdomen were completely within normal limits. Repeat troponin within normal limits. On reassessment the patient is resting in bed comfortably and laughing. I explained to them that we conducted an extremely extensive work-up here in the emergency department today and appears that his pain is musculoskeletal. I explained to him that his pain would reside in a few days and there is no need to medically admit him to the hospital at this time. Patient thanked me for conducting an extremely extensive work-up and will be discharged from the hospital. 1915: Vital signs remain completely stable. At time of discharge again the patient is again refusing to leave. Charge nurse Miguel A went to go speak with the patient is patient is demanding to speak with sas administrator on-call. I went to go reassess the patient again and he is in bed resting comfortably texting on the phone. Patient called me a "smart ass" and demanded a "better doctor". Patient is refusing to leave the hospital at this time. Discussed with ED Director who suggested we admit the patient to medicine for pain control. Repeat EKG done in 1911 showed sinus rhythm with rate of 68 SC QRS and QTc intervals are within normal limits. No ST elevation or ST depression. During his time in the emergency department today, the patient has been under my care for approximately 5 hours and has received CTA of the chest, CTA of the abdomen, 2 sets of troponins, 2 EKGs, and extensive blood work which is all been within normal limits. Patient is requesting different physician at this time. Will contact the [facility] hospitalist team to admit him. Dr. Erazo notified 1999: Vital signs stable. Patient used urinal on his own accord and on reassesment is playing on his phone in no distress. Patient is angry and states "I am firing you!". I explained to him that the hospitalist team has been con sulted for admission. He states he hates this hospital and being admitted here which is why he likes to go to [facility], which coincidentally is where he was yesterday and discharged from. Administered Medications Discontinued Medications Acetaminophen/Codeine Phosphate (Tylenol #3 Home Pack) 1 homepack PO NOW ONE Stop: 06/24/20 16:37 Last Admin: 06/24/20 16:58 Dose: 1 homepack Documented by: [id number] Acetaminophen/Codeine Phosphate (Acetaminophen W/Codeine #3 1 Tab) 1 tab PO NOW ONE Stop: 06/24/20 16:37 Last Admin: 06/24/20 16:58 Dose: 1 tab Documented by: [id number] Aspirin (Aspirin Chew 324 Mg) 324 mg PO NOW STA Stop: 06/24/20 14:26 Last Admin: 06/24/20 14:57 Dose: Not Given Documented by: [id number] Diazepam (Diazepam 5 Mg/Ml Inj 10ml Vial) 5 mg IV NOW STA Stop: 06/24/20 17:22 Last Admin: 06/24/20 17:46 Dose: 5 mg Documented by: [id number] Sodium Chloride (Nss 1000ml) 1,000 mls @ 999 mls/hr IV .Q1H1M ONE Stop: 06/24/20 16:08 Last Infusion: 06/24/20 18:07 Dose: 0 mls/hr Documented by: [id number] Admin: 06/24/20 15:00 Dose: 999 mls/hr Documented by: [id number] Ioversol (Optiray 320 125ml) 120 ml IV ONCE ONE Stop: 06/24/20 17:56 Last Admin: 06/24/20 17:55 Dose: 120 ml Documented by: [id number] Ketorolac Tromethamine (Ketorolac Tromethamine 15 Mg/Ml Vial) 15 mg IV NOW STA Stop: 06/24/20 14:41 Last Admin: 06/24/20 14:58 Dose: 15 mg Documented by: [id number] Nitroglycerin (Nitroglycerin Sl 0.4 Mg/Tab Tab) 0.4 mg SL PRN PRN PRN Reason: Chest Pain Stop: 07/24/20 14:47 Last Admin: 06/24/20 14:53 Dose: 0.4 mg Documented by: [id number] Medical Decision Making Laboratory Data Result diagrams: 06/24/20 14:37 06/24/20 14:37 Labs: Lab Results 06/24/20 06/24/20 06/24/20 Range/Units 14:37 14:37 14:37 WBC 8.92 (4.8-10.8) K/uL RBC 5.04 (4.7-6.1) M/uL Hgb 15.6 (14.0-18.0) g/dL Hct 45.0 (42-52) % MCV 89.3 (80-100) fL MCH 31.0 (25-34) pg MCHC 34.7 (32-36) g/dL RDW Std Deviation 48.9 H (36.4-46.3) fL RDW Coeff of Rebeka 15.1 H (11.5-14.5) % Plt Count 190 (130-400) K/uL MPV 8.7 (7.4-10.4) fL Immature Gran % (Auto) 0.2 % Neut % (Auto) 66.9 % Lymph % (Auto) 23.0 % Upton % (Auto) 7.6 % Eos % (Auto) 2.0 % Baso % (Auto) 0.3 % Neut # (Auto) 5.96 (1.4-6.5) K/uL Lymph # (Auto) 2.05 (1.2-3.4) K/uL Upton # (Auto) 0.68 H (0.11-0.59) K/uL Eos # (Auto) 0.18 (0-0.5) K/uL Baso # (Auto) 0.03 (0-0.2) K/uL Immature Gran # (Auto) 0.02 (0.00-0.02) K/uL PT 15.1 H (9.0-12.0) Seconds INR 1.5 H (0.9-1.1) APTT 30.7 (21.0-31.0) Seconds PTT Ratio 1.1 Sodium 139 (136-145) mmol/L Potassium 3.8 (3.5-5.1) mmol/L Chloride 106 (98-107) mmol/L Carbon Dioxide 26 (21-32) mmol/L Anion Gap 7.0 (3-11) BUN 18 (7-18) mg/dl Creatinine 1.37 (0.6-1.4) mg/dl Est Cr Clr Drug Dosing 92.9 ml/min Est GFR ( Amer) 71.2 Est GFR (Non-Af Amer) 61.4 BUN/Creatinine Ratio 12.9 (10-20) Glucose 128 H (70-99) mg/dl Calcium 9.4 (8.5-10.1) mg/dl Total Bilirubin 0.3 (0.2-1) mg/dl Direct Bilirubin < 0.1 (0-0.2) mg/dl AST 20 (15-37) U/L ALT 42 (12-78) U/L Alkaline Phosphatase 115 (45-117) U/L Troponin I < 0.015 (0-0.045) ng/ml Total Protein 7.2 (6.4-8.2) gm/dl Albumin 3.6 (3.4-5.0) gm/dl Lipase 276 (73-393) U/L 06/24/20 Range/Units 17:44 WBC (4.8-10.8) K/uL RBC (4.7-6.1) M/uL Hgb (14.0-18.0) g/dL Hct (42-52) % MCV (80-100) fL MCH (25-34) pg MCHC (32-36) g/dL RDW Std Deviation (36.4-46.3) fL RDW Coeff of Rebeka (11.5-14.5) % Plt Count (130-400) K/uL MPV (7.4-10.4) fL Immature Gran % (Auto) % Neut % (Auto) % Lymph % (Auto) % Upton % (Auto) % Eos % (Auto) % Baso % (Auto) % Neut # (Auto) (1.4-6.5) K/uL Lymph # (Auto) (1.2-3.4) K/uL Upton # (Auto) (0.11-0.59) K/uL Eos # (Auto) (0-0.5) K/uL Baso # (Auto) (0-0.2) K/uL Immature Gran # (Auto) (0.00-0.02) K/uL PT (9.0-12.0) Seconds INR (0.9-1.1) APTT (21.0-31.0) Seconds PTT Ratio Sodium (136-145) mmol/L Potassium (3.5-5.1) mmol/L Chloride (98-107) mmol/L Carbon Dioxide (21-32) mmol/L Anion Gap (3-11) BUN (7-18) mg/dl Creatinine (0.6-1.4) mg/dl Est Cr Clr Drug Dosing ml/min Est GFR ( Amer) Est GFR (Non-Af Amer) BUN/Creatinine Ratio (10-20) Glucose (70-99) mg/dl Calcium (8.5-10.1) mg/dl Total Bilirubin (0.2-1) mg/dl Direct Bilirubin (0-0.2) mg/dl AST (15-37) U/L ALT (12-78) U/L Alkaline Phosphatase (45-117) U/L Troponin I < 0.015 (0-0.045) ng/ml Total Protein (6.4-8.2) gm/dl Albumin (3.4-5.0) gm/dl Lipase (73-393) U/L Imaging Data Chest x-ray: Radiologist's impression: TWO VIEW CHEST CLINICAL HISTORY: Atypical chest pain. FINDINGS: AP and lateral chest radiographs are compared to chest x-ray and chest CT dated 08/15/2017. The examination is degraded by large body habitus and apical lordotic positioning on the AP view. The heart is top normal for projection. The mediastinal contour is within normal limits. Atelectasis is noted at the lung bases. The lungs and pleural spaces are otherwise clear. Ther e is no pneumothorax. The bony thorax appears intact. IMPRESSION: No active disease in the chest. ACT 112: Negative or not required by law. Electronically signed by: Home Bacon M.D. 06/24/2020 3:28 PM Dictated: 06/24/20 1527 Transcribed: 06/24/[address] scan - chest: Radiologist's impression: CT OF THE CHEST WITHOUT AND WITH WITH IV CONTRAST CLINICAL HISTORY: Chest pain radiating to the back. Possible thoracic aortic dissection COMPARISON STUDY: Chest x-ray dated 06/24/2020, chest CT dated 08/15/2017 TECHNIQUE: Unenhanced images were obtained through the thorax. Following the IV administration of 120 mL of Optiray-320, CT angiography of the thorax was performed from the thoracic inlet to the lung bases. Images were acquired. Images are reviewed in the axial, sagittal, and coronal planes. IV contrast was administered without complication. A dose lowering technique was utilized adhering to the principles of ALARA. CT DOSE: 3357.92 mGy.cm FINDINGS: Thyroid: Imaged portions of the thyroid gland are normal in appearance. Thoracic aorta: Noncontrast images reveal no evidence of acute thoracic he matoma. Postcontrast images reveal no evidence of aneurysm. There are no intimal flaps to indicate acute aortic dissection. Pulmonary vasculature: The pulmonary trunk is normal in caliber. There are no central filling defects identified to suggest pulmonary embolus. Note that this examination was not protocoled for the evaluation of pulmonary emboli. HEART: The heart is normal in size. There is no pericardial effusion Lungs and pleural spaces: There are no pleural effusions. There is no pneum othorax. There are dependent atelectatic changes. There are stable tiny typically benign perifissural nodules. Mediastinum: There is no evidence of pathologic mediastinal lymphadenopathy Ailyn: There is known to pathologic hilar adenopathy Axilla: There is no evidence of pathologic axillary lymphadenopathy Upper abdomen: Partially visualized upper abdominal viscera is within normal limits. Skeletal structures: There are no lytic or blastic osseous lesions. IMPRESSION: 1. No acute intrathoracic findings 2. No evidence of thoracic aortic aneurysm or dissection 3. No evidence of focal pulmonary consolidation. No evidence of pneumothorax. ACT 112: Negative or not required by law. Electronically signed by: Maverick Curry M.D. 06/24/2020 6:08 PM Dictated: 06/24/201802 Transcribed: 06/24/201802 CT scan - abdomen: Radiologist's impression: CT angio abdomen pelvis w con CT DOSE: CLINICAL HISTORY: Chest and abdominal pain. Possible dissection. TECHNIQUE: CT angiography abdomen and pelvis was performed in a dynamic helical fashion during intravenous administration of 120 cc of Optiray 320. MIP images were acquired. A dose lowering technique was utilized adhering to the principles of ALARA. COMPARISON STUDY: CT scan performed 08/15/2017 FINDINGS: The visualized portions lung bases reveal dependent atelectatic change. No hepatic masses are visualized on this arterial phase study. No splenic masses are visualized. No pancreatic masses are visualized. No adrenal masses are visualized. No solid renal masses are visualized. There is a 3 mm lower pole left renal cyst. There is no hydronephrosis. There is no evidence of abdominal aortic aneurysm or dissection. There are no transition zones to indicate bowel obstruction. There is no evidence of acute diverticulitis. There are no findings to indicate acute appendicitis. There is no free air. There is no ascites. There is no evidence of pathologic adenopathy. There is no evidence of aortic or iliac artery stenosis. There is no evidence of renal artery stenosis. There is no evidence of celiac or superior mesenteric artery stenosis. Inferior mesenteric artery is patent. No destructive skeletal lesions are visualized. 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 There is foreshortening of the right femoral neck. The findings are consistent with either development of hip dysplasia, or old slipped capital femoral epiphysis. IMPRESSION: 1. No acute intra-abdominal or pelvic findings 2. No evidence of abdominal aortic aneurysm or dissection. 3. No evidence of celiac, superior mesenteric or renal artery stenosis. 4. No evidence of bowel obstruction. No evidence of free air. ACT 112: Negative or not required by law. Electronically signed by: Maverick Curry M.D. 06/24/2020 6:13 PM Dictated: 06/24/201807 Transcribed: 06/24/201807 ECG Data Indication: chest pain Rate (beats per minute): 69 Rhythm: normal sinus Findings: no ST depression and no ST elevation MDM Narrative 1418: The patient was evaluated in room A11. A complete history and physical exam was performed. Cardiac monitoring: An order was placed for continuous cardiac monitoring. The monitor shows a rate of 70 with sinus rhythm 1620: Vital signs stable. Labs within normal limits with exception of a subtherapeutic INR. Imaging within normal limits. Patient is supposed be on Coumadin. Records were obtained from [facility]. Patient was seen yesterday for similar chest pain. Patient had blood work done there which showed negative troponin. He also had a CTA of the chest done which showed no evidence of dissection or large central PE. Patient will be discharged with follow-up PCP to adjust his Coumadin. Discharged with analgesia. DISCHARGE - Plan of care discussed with patient and questions answered. The patient was given both verbal and printed discharge instructions. The patient verbalized understanding and ability to comply. The patient is to seek outpatient follow up as noted in the discharge instructions. The patient verbalized understanding and ability to comply. The patient is discharged in stable condition. The patient was instructed to return for worsening symptoms. 1631: Spoke with the patient's Purnima at [phone] after she requested to speak with me via telephone to the nursing staff. I explained the negative results of the patient's work-up today here in the emergency department. I also explained to her the results of the work-up done yesterday at [facility] which were also negative including CTA of the chest. I explained to the that the pa tient's Coumadin level is low and she stated that the patient has missed a few doses of his Coumadin and that is most likely why his level is low. I explained to her that there is no medical abnormality found on the work-up today or the work-up that was found at [facility] after reviewing the chart from [facility]. She stated she did not feel like she could take care of the patient at home. I offered to try to arrange patient to be admitted to a group home or for inpatient rehab which she was not happy with that option either. 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 After a very very long discussion with the , we decided that the patient will be discharged with a home pack of narcotic pain medication and a prescription for muscle relaxer and the anti- inflammatories are originally prescribed to him. 1720: Patient was about to be discharged again from the emergency department and then began reporting extreme pain again and did not feel comfortable leaving the emergency department. When the patient got up to move he started having pain in his chest. It appears that all his pain is with movement again aligning with the most likely diagnosis of musculoskeletal chest pain. I again offered him to be placed in a group home or rehab facility again and the patient is declining. IV was removed from the patient as he was supposed to be discharged. We will replace the IV and rescan the patient as he is complaining of too much pain. Given the patient's reported subjective chest pain we will rule out dissection as well as conducted delta troponin. Valium ordered for the patient. 1741: I went to go reassess the patient and entered the room without knocking and saw him lying comfortably in the bed speaking with the family member at bedside he was in no acute distress and not reporting any chest pain since he has been told he will be in the emergency department longer. 1823: Vital signs continue to be stable. CTA of the chest and abdomen were completely within normal limits. Repeat troponin within normal limits. On reassessment the patient is resting in bed comfortably and laughing. I explained to them that we conducted an extremely extensive work-up here in the emergency department today and appears that his pain is musculoskeletal. I explained to him that his pain would reside in a few days and there is no need to medically admit him to the hospital at this time. Patient thanked me for conducting an extremely extensive work-up and will be discharged from the hospital. 1916: Vital signs remain completely stable. At time of discharge again the sweetie ent is again refusing to leave. Charge nurse Miguel A went to go speak with the patient is patient is demanding to speak with sas administrator on-call. I went to go reassess the patient again and he is in bed resting comfortably texting on the phone. Patient called me a "smart ass" and demanded a "better doctor". Patient is refusing to leave the hospital at this time. Discussed with ED Director who suggested we admit the patient to medicine for pain control. Repeat EKG done in 1911 showed sinus rhythm with rate of 68 SC QRS and QTc intervals are within normal limits. No ST elevation or ST depression. During his time in the emergency department today, the patient has been under my care for approximately 5 hours and has received CTA of the chest, CTA of the abdomen, 2 sets of troponins, 2 EKGs, and extensive blood work which is all been within normal limits. Patient is requesting different physician at this time. Will contact the [facility] hospitalist team to admit him. Dr. Erazo notified 1999: Vital signs stable. Patient used urinal on his own accord and on reassesment is playing on his phone in no distress. Patient is angry and states "I am firing you!". I explained to him that the hospitalist team has been consulted for admission. He states he hates this hospital and being admitted here which is why he likes to go to [facility], which coincidentally is where he was yesterday and discharged from. Impression & Plan Chest pain, Subtherapeutic international normalized ratio (INR) Discharge Plan Visit Data Chief Complaint: Chest Pain ED Provider: Uzair Muniz Discharge Problem: Chest pain, Subtherapeutic international normalized ratio (INR) Patient Disposition: Admitted As Inpatient Discharge Instructions Interventions: ED Discharge Assessment Last Done: 06/24/20 21:47 Discharge Problem: Chest pain Qualifiers: Chest pain type: unspecified Qualified Code(s): R07.9 - Chest pain, unspecified
[2020-06-24] MEDS ORDERED: KETOROLAC TROMETHAMINE 15 MG/ML VIAL IV STA (14:40)
[2020-06-24 14:46] LABS: Basophils # (auto) 0.03 K/uL (0-0.2); Basophils % (auto) 0.3 %; Eosinophils # (auto) 0.18 K/uL (0-0.5); Hemoglobin 15.6 g/dL (14.0-18.0); Immature Granulocytes # (auto) 0.02 K/uL (0.00-0.02); Immature Granulocytes % (auto) 0.2 %; Lymphocytes # (auto) 2.05 K/uL (1.2-3.4); Mean Corpuscular Hgb Conc 34.7 g/dL (32-36); Mean Corpuscular Volume 89.3 fL (80-100); Mean Platelet Volume 8.7 fL (7.4-10.4); Monocytes # (auto) 0.68 K/uL (0.11-0.59); Monocytes % (auto) 7.6 %; Neutrophils # (auto) 5.96 K/uL (1.4-6.5); Neutrophils % (auto) 66.9 %; Platelet Count 190 K/uL (130-400); RDW Coefficient of Variation 15.1 % (11.5-14.5); RDW Standard Deviation 48.9 fL (36.4-46.3); Red Blood Count 5.04 M/uL (4.7-6.1); White Blood Count 8.92 K/uL (4.8-10.8)
[2020-06-24] MEDS ORDERED: NITROGLYCERIN SL 0.4 MG/TAB TAB SL PRN ×2 (14:48→22:24)
[2020-06-24 14:58] LABS: INR 1.5 (0.9-1.1); Partial Thromboplastin Ratio 1.1; Partial Thromboplastin Time 30.7 Seconds (21.0-31.0); Prothrombin Time 15.1 Seconds (9.0-12.0)
[2020-06-24 15:05] LABS: Alanine Aminotransferase 42 U/L (12-78); Albumin Level 3.6 gm/dl (3.4-5.0); Aspartate Aminotransferase 20 U/L (15-37); BUN Creatinine Ratio 12.9 (10-20); Bilirubin Direct < 0.1 mg/dl (0-0.2); Blood Urea Nitrogen 18 mg/dl (7-18); Calcium 9.4 mg/dl (8.5-10.1); Carbon Dioxide 26 mmol/L (21-32); Chloride 106 mmol/L (98-107); Creatinine Clr Calc Pharmacy 92.9 ml/min; Est GFR (African American) 71.2; Est GFR (Non-African American) 61.4; Glucose 128 mg/dl (70-99); Lipase 276 U/L (73-393); Potassium 3.8 mmol/L (3.5-5.1); Sodium 139 mmol/L (136-145)
[2020-06-24] MEDS ORDERED: SODIUM CHLORIDE 0.9% 1000ML 1,000 ML IV ONE (15:08)
[2020-06-24 15:11] LABS: Alkaline Phosphatase 115 U/L (45-117); Bilirubin,Total 0.3 mg/dl (0.2-1); Total Protein 7.2 gm/dl (6.4-8.2); Troponin I < 0.015 ng/ml (0-0.045)
--- NOTE | 2020-06-24 15:29 | XRay Report ---
TWO VIEW CHEST CLINICAL HISTORY: Atypical chest pain. FINDINGS: AP and lateral chest radiographs are compared to chest x-ray and chest CT dated 08/15/2017. The examination is degraded by large body habitus and apical lordotic positioning on the AP view. Th e heart is top normal for projection. The mediastinal contour is within normal limits. Atelectasis is noted at the lung bases. The lungs and pleural spaces are otherwise clear. There is no pneumothorax . The bony thorax appears intact. IMPRESSION: No active disease in the chest. ACT 112: Negative or not required by law. Electronically signed by: Home Bacon M.D. 06/24/2020 3:28 PM
[2020-06-24] MEDS ORDERED: TYLENOL #3 HOME PACK PO ONE (16:36)
[2020-06-24] MEDS ORDERED: ACETAMINOPHEN W/CODEINE #3 1 TAB PO ONE (16:36)
[2020-06-24] MEDS ORDERED: DIAZEPAM 5 MG/ML INJ 10ML VIAL IV STA (17:21)
[2020-06-24] MEDS ORDERED: OPTIRAY 320 125ml IV ONE (17:55)
--- NOTE | 2020-06-24 18:10 | CT Scan Report ---
CT OF THE CHEST WITHOUT AND WITH WITH IV CONTRAST CLINICAL HISTORY: Chest pain radiating to the back. Possible thoracic aortic dissection COMPARISON STUDY: Chest x-ray dated 06/24/2020, chest CT dated 08/15/2017 TECHNIQUE: Unenhanced images were obtained through the thorax. Following the IV administration of 120 mL of Optiray-320, CT angiography of the thorax was performed from the thoracic inlet to the lung ba ses. Images were acquired. Images are reviewed in the axial, sagittal, and coronal planes. IV contras t was administered without complication. A dose lowering technique was utilized adhering to the prin ciples of SUSANNE. CT DOSE: 3357.92 mGy.cm FINDINGS: Thyroid: Imaged portions of the thyroid gland are normal in appearance. Thoracic aorta: Noncontrast images reveal no evidence of acute thoracic hematoma. Postcontrast images reveal no evidence of aneurysm. There are no intimal flaps to indicate acute aortic dissection. Pulmonary vasculature: The pulmonary trunk is normal in caliber. There are no central filling defects identified to suggest pulmonary embolus. Note that this examination was not protocoled for the evalu ation of pulmonary emboli. HEART: The heart is normal in size. There is no pericardial effusion Lungs and pleural spaces: There are no pleural effusions. There is no pneumothorax. There are depende nt atelectatic changes. There are stable tiny typically benign perifissural nodules. Mediastinum: There is no evidence of pathologic mediastinal lymphadenopathy Ailyn: There is known to pathologic hilar adenopathy Axilla: There is no evidence of pathologic axillary lymphadenopathy Upper abdomen: Partially visualized upper abdominal viscera is within normal limits. Skeletal structures: There are no lytic or blastic osseous lesions. IMPRESSION: 1. No acute intrathoracic findings 2. No evidence of thoracic aortic aneurysm or dissection 3. No evidence of focal pulmonary consolidation. No evidence of pneumothorax. ACT 112: Negative or not required by law. Electronically signed by: Maverick Curry M.D. 06/24/2020 6:08 PM
--- NOTE | 2020-06-24 18:14 | CT Scan Report ---
CT angio abdomen pelvis w con CT DOSE: CLINICAL HISTORY: Chest and abdominal pain. Possible dissection. TECHNIQUE: CT angiography abdomen and pelvis was performed in a dynamic helical fashion during intrav enous administration of 120 cc of Optiray 320. MIP images were acquired. A dose lowering technique w as utilized adhering to the principles of ALARA. COMPARISON STUDY: CT scan performed 08/15/2017 FINDINGS: The visualized portions lung bases reveal dependent atelectatic change. No hepatic masses are visualized on this arterial phase study. No splenic masses are visualized. No pancreatic masses are visualized. No adrenal masses are visualized. No solid renal masses are visualized. There is a 3 mm lower pole left renal cyst. There is no hydrone phrosis. There is no evidence of abdominal aortic aneurysm or dissection. There are no transition zones to indicate bowel obstruction. There is no evidence of acute diverticul itis. There are no findings to indicate acute appendicitis. There is no free air. There is no ascites. There is no evidence of pathologic adenopathy. There is no evidence of aortic or iliac artery stenosis. There is no evidence of renal artery stenosi s. There is no evidence of celiac or superior mesenteric artery stenosis. Inferior mesenteric artery is patent. No destructive skeletal lesions are visualized. 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 There is foreshortening of the right femoral neck. The findings are consistent with either de velopment of hip dysplasia, or old slipped capital femoral epiphysis. IMPRESSION: 1. No acute intra-abdominal or pelvic findings 2. No evidence of abdominal aortic aneurysm or dissection. 3. No evidence of celiac, superior mesenteric or renal artery stenosis. 4. No evidence of bowel obstruction. No evidence of free air. ACT 112: Negative or not required by law. Electronically signed by: Maverick Curry M.D. 06/24/2020 6:13 PM
--- NOTE | 2020-06-24 20:18 | History & Physical Report ---
Date of Service June 24, 2020 Assessment & Plan (1) Chest pain of uncertain etiology: Left parasternal chest pain of uncertain etiology- The patient will be admitted to telemetry for serial cardiac enzymes, serial EKG's, cardiac rhythm monitoring and a 2-D echocardiogram with Dopplers. Pain is not reproducible with pressure on examination, but he does report an acute worsening when he is moving. Differential includes but not limited to: coronary ischemia, pleuritis, pericarditis, costochondritis (Nereyad's syndrome) Order Lyme test. Present on Admission?: Yes (2) Subtherapeutic international normalized ratio (INR): INR subtherapeutic at 1.5. Bridge with Lovenox 1.5 mg kilogram subcu tonight and daily until INR greater than or equal to 2 Present on Admission?: Yes (3) MRSA (methicillin resistant Staphylococcus aureus) infection: Postoperative wound infection/MRSA- Continue Bactrim DS Present on Admission?: Yes (4) Postoperative wound infection: See above Present on Admission?: Yes (5) Chronic deep vein thrombosis (DVT) of right lower extremity: On chronic warfarin IV anticoagulation clinic Present on Admission?: Yes (6) Pulmonary embolus and infarction: On chronic warfarin via anticoagulation clinic Present on Admission?: Yes (7) buttermaker helper (current) use of anticoagulants: See above Present on Admission?: Yes History of Present Illness Chief Complaint: The patient presents to the emergency department with complaint of left parasternal chest pain that has been developing over the past week. Primary Care Provider: NO PCP The patient is a 44-year-old male with a past medical history including chronic pain syndrome, pulmonary embolus and infarction, chronic right lower extremity DVT, long-term use of anticoagulants, postoperative wound infection, MRSA infection and hematoma of left lower extremity. He presents to the emergency department with persistence of left parasternal chest pain, though somewhat aggravated by position and completely relieved at rest. He does have some associated dyspnea on exertion as well. He denies any cough. He denies any recent travels or sick exposures. He was at [facility] yesterday, for the chest pain, and did have a work-up including a CTA of the chest which was negative. In the emergency department at [facility], the patient has undergone a CTA of chest abdomen pelvis which have been normal, and has had a normal chest x-ray. His INR is subtherapeutic at 1.5. His EKG shows normal sinus rhythm at 69 bpm. Allergies Allergy/AdvReac Type Severity Reaction Status Date / Time bupropion Allergy Intermediate HIVES Verified 06/24/20 17:17 Home Medications Home Medications Medication Instructions Recorded Confirmed Type hydroxyzine HCl 10 mg tablet 10 mg PO HS PRN tab 06/12/18 06/24/20 History multivitamin 2 tab PO DAILY tab 10/03/18 06/24/20 History lactobacillus combo no.11 15 1 cap PO DAILY 01/14/19 06/24/20 History billion cell sprinkle capsule sulfamethoxazole 800 1 tab PO BID tab 03/19/19 06/24/20 History mg-trimethoprim 160 mg tablet Medical [place] 1 puff INHALATION UD PRN 09/01/19 06/24/20 History aripiprazole [Abilify] 10 mg PO DAILY 09/01/19 06/24/20 History warfarin 5 mg tablet See Rx Instructions PO .COMPLEX 04/21/20 06/24/20 Rx #100 tab dextroamphetamine-amphetamine 60 mg PO DAILY 06/24/20 06/24/20 History [Adderall XR] fluvoxamine 100 mg PO DAILY 06/24/20 06/24/20 History glucos sul 0WVt-lna-qzpct-C-Mn 2 cap PO DAILY 06/24/20 06/24/20 History [Glucosamine Chondroitin] Past Med/Surg History Medical History (Updated 06/24/20 @ 22:56 by Pedro Luis White MD) Chronic deep vein thrombosis (DVT) of right lower extremity Chronic pain [place] filter in place No pertinent family history Osteoarthritis of knee Pulmonary embolus and infarction Surgical History (Updated 06/24/20 @ 14:27 by Uzair Muniz) No pertinent past surgical history Social History Smoking Status: Former smoker Hx Alcohol Use: No Hx Substance Use: No Preferred Language: Greek Communication Ability: Effective Playground Aide Required: No Beliefs That Will Affect Care: None Current Living Situation: Spouse Other Information That Helps Us Care for You: No Feels Safe at Home: Yes Safety Concerns: Feels Safe At This Time Assistive Devices: Glasses Review of Systems Review of Systems: The patient denies palpitations, change in chronic lower extremity swelling, sore throat, fevers, chills, sweats, nausea, vomiting, diarrhea , constipation, abdominal pain, pelvic pain, blood in urine or stool, dysuria, urinary frequency or urgency, lightheadedness, dizziness, headache, memory loss, loss of consciousness, rash, abnormal bruising or bleeding, imbalance, focal or generalized weakness, numbness or tingling in arms or legs, generalized arthralgias or myalgias, back or neck pain, or night sweats. The review of systems is otherwise negative other than for that already noted above, and at least 10 systems have been reviewed. Physical Exam Physical Exam: The patient is awake, alert and oriented 3, well developed and well nourished, normocephalic and atraumatic, lying in bed and in no acute distress. HEENT--PERRL, EOMI, mucous membranes and oropharynx Normal. Neck--supple. No JVD. No bruits. Thyroid normal, trachea midline, no adenopathy. Heart--normal S1 and S2. No murmurs, rubs or gallops. Lungs--clear bilaterally, no respiratory distress, no accessory muscle use. Abdomen--normal bowel sounds and soft. Nontender. Nondistended. Morbidly obese Extremities--no cyanosis or clubbing. No edema. Dermatologic--normal skin turgor, normal color, no abnormal lymph nodes, no rash. Neurologic--cranial nerves II through XII grossly intact. Rheumatologic--normal range of motion. Psychiatric--normal affect. Results & Data Results & Data ([facility]) Vital Signs (Past 12 Hours) Vital Signs Temp Pulse Pulse Resp BP BP Pulse Ox 06/24/20 19:16 66 24 117/74 96 06/24/20 18:37 72 20 123/70 95 06/24/20 17:08 75 22 102/63 96 06/24/20 17:00 76 22 102/63 96 06/24/20 16:58 74 26 H 106/61 96 06/24/20 16:04 72 22 106/61 95 06/24/20 15:00 71 29 H 148/82 H 94 06/24/20 14:37 68 25 H 145/79 H 95 06/24/20 14:25 98.1 F 71 24 161/100 H 95 06/24/20 14:23 70 17 161/100 H 96 Laboratory Results Laboratory Results WBC 8.92 K/uL (4.8-10.8) 06/24/20 14:37 RBC 5.04 M/uL (4.7-6.1) 06/24/20 14:37 Hgb 15.6 g/dL (14.0-18.0) 06/24/20 14:37 Hct 45.0 % (42-52) 06/24/20 14:37 MCV 89.3 fL (80-100) 06/24/20 14:37 MCH 31.0 pg (25-34) 06/24/20 14:37 MCHC 34.7 g/dL (32-36) 06/24/20 14:37 RDW Std Deviation 48.9 fL (36.4-46.3) H 06/24/20 14:37 RDW Coeff of Rebeka 15.1 % (11.5-14.5) H 06/24/20 14:37 Plt Count 190 K/uL (130-400) 06/24/20 14:37 MPV 8.7 fL (7.4-10.4) 06/24/20 14:37 Immature Gran % (Auto) 0.2 % 06/24/20 14:37 Neut % (Auto) 66.9 % 06/24/20 14:37 Lymph % (Auto) 23.0 % 06/24/20 14:37 Placer % (Auto) 7.6 % 06/24/20 14:37 Eos % (Auto) 2.0 % 06/24/20 14:37 Baso % (Auto) 0.3 % 06/24/20 14:37 Neut # (Auto) 5.96 K/uL (1.4-6.5) 06/24/20 14:37 Lymph # (Auto) 2.05 K/uL (1.2-3.4) 06/24/20 14:37 Placer # (Auto) 0.68 K/uL (0.11-0.59) H 06/24/20 14:37 Eos # (Auto) 0.18 K/uL (0-0.5) 06/24/20 14:37 Baso # (Auto) 0.03 K/uL (0-0.2) 06/24/20 14:37 Immature Gran # (Auto) 0.02 K/uL (0.00-0.02) 06/24/20 14:37 PT 15.1 Seconds (9.0-12.0) H 06/24/20 14:37 INR 1.5 (0.9-1.1) H 06/24/20 14:37 APTT 30.7 Seconds (21.0-31.0) 06/24/20 14:37 PTT Ratio 1.1 06/24/20 14:37 Sodium 139 mmol/L (136-145) 06/24/20 14:37 Potassium 3.8 mmol/L (3.5-5.1) 06/24/20 14:37 Chloride 106 mmol/L (98-107) 06/24/20 14:37 Carbon Dioxide 26 mmol/L (21-32) 06/24/20 14:37 Anion Gap 7.0 (3-11) 06/24/20 14:37 BUN 18 mg/dl (7-18) 06/24/20 14:37 Creatinine 1.37 mg/dl (0.6-1.4) 06/24/20 14:37 Est Cr Clr Drug Dosing 92.9 ml/min 06/24/20 14:37 Est GFR ( Amer) 71.2 06/24/20 14:37 Est GFR (Non-Af Amer) 61.4 06/24/20 14:37 BUN/Creatinine Ratio 12.9 (10-20) 06/24/20 14:37 Glucose 128 mg/dl (70-99) H 06/24/20 14:37 Calcium 9.4 mg/dl (8.5-10.1) 06/24/20 14:37 Total Bilirubin 0.3 mg/dl (0.2-1) 06/24/20 14:37 Direct Bilirubin < 0.1 mg/dl (0-0.2) 06/24/20 14:37 AST 20 U/L (15-37) 06/24/20 14:37 ALT 42 U/L (12-78) 06/24/20 14:37 Alkaline Phosphatase 115 U/L (45-117) 06/24/20 14:37 Troponin I < 0.015 ng/ml (0-0.045) 06/24/20 17:44 Total Protein 7.2 gm/dl (6.4-8.2) 06/24/20 14:37 Albumin 3.6 gm/dl (3.4-5.0) 06/24/20 14:37 Lipase 276 U/L (73-393) 06/24/20 14:37 Diagnostic Findings [facility], [place] [phone] XRay Report Patient: CLAUDIA GOMES Date: 06/24/20 MR#: [id number]: Constance ARECHIGA Acct ID:[id number]: [address] Date: 1975[facility] Zip: [place] [address] Age: 44Location: ED Sex: MRoom/Bed: Att Phy:Diagnosis: CHEST PAIN Elizabeth Phy: PCP,NOService Date: 06/24/20 Fam Phy:Interpreting Phy: Home Bacon MD Admit Phy: Ordering Phy: Uzair Muniz MD cc: ~ TWO VIEW CHEST CLINICAL HISTORY: Atypical chest pain. FINDINGS: AP and lateral chest radiographs are compared to chest x-ray and chest CT dated 08/15/2017. The examination is degraded by large body habitus and apical lordotic positioning on the AP view. The heart is top normal for projection. The mediastinal contour is within normal limits. Atelectasis is noted at the lung bases. The lungs and pleural spaces are otherwise clear. There is no pneumothorax. The bony thorax appears intact. IMPRESSION: No active disease in the chest. ACT 112: Negative or not required by law. Electronically signed by: Home Bacon M.D. 06/24/2020 3:28 PM Dictated: 06/24/20 1527 Transcribed: 06/24/20 1527 [facility], [place] [phone] CT Scan Report Patient: CLAUDIA GOMES Date: 06/24/20 MR#: [id number]: Constance ARECHIGA Acct ID:[id number]: [address] Date: 1975[facility] Zip: [place] [address] Age: 44Location: ED Sex: MRoom/Bed: Att Phy:Diagnosis: CHEST PAIN Elizabeth Phy: PCP,NOService Date: 06/24/20 Fam Phy:Interpreting Phy: Maverick Curry MD Admit Phy: Ordering Phy: Uzair Muniz MD cc: ~ CT angio abdomen pelvis w con CT DOSE: CLINICAL HISTORY: Chest and abdominal pain. Possible dissection. TECHNIQUE: CT angiography abdomen and pelvis was performed in a dynamic helical fashion during intravenous administration of 120 cc of Optiray 320. MIP images were acquired. A dose lowering technique was utilized adhering to the principles of ALARA. COMPARISON STUDY: CT scan performed 08/15/2017 FINDINGS: The visualized portions lung bases reveal dependent atelectatic change. No hepatic masses are visualized on this arterial phase study. No splenic masses are visualized. No pancreatic masses are visualized. No adrenal masses are visualized. No solid renal masses are visualized. There is a 3 mm lower pole left renal cyst. There is no hydronephrosis. There is no evidence of abdominal aortic aneurysm or dissection. There are no transition zones to indicate bowel obstruction. There is no evidence of acute diverticulitis. There are no findings to indicate acute appendicitis. There is no free air. There is no ascites. There is no evidence of pathologic adenopathy. There is no evidence of aortic or iliac artery stenosis. There is no evidence of renal artery stenosis. There is no evidence of celiac or superior mesenteric artery stenosis. Inferior mesenteric artery is patent. No destructive skeletal lesions are visualized. 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 There is foreshortening of the right femoral neck. The findings are consistent with either development of hip dysplasia, or old slipped capital femoral epiphysis. IMPRESSION: 1. No acute intra-abdominal or pelvic findings 2. No evidence of abdominal aortic aneurysm or dissection. 3. No evidence of celiac, superior mesenteric or renal artery stenosis. 4. No evidence of bowel obstruction. No evidence of free air. ACT 112: Negative or not required by law. Electronically signed by: Maverick Curry M.D. 06/24/2020 6:13 PM Dictated: 06/24/201807 Transcribed: 06/24/201807 [place], [place] [phone] CT Scan Report Patient: CLAUDIA GOMES PAdmit Date: 06/24/20 MR#: [id number]: [address] Acct ID:[id number]: [address] Date: 1975City Zip: [place] [address] Age: 44Location: ED Sex: MRoom/Bed: Att Phy:Diagnosis: CHEST PAIN Elizabeth Phy: PCP,NOService Date: 06/24/20 [facility] Phy:Interpreting Phy: Maverick Curry MD Admit Phy: Ordering Phy: Uzair Muniz MD cc: ~ CT OF THE CHEST WITHOUT AND WITH WITH IV CONTRAST CLINICAL HISTORY: Chest pain radiating to the back. Possible thoracic aortic dissection COMPARISON STUDY: Chest x-ray dated 06/24/2020, chest CT dated 08/15/2017 TECHNIQUE: Unenhanced images were obtained through the thorax. Following the IV administration of 120 mL of Optiray-320, CT angiography of the thorax was performed from the thoracic inlet to the lung bases. Images were acquired. Images are reviewed in the axial, sagittal, and coronal planes. IV contrast was administered without complication. A dose lowering technique was utilized adhering to the principles of ALARA. CT DOSE: 3357.92 mGy.cm FINDINGS: Thyroid: Imaged portions of the thyroid gland are normal in appearance. Thoracic aorta: Noncontrast images reveal no evidence of acute thoracic hematoma. Postcontrast images reveal no evidence of aneurysm. There are no intimal flaps to indicate acute aortic dissection. Pulmonary vasculature: The pulmonary trunk is normal in caliber. There are no central filling defects identified to suggest pulmonary embolus. Note that this examination was not protocoled for the evaluation of pulmonary emboli. HEART: The heart is normal in size. There is no pericardial effusion Lungs and pleural spaces: There are no pleural effusions. There is no pneumothorax. There are dependent atelectatic changes. There are stable tiny typically benign perifissural nodules. Mediastinum: There is no evidence of pathologic mediastinal lymphadenopathy Ailyn: There is known to pathologic hilar adenopathy Axilla: There is no evidence of pathologic axillary lymphadenopathy Upper abdomen: Partially visualized upper abdominal viscera is within normal limits. Skeletal structures: There are no lytic or blastic osseous lesions. IMPRESSION: 1. No acute intrathoracic findings 2. No evidence of thoracic aortic aneurysm or dissection 3. No evidence of focal pulmonary consolidation. No evidence of pneumothorax. ACT 112: Negative or not required by law. Electronically signed by: Maverick Curry M.D. 06/24/2020 6:08 PM Dictated: 06/24/201802 Transcribed: 06/24/201802 Code Status & VTE Plan Code Status Full code VTE Prophylaxis Plan VTE Prophylaxis will be ordered: Yes PG Care Time/CCT Total # of Minutes Spent Total Time Spent with Patient: Total time spent is greater than 50% in co ordination of care (as documented) at patient's floor/unit and/or counseling patient: Coding Level of Care Code 66660 OBS Care - Level 3 Diagnoses Chest pain of uncertain etiology R07.9 Subtherapeutic international normalized ratio (INR) R79.1 MRSA (methicillin resistant Staphylococcus aureus) infection A49.02 Postoperative wound infection T81.4XXA Chronic deep vein thrombosis (DVT) of right lower extremity I82.501 Pulmonary embolus and infarction I26.99 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
[2020-06-24] MEDS ORDERED: ALUMINUM/MAGNESIUM SUSP 30 ML UDC PO PRN (22:24)
[2020-06-24] MEDS ORDERED: ONDANSETRON INJ 2 MG/ML 2 ML VIAL IV PRN (22:24)
[2020-06-24] MEDS ORDERED: hydrOXYzine HCl 10 MG TAB PO PRN (22:24)
[2020-06-24] MEDS ORDERED: MAGNESIUM HYDROXIDE SUSP 30 ML UDC PO PRN (22:24)
[2020-06-24] MEDS ORDERED: ACETAMINOPHEN 325 MG TAB PO PRN (22:24)
--- NOTE | 2020-06-24 23:07 | Electrocardiogram Report ---
Test Reason : Blood Pressure : / mmHG Vent. Rate : 069 BPM Atrial Rate : 069 BPM P-R Int : 146 ms QRS Dur : 090 ms QT Int : 382 ms P-R-T Axes : 034 072 069 degrees QTc Int : 409 ms Normal sinus rhythm Normal ECG When compared with ECG of 09-DEC-2017 13:37, No significant change was found Confirmed by Koko Peguero ([id number]) on 06/24/2020 11:06:41 PM Referred By: REFERRED SELF Confirmed By:Koko Peguero
[2020-06-24] MEDS ORDERED: ENOXAPARIN 150 MG/ML SYR SQ SCH (23:15)
[2020-06-24 23:51] LABS: Lyme Ab IgG w/WB Rflx Negative (Negative); Lyme Ab IgM w/WB Rflx Negative (Negative)
[2020-06-25] MEDS ORDERED: MEDICAL MARIJUANA INH SCH (00:15)
[2020-06-25] MEDS: ENOXAPARIN 150 MG/ML SYR SQ SCH ×2 (00:17→21:30)
[2020-06-25] MEDS: WARFARIN SOD 5 MG TAB PO SCH ×2 (00:18→15:54)
[2020-06-25] MEDS: DICLOFENAC SOD 1% GEL 100 GM TUBE EXT SCH ×5 (00:18→21:30)
[2020-06-25] MEDS ORDERED: PERFLUTREN LIPID MICROSPHERE (DEFINITY) IV ONE (08:02)
[2020-06-25] MEDS: ASPIRIN 81 MG ECTAB PO SCH (08:46)
[2020-06-25] MEDS: MULTIVITAMIN TAB PO SCH (08:46)
[2020-06-25] MEDS: ARIPiprazole 10 MG TAB PO SCH (08:46)
[2020-06-25] MEDS: LACTOBACILLUS ACIDOPHILUS (FLORANEX) TAB PO SCH (08:46)
[2020-06-25] MEDS ORDERED: NON-FORMULARY MEDICATION (Glucos Sul 2kcl-Msm-Chond-C-Mn [Glucosamine Chondroitin] 2 CAP) PO SCH (09:00)
[2020-06-25] MEDS ORDERED: DEXTROAMPHETAMINE AMPHETAMINE PO SCH (09:00)
--- NOTE | 2020-06-25 10:44 | XCELERA ---
[id number]___[id number]
--- NOTE | 2020-06-25 10:47 | Electrocardiogram Report ---
Test Reason : Blood Pressure : / mmHG Vent. Rate : 068 BPM Atrial Rate : 068 BPM P-R Int : 166 ms QRS Dur : 096 ms QT Int : 376 ms P-R-T Axes : 058 064 057 degrees QTc Int : 399 ms Normal sinus rhythm Normal ECG When compared with ECG of 24-JUN-2020 14:20, No significant change was found Confirmed by Mo Salcedo ([id number]) on 06/25/2020 10:46:51 AM Referred By: REFERRED SELF Confirmed By:Zane Salcedo
--- NOTE | 2020-06-25 10:48 | Electrocardiogram Report ---
Test Reason : Blood Pressure : / mmHG Vent. Rate : 064 BPM Atrial Rate : 064 BPM P-R Int : 162 ms QRS Dur : 092 ms QT Int : 394 ms P-R-T Axes : 056 073 072 degrees QTc Int : 406 ms Normal sinus rhythm Normal ECG When compared with ECG of 24-JUN-2020 19:12, (unconfirmed) No significant change was found Confirmed by Mo Salcedo ([id number]) on 06/25/2020 10:47:38 AM Referred By: REFERRED SELF Confirmed By:Zane Salcedo
[2020-06-25] MEDS ORDERED: KETOROLAC TROMETHAMINE 15 MG/ML VIAL IV ONE ×2 (12:00→12:39)
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
[2020-06-25 12:31] LABS: Basophils # (auto) 0.02 K/uL (0-0.2); Basophils % (auto) 0.3 %; Eosinophils # (auto) 0.12 K/uL (0-0.5); Eosinophils % (auto) 1.6 %; Hematocrit (blood only) 45.5 % (42-52); Immature Granulocytes # (auto) 0.03 K/uL (0.00-0.02); Immature Granulocytes % (auto) 0.4 %; Lymphocytes # (auto) 1.95 K/uL (1.2-3.4); Lymphocytes % (auto) 25.7 %; Mean Corpuscular Hemoglobin 31.3 pg (25-34); Mean Corpuscular Hgb Conc 35.2 g/dL (32-36); Mean Corpuscular Volume 88.9 fL (80-100); Mean Platelet Volume 8.9 fL (7.4-10.4); Monocytes # (auto) 0.56 K/uL (0.11-0.59); Monocytes % (auto) 7.4 %; Neutrophils # (auto) 4.92 K/uL (1.4-6.5); Neutrophils % (auto) 64.6 %; Platelet Count 169 K/uL (130-400); RDW Coefficient of Variation 14.9 % (11.5-14.5); RDW Standard Deviation 48.1 fL (36.4-46.3); Red Blood Count 5.12 M/uL (4.7-6.1)
[2020-06-25] MEDS: LIDOCAINE 5% 1 PATCH TD SCH (12:40)
[2020-06-25 12:58] LABS: C Reactive Protein 0.39 mg/dl (0-0.29); Calcium 8.6 mg/dl (8.5-10.1); Creatinine Clr Calc Pharmacy 122.4 ml/min; Est GFR (African American) 101.7; Est GFR (Non-African American) 87.7; Potassium 3.7 mmol/L (3.5-5.1)
[2020-06-25] MEDS ORDERED: WARFARIN SOD 5 MG TAB PO SCH (16:00)
[2020-06-25] MEDS ORDERED: Nursing to Pharmacy Communication SCH (17:45)
[2020-06-25] MEDS ORDERED: DULOXETINE HCL 20 MG CAP PO ONE (18:00)
[2020-06-25] MEDS ORDERED: FLUVOXAMINE MALEATE 50 MG TAB PO ONE (18:00)
[2020-06-25] MEDS: MoRPHine SULFATE 2 MG/ML CARP IV PRN (19:24)
[2020-06-25] MEDS ORDERED: KETOROLAC TROMETHAMINE 15 MG/ML VIAL IV PRN (19:30)
[2020-06-25] MEDS ORDERED: KETOROLAC 30 MG/ML VIAL IV ONE (19:30)
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
[2020-06-25] MEDS: SULFAMETHOXAZOLE/TRIMETHOPRIM DS 800/160MG TAB PO SCH (21:30)
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
[2020-06-26] MEDS: MoRPHine SULFATE 2 MG/ML CARP IV PRN ×3 (01:01→10:44)
[2020-06-26] MEDS: DICLOFENAC SOD 1% GEL 100 GM TUBE EXT SCH ×2 (04:36→10:46)
[2020-06-26] MEDS: MULTIVITAMIN TAB PO SCH (07:26)
[2020-06-26] MEDS: LACTOBACILLUS ACIDOPHILUS (FLORANEX) TAB PO SCH (07:27)
[2020-06-26] MEDS: ASPIRIN 81 MG ECTAB PO SCH (07:27)
[2020-06-26] MEDS: SULFAMETHOXAZOLE/TRIMETHOPRIM DS 800/160MG TAB PO SCH (07:29)
[2020-06-26] MEDS: ARIPiprazole 10 MG TAB PO SCH (07:29)
[2020-06-26] MEDS: LIDOCAINE 5% 1 PATCH TD SCH (07:49)
[2020-06-26 08:05] LABS: INR 1.6 (0.9-1.1); Prothrombin Time 16.9 Seconds (9.0-12.0)
[2020-06-26] MEDS ORDERED: DULOXETINE HCL 20 MG CAP PO SCH (09:00)
[2020-06-26] MEDS ORDERED: FLUVOXAMINE MALEATE 50 MG TAB PO SCH (09:00)
[2020-06-26] MEDS ORDERED: AMPHETAMINE ASP/SULF/DEXTRAMPH ER 20 MG CAP PO SCH (09:00)
[2020-06-26] MEDS ORDERED: WARFARIN SOD 5 MG TAB PO ONE (09:15)
--- NOTE | 2020-06-26 09:54 | Electrocardiogram Report ---
Test Reason : Blood Pressure : / mmHG Vent. Rate : 074 BPM Atrial Rate : 074 BPM P-R Int : 170 ms QRS Dur : 094 ms QT Int : 378 ms P-R-T Axes : 262 060 059 degrees QTc Int : 419 ms Unusual P axis, possible ectopic atrial rhythm vs accelerated junctional rhythm Abnormal ECG When compared with ECG of 25-JUN-2020 06:27, Ectopic atrial rhythm has replaced Sinus rhythm Confirmed by Mo Salcedo ([id number]) on 06/26/2020 9:54:02 AM Referred By: REFERRED SELF Confirmed By:Zane Salcedo
--- NOTE | 2020-06-26 17:20 | Discharge Summary ---
Date of Service June 26, 2020 Admission HPI Per Admitting Provider The patient is a 44-year-old male with a past medical history including chronic pain syndrome, pulmonary embolus and infarction, chronic right lower extremity DVT, long-term use of anticoagulants, postoperative wound infection, MRSA infection and hematoma of left lower extremity. He presents to the emergency department with persistence of left parasternal chest pain, though somewhat aggravated by position and completely relieved at rest. He does have some associated dyspnea on exertion as well. He denies any cough. He denies any recent travels or sick exposures. He was at [facility] yesterday, for the ch est pain, and did have a work-up including a CTA of the chest which was negative. In the emergency department at [facility], the patient has undergone a CTA of chest abdomen pelvis which have been normal, and has had a normal chest x-ray. His INR is subtherapeutic at 1.5. His EKG shows normal sinus rhythm at 69 bpm. Principal Diagnosis rib related musculoskeletal chest pain Discharge Exam gen aaox3 pleasant nad heent nc at mmm breathing unlabored no accessory muscles good effort msk/ost - L sided lower ribs around 9-10 tender decreased ROM stuck towards inhalation and a mild degree of costochondral crepitis - balanced ligamentous tension - tissue texture and ROM improved some, if not tenderness. no focal neuro deficits. Discharge Data Allergies Allergy/AdvReac Type Severity Reaction Status Date / Time bupropion Allergy Intermediate HIVES Verified 06/24/20 17:17 Consultations 06/24/20 19:09 ED Decision to Admit Stat 06/24/20 22:24 Consult Case Management - Discharge Planning Routine 06/25/20 08:20 Consult Cardiology Routine Ordered Studies 06/24/20 17:21 CT angio abdomen pelvis w con Stat CT angio chest dissec wo/w con Stat Hospital Course (1) Chest pain: chest pain -does appear rib related - probably heavily biomechanical but also does show some true costochondritis -educated extensively yesterday and today -trial of OMT to loosen rib muscles (done yesterday and today- and rec'd DO follow up in office this week to continue) -stretches demonstrated, encouraged to do ~3-4 times a day -voltaren gel (educated on expectations, duration until effect, etc) -tylenol/motrin (but both short term as in instructions) ----after discharge initially completed, called back to re-discuss breakthrough pain as pt had gotten up out of bed to go to the bathroom and had tremendous pain. felt that tylenol/motrin alone would not be enough to help. discussed that for acute management, really the next in line for pain control would be narcotics - he expressed undersatnding and noted having been on dilauded for a while after prior orthopedic illnesses - and i discussed my main reservations -- namely that he would feel effect of the narcotic "kicking in" as opposed to less of a "kick in" relief from tylenol or motrin and no "kick in" from the actual measures that will get him better (voltaren gel, OMT, stretches) -- and that the biggest risk would be that he could scrap the actual treatment that would get him better due to a falsely perceived lack of efficacy. (discussed sadly seeing this in action with many patients who had followed a similar path and would sincerely say things like "the oxycodone is the only thing that helps" despite never really following through with effective/curative treatments. he expressed understanding of this concern and understanding that temporary pain relief from the oxycodone would not equate actually getting better - and that steps to actually get better would still be needed. further discussed new bodies of knowledge that surprisingly short durations of treatment can lead to physical dependency and that actually narcotics induced hyperalgesia is also a potentially fast onset side effect. he expressed understanding of all of this. that said, since he was experiencing significant pain and in my experience rib pain can be quite intense - we agreed to a very short duration oxycodone for breakthrough (#10 total w a max of q6hr prn breakthrough) with the idea that a few days duration would be enough to allow stretching and voltaren gel to take more effect, and to allow for time to get scheduled with dr kwok for more OMT. (of note, ACS ruled out by duration, negative trops, echo; PE and dissection ruled out by CT, no pneumonia by same/lack of other characteristic symptoms; mother asking about bone scan or MRI - discussed that those would be low yield and unlikely to show much of significance, hua with such a telling hx and PE c/w rib related pain) (2) Subtherapeutic international normalized ratio (INR): PEs about 3yrs ago - no need for ongoing bridging right now - just for resumption of therapeutic range. 5mg coumadin given additionally this AM - continue home dose, f/u w coumadin clinic 06/28 or 06/29. Total Time Total Time Spent Total Time Spent (In Minutes): >30 Discharge Plan Discharge Items Patient Disposition: Home - Self-Care Reason For Visit: LEFT SIDE CHEST PAIN Discharge Diagnosis: rib related chest pain (see below) Activity: Resume your previous activity Activity Comment: any heavy lifting or pulling will exacerbate the pain at this time Non-emergency contact: Primary Care Provider Call non-emergency contact if: you have any medication questions and your sym ptoms worsen Follow-up/Referrals: PCP,NO [Primary Care Provider] - Diet: Regular Addtl Attending Provider Instructions: rib related chest pain -as we discussed, your symptoms and exam findings fit really well with the pain being caused by your ribs - particularly the lower two ribs on the left side of your chest (ribs 9,10) -- because they have very sensitive muscles in between them, rib pain can really hurt intensely. because your abdominal muscles use your ribcage as the top "anchor" for pulling, when you move anything with your core muscles, it will pull on the ribs as well - which is why most movements made things hurt so much -while the situation looked rib related, they did also do a very extensive workup which effectively ruled out heart attack/heart issues, recurrent blood clots, pneumonia or other lung problems, blood vessel/aortic problems as the cause of the pain. as we were discussing - you really don't end up seeing rib dysfunction on imaging which is why we didn't put you through more tests -typically, ribs can be stubborn - it will often take a while and a good bit of work to get this better - to that end it would make the most sense to go about this from multiple angles at the same time -directly working on the ribs: i did some techniques while you were here to balance the muscles and take tension off the ribs - often this will slowly but surely start to help things calm down - but remember that most of the time it is a bit of a neuromuscular retraining/muscle memory thing - so just like we couldn't teach your muscles to hit a perfect slapshot in one time on the ice, we can't really get the rib muscles to stay settled with working on you once or twice - sometimes you get eduardo - but most of the time it takes longer/repeated work to get things settled - to that end i would definitely recommend that you pickers material handlers Dr Roe Kwok DO as your new PCP - since Dr Duran retired and you need a new primary doc anyway, we should have you work with a doc who can help this stuff directly as well. additionally, you should stretch your chest wall ~3-4 times a day. the most effective way to do this will be to take a big deep breath and hold it --> this will probably hurt some as it stretches things - and then wing out your arms/open your chest as best you can -topical diclofenac - because the ribs and their muscles are fairly shallow the topical voltaren will get into it fairly well. as we discussed, this does not work well (really it doesn't work at all) on an "as needed basis" - meaning if you don't do it routinely it is almost certainly not going to help. on the other hand, when people use it routinely 4 times a day - typically a few days into treatment it starts to help settle the pain a good deal. obviously 4 times a day is ideal but tough to remember - if you're able to pull off at least 3, in my experience it still usually gets the job done - but again, we only have put three doses on you so far - so not even a full day's worth of dosing - so keep using it 4 times a day and wait until probably saturday to really road mender how well it's working -tylenol and ibuprofen - for the next few days, it would be reasonable to alternate tylenol and ibuprofen to help control the pain as well. as a cash who's on coumadin, i would not want you using the ibuprofen past maybe saturday or - and probably only take a max of about 600mg per dose and only about 3 doses a day. the tylenol take a maximum of 2000mg in a day and limit it to about 2 weeks at the most (but that should be enough time to allow the stretching/working on ribs/voltaren gel to all have taken effect) coumadin -your INR was a little low at 1.6, since you're years removed from your clots and your current CT showed no new clotting, we don't have do send you home with "bridging" (where we have you on lovenox until the INR is above 2) - but we gave some extra coumadin this morning, and will want you to continue on with your regular dosing as well - and then have an INR checked again on 06/28 or 06/29 Pending Studies at Discharge: No Stand-Alone Forms: My [facility], Smoking Cessation Medications and DC Order Prescriptions: New diclofenac sodium 1 % gel 2 g topical QID Qty: 100 RF: 0 oxycodone 5 mg capsule 5 mg PO Q6H PRN (Reason: severe/breakthrough pain) Qty: 10 RF: 0 Continued hydroxyzine HCl 10 mg tablet 10 mg PO HS PRN (Reason: anxiety) RF: 0 multivitamin tablet 2 tab PO DAILY RF: 0 Probiotic 15 billion cell capsule, sprinkle 1 cap PO DAILY RF: 0 sulfamethoxazole-trimethoprim [Bactrim DS] 800-160 mg tablet 1 tab PO BID RF: 0 warfarin 5 mg tablet See Rx Instructions PO .COMPLEX Qty: 100 RF: 0 fluvoxamine 100 mg tablet 100 mg PO DAILY RF: 0 dextroamphetamine-amphetamine [Adderall XR] 30 mg capsule,extended release 24hr 60 mg PO DAILY RF: 0 Glucosamine Chondroitin 550-30-1 mg Capsule 2 cap PO DAILY RF: 0 aripiprazole [Abilify] 10 mg tablet 10 mg PO DAILY RF: 0 Medical [place] 1 puff inhalation UD PRN (Reason: Pain) RF: 0 Discharge Orders: Discharge Order (Routine); Ordered 06/26/20 Ordered By: Steven Alcocer Admission Data Admit Date/Time: 06/24/20 20:17 Attending Provider: Steven Alcocer Admit Provider: Pedro Luis White Primary Care Provider: PCP,NO Other Providers: Pedro Luis White ; Balwinder Salcedo ; Francis Branch Other Interventions: Discharge Summary Assessment (RN) Last Done: 06/26/20 10:57 Coding Level of Care Code 48189 OBS Care - Discharge Diagnoses Chest pain R07.9 Chest pain type: unspecified Subtherapeutic international normalized ratio (INR) R79.1
[2020-06-29] MEDS ORDERED: WARFARIN SOD 5 MG TAB PO SCH (16:00)
[2020-06-29] MEDS ORDERED: WARFARIN SOD 10 MG TAB PO SCH (16:00)
== END 2020-06-26 14:53 | disposition home or self-care (01) ==
LOC: 2W 14:16 → ED 14:16 → SUATTDRO 20:17 → 2W 21:47